=== PATIENT | male | born 1940 | race Caucasian/White ===

== ENCOUNTER → 2017-10-26 09:28 | Outpatient (CLI) | payer MEDICARE, SELFPAY ==
[2016-01-28 10:00] VITALS: BMI 30.7
[2017-08-12 13:58] VITALS: BP 159/78; BMI 31.9
[2017-10-26 10:00] VITALS: PULSE 70; PULSE 88; PULSE 94; PULSE 95; PULSE 96; O2SAT 93; O2SAT 94; O2SAT 95; O2SAT 98
--- NOTE | 2017-10-26 15:05 | WT_ITS ---
PSN 6 Minute Walk Test - 6 Minute Walk Test 6 Minute Walk Test: 6 Minute Walk Test PSN:6-Minute Walk Test Start: 10/26/17 10: 27 Freq: Status: Active Protocol: RESP.6MINW Document 10/26/17 10:00 HG (Rec: 10/26/17 10:30 HG [id number]) 6 Minute Walk Test Date Performed 10/26/17 Time Performed 10:15 Height 5 ft 6 in Weight: 87.09 kg Weight in Pounds 192.[address]: Davis Morfin Assistive device used: Cane Pre-test Oxygen Delivery Method Room Air Pulse Ox (%) 95 Pulse Rate (60-100 beats/min) 70 Dyspnea Juan Scale (0-10) 2 Exertion Juan Scale (6-20) 8 1st minute Oxygen Delivery Method Room Air Pulse Ox (%) 98 Pulse Rate (60-100 beats/min) 96 2nd minute Oxygen Delivery Method Room Air Pulse Ox (%) 93 Pulse Rate (60-100 beats/min) 96 3rd minute Oxygen Delivery Method Room Air Pulse Ox (%) 94 Pulse Rate (60-100 beats/min) 94 4th minute Oxygen Delivery Method Room Air Pulse Ox (%) 93 Pulse Rate (60-100 beats/min) 94 5th minute Oxygen Delivery Method Room Air Pulse Ox (%) 95 Pulse Rate (60-100 beats/min) 96 6th minute Oxygen Delivery Method Room Air Pulse Ox (%) 95 Pulse Rate (60-100 beats/min) 95 Post-test Oxygen Delivery Method Room Air Pulse Ox (%) 95 Pulse Rate (60-100 beats/min) 88 Dyspnea Juan Scale (0-10) 2 Exertion Juan Scale (6-20) 8 Full Laps Walked 11 Partial Lap, Number of Tiles Walked 0 Total Distance Walked (ft) 649 - Interpretation Interpretation: The patient was able to walk 649 feet over the course of 6 minutes on room air with the assistance of a cane. There was no significant tachycardia or desaturations noted during testing. These findings are consistent with a musculoskeletal limitation exercise tolerance. - Recommendations Recommendations: No supplemental oxygen is indicated at this time.
--- NOTE | 2017-10-26 15:08 | PFTCOMP ---
COMPLETE PULMONARY FUNCTION TEST INTERPRETATION Brief HPI: Patient is a 77 year old male, currently under the care of myself, who presents to [facility] for complete pulmonary function tests secondary to diagnosis of COPD. Respiratory therapist reports good effort and reproducible results. Interpretation: Forced expiration spirometry shows no large airways obstructive ventilatory defect with an FEV1 of 66% predicted. There is no significant bronchodilator response by ATS criteria. Spirograms are of good quality and plateau normally. The respiratory flow volume loop shows decreased expiratory flow rates at high lung volumes consistent with small airways obstruction. Lung volumes by body plethysmography show a decreased total lung capacity at 4.17 L, 77% predicted. All other lung volumes are reduced symmetrically. Diffusion capacity by carbon monoxide is decreased at 51 % predicted. The airway resistance is elevated. Compared to previous pulmonary function tests from 09/16/2015, there has been no significant change. Impression: Mild restrictive ventilatory defect with a symmetric reduction diffusing capacity consistent with interstitial lung disease. There is been no significant change compared to previous testing
== END ==
PROVIDERS: Family Provider Student in an Organized Health Care Education/Training Program; PCP Student in an Organized Health Care Education/Training Program; Visit Provider Internal Medicine Critical Care Medicine
DX: J96.11 Chronic respiratory failure with hypoxia (principal); J44.9 Chronic obstructive pulmonary disease, unspecified
CPT/HCPCS: 94060; 94618; 94726; 94729

== ENCOUNTER 2017-11-10 21:14 | Emergency (ER) | payer MEDICARE, SELFPAY ==
[2016-01-28 10:00] VITALS: BMI 30.7
[2017-11-10 21:15] VITALS: BP 86/44; PULSE 68; RESP 19; TEMP 37.2; O2SAT 93; BMI 30.9
--- NOTE | 2017-11-10 21:26 | EKG12_ITS ---
Test Reason : HYPOTENSION Blood Pressure : / mmHG Vent. Rate : 068 BPM Atrial Rate : 068 BPM P-R Int : 202 ms QRS Dur : 166 ms QT Int : 454 ms P-R-T Axes : 023 -42 016 degrees QTc Int : 482 ms Normal sinus rhythm Left axis deviation Right bundle branch block Abnormal ECG Confirmed by CHELA CHOU, MURIEL ([id number]), book or script editor TWAN JERONIMO ([id number]) on 11/12/2017 3:40:42 PM Referred By: SUSAN Confirmed By:MURIEL YORK MD
[2017-11-10 21:45] LABS: Absolute Lymphocyte Count 0.94 X10^3/ul (0.83-4.51); Absolute Neutrophil Count 11.6 X10^3/uL (2.0-7.7); Basophil# 0.01 X10^3/uL; Basophil% 0.1 % (0-1); Hematocrit 32.7 % (40-54); Hemoglobin 10.8 g/dl (13.0-16.5); Lymphocyte # 0.94 X10^3/ul (4.0); Lymphocyte % 6.9 % (19-41); Mean Corpuscular Hgb 31.4 pg (27.0-32.0); Mean Corpuscular Volume 95.1 fL (80-94); Mean Platelet Vol. 10.4 fl (6.2-12.0); Monocyte# 0.98 X10^3/uL; Monocyte% 7.2 % (0-10); Neutrophil % 85.7 % (47-70); POSITIVE COUNT NO; POSITIVE DIFFERENTIAL NO; Platelet Count 212 K/mm3 (150-450); RBC Distribution Width CV 14.3 % (11.6-14.6); RBC Distribution Width SD 49.1 fl (35.1-43.9); Red Blood Count 3.44 M/mm3 (4.6-6.2); White Blood Count 13.6 K/mm3 (4.4-11.0)
[2017-11-10 21:46] LABS: POSITIVE MORPHOLOGY NO
--- NOTE | 2017-11-10 21:50 | RAD_ITS ---
STUDY: X-RAY CHEST REASON FOR EXAM: Male, 77 years old. Lethargy. Hypotension TECHNIQUE: Single AP portable view of the chest. COMPARISON: March 14, 2017 FINDINGS: Pacemaker device on the left. There is elevation the right hemidiaphragm. There is lower lung scarring or atelectasis. There is pleural fibrotic scarring of the right costophrenic angle. Sternal cerclage wires are present from a prior sternotomy. There is cardiac enlargement. Normal mediastinum and sadiq. Normal visualized pulmonary arteries. There is atherosclerotic calcification of the aortic arch with tortuosity. There is demineralization of the osseous structures. Postoperative changes of the right shoulder. There is no demonstrated abnormality of the visualized soft tissue structures of the upper abdomen. RAD/Chest 1 View (Portable) IMPRESSION: Cardiac enlargement. No focal infiltrate. Electronically Signed: Srinivas Colmenares MD at 23:07 EDT , Service support ,
[2017-11-10 22:02] LABS: ALB/GLOB Ratio 0.8 RATIO (0.9-2.4); AST(SGOT) 537 U/L (15-37); Alanine Aminotransfer ALT/SGPT 486 U/L (16-61); Alkaline Phosphatase 222 U/L (45-117); Anion Gap 6 (5-15); BUN 38 mg/dL (7-18); BUN/Creat Ratio 15.2 RATIO (10-20); Calcium,Total 8.5 mg/dL (8.5-10.1); Chloride 105 mmol/L (98-107); EST Glomerular Filtration Rate 27 mL/min (>60); Est Glom Filt Rate - Afr Amer 32 mL/min (>60); Estimated Creatinine Clearance 21.98 ml/min; Globulin 3.7 g/dL (2.2-4.2); Glucose 252 mg/dL (74-106); Potassium 4.5 mmol/L (3.5-5.1); Protein, Total 6.7 g/dL (6.4-8.2); Sodium Level 138 mmol/L (136-145)
--- NOTE | 2017-11-10 22:08 | CT_ITS ---
STUDY: CT ABDOMEN AND PELVIS WITHOUT CONTRAST REASON FOR EXAM: Male, 77 years old. Hypotension. Lethargy RADIATION DOSAGE (If Supplied By Facility): CTDIvol = ( 12.78 ) mGy, DLP = ( 721.52 ) mGycm TECHNIQUE: Transaxial images were obtained from the dome of the diaphragm to the symphysis pubis without oral contrast, and without intravenous contrast. Sagittal and coronal images were reconstructed. Individualized dose optimization techniques were used for this CT. COMPARISON: None. FINDINGS: There is lower lung atelectasis. There is sternotomy wires. There are pacemaker wires in the heart. Mild central biliary dilatation or liver. The common duct measures 1.5 cm. There are multiple gallstones. There are multiple stones in the distal common bile duct, series 2 images 78/207 through 86/207. There are multiple benign calcified granulomata of the liver and spleen. Normal pancreas. Normal bilateral adrenal glands. Normal right kidney. Normal left kidney. No stones or hydronephrosis. Normal visualized stomach. Normal small intestine. Normal colon. There is non-visualization of the appendix. There is diffuse atherosclerotic calcification of the abdominal aorta, without a demonstrated aneurysm. Normal inferior vena cava. Normal retroperitoneum. There is wall thickening of the urinary bladder. There is no free fluid in the abdomen or pelvis. Normal abdominal wall. There are diffuse degenerative changes of the visualized lumbar spine. CT/Abdomen/Pelvis without Cont IMPRESSION: Cholelithiasis with choledocholithiasis. N.B. : The above information has been verbally conveyed by Srinivas Colmenares MD to Dr Emerson Cano , [facility] Physician, on 11/10/2017 23:05:58 (ET). Electronically Signed: Srinivas Colmenares MD at 23:04 EDT , Service support , N.B. : The above information has been verbally conveyed by Srinivas Colmenares MD to Dr Emerson Cano , Covering Physician, on 11/10/2017 23:05:58 (ET).
[2017-11-10 22:12] LABS: Lactic Acid 2.4 mmol/L (0.4-2.0)
--- NOTE | 2017-11-10 22:13 | ED.RN ---
AWARE OF LACTIC ACID OF 2.4.
[2017-11-10 22:14] VITALS: BP 111/52; PULSE 63; RESP 16; O2SAT 95
--- NOTE | 2017-11-10 23:25 | ED.VISSUMM ---
- ER Visit Summary Date of Service: 11/10/17 Chief Complaint: Low blood pressure History of Present Illness: The patient is a 77 M who had low blood pressure at home. states she took and it was 82/37 and 84/48. Patient has been feeling dizzy. He has a decreased p.o. intake. He states he has felt fatigued. He denies any pain anywhere. He does have a little bit of diarrhea. Physical Examination: Vital signs reviewed, significant for a blood pressure of 86/44. HEENT exam unremarkable. Heart is regular rate and rhythm without murmurs. Lungs have diffuse rhonchorous breath sounds which are diminished. Abdomen is soft and nontender. Extremities reveal no edema. Skin exam normal. Neurologic exam normal. Test Results: EKG is normal sinus rhythm with right bundle branch block. Nonspecific ST and T-wave changes noted. Chest x-ray reveals cardiomegaly. White blood cell count 13.6, hemoglobin 10.8. Creatinine 2.5 with a BUN of 38. Total bilirubin is 2.7, ALT 486, AST 537. Lactate 2.4 Emergency Department Course and Treatment: Patient was given IV fluids. He does appear to be dehydrated. With the elevation of his liver enzymes I did obtain a CT scan which shows choledocholithiasis with common bile duct of 1.5 cm[address] I spoke with Dr. Reinoso, who recommended ERCP. We do not have the capabilities here. Patient requested [facility]. I will speak with the physicians there for transfer. He is dehydrated with an elevated lactate. I do not feel that this is infectious. I do not feel that this is severe sepsis. He will not be restarted on any antibiotics Treatment Plan: [] Disposition: Discharge Impression: Choledocholithiasis, acute kidney injury, dehydration This note was generated with [employer] dictation software. It may contain incorrect words, spelling, and punctuation that were not noted in review of the chart prior to signing ED Disposition - Plan for ED Patient: Chief Complaint: Hypotension Referrals: Noah Jean DO [Primary Care Provider] -
[2017-11-10] MEDS: 0.9% Normal Saline 1,000 ML 150 ML IV (23:29)
[2017-11-11 01:17] VITALS: BP 125/56; PULSE 60; RESP 10; RESP 12; O2SAT 91
[2017-11-11 01:38] LABS: Reflex Lactate? Y
== END 2017-11-11 01:35 | disposition short-term general hospital (02) ==
PROVIDERS: Emergency Provider Emergency Medicine; Family Provider Student in an Organized Health Care Education/Training Program; PCP Student in an Organized Health Care Education/Training Program
DX: K80.50 Calculus of bile duct without cholangitis or cholecystitis without obstruction (principal); N17.9 Acute kidney failure, unspecified; E86.0 Dehydration; I25.10 Atherosclerotic heart disease of native coronary artery without angina pectoris; I25.2 Old myocardial infarction; J44.9 Chronic obstructive pulmonary disease, unspecified; E11.9 Type 2 diabetes mellitus without complications; Z95.1 Presence of aortocoronary bypass graft; Z95.0 Presence of cardiac pacemaker; Z79.4 Long term (current) use of insulin; Z79.84 Long term (current) use of oral hypoglycemic drugs; Z79.01 Long term (current) use of anticoagulants; Z79.899 Other long term (current) drug therapy; Z86.73 Personal history of transient ischemic attack (TIA), and cerebral infarction without residual deficits
CPT/HCPCS: 71045; 74176; 80053; 83605; 84484; 85025; 93005; 96360; 96361; 99283; J7030; J7040; A4216

== ENCOUNTER 2018-01-08 16:53 | Emergency (ER) | payer MEDICARE, SELFPAY ==
[2016-01-28 10:00] VITALS: BMI 30.7
[2018-01-08 16:54] VITALS: BP 115/60; PULSE 76; RESP 24; TEMP 37.2; O2SAT 92; BMI 30.9
--- NOTE | 2018-01-08 17:24 | EKG12_ITS ---
Test Reason : HYPOTENSION Blood Pressure : / mmHG Vent. Rate : 068 BPM Atrial Rate : 068 BPM P-R Int : 200 ms QRS Dur : 168 ms QT Int : 454 ms P-R-T Axes : 019 -49 -14 degrees QTc Int : 482 ms Normal sinus rhythm Left axis deviation Right bundle branch block Abnormal ECG Confirmed by CHELA CHOU, MURIEL ([id number]), publication editor TWAN JERONIMO ([id number]) on 01/13/2018 3:45:58 PM Referred By: ROSA Confirmed By:MURIEL YORK MD
--- NOTE | 2018-01-08 17:25 | CT_ITS ---
STUDY: CT ABDOMEN AND PELVIS WITHOUT CONTRAST REASON FOR EXAM: Male, 77 years old. Abdominal pain, recent cholecystectomy RADIATION DOSAGE (If Supplied By Facility): CTDIvol = ( 18.9 ) mGy, DLP = ( 1086.05 ) mGycm TECHNIQUE: Transaxial images were obtained from the lower chest to the upper thighs without oral contrast, and without intravenous contrast. Sagittal and coronal images were reconstructed. Individualized dose optimization techniques were used for this CT. COMPARISON: November 10, 2017 FINDINGS: There are dense opacities in both lower lobes, right more than left. There are small calcified granulomas scattered in both lower lobes. There is fluid in the right pleural margin. There is mild enlargement of the heart. There are coronary artery calcifications. Pacing wires are present. There are calcified lymph nodes in the right hilum. There are calcified lymph nodes in the visualized mediastinum. There is air in the intrahepatic biliary ducts. There are surgical clips in the gallbladder fossa consistent with a prior cholecystectomy. There is a collection in the gallbladder fossa measuring about 5 x 4.5 cm. There is a stent in the common bile duct which terminates in the second portion of the duodenum. There are multiple benign calcified granulomas in the spleen. The pancreas is unremarkable. The adrenal glands are unremarkable. The right kidney is unremarkable. There is no dilatation of the collecting system in the right kidney. The left kidney is unremarkable. There is no dilatation of the collecting system in the left kidney. The stomach is unremarkable. The small bowel is unremarkable. The colon is unremarkable. The appendix is visualized and appears normal. There are moderate scattered vascular calcifications. The IVC is unremarkable. The retroperitoneum is unremarkable. There is minimal fluid in the upper right abdomen and right paracolic gutter. Stranding is present in the right upper quadrant. The urinary bladder is unremarkable. The prostate is normal in size with coarse calcifications. There are small phleboliths scattered in the lower pelvis. There is a small umbilical hernia containing fat. There are moderate degenerative changes in the visualized spine. Sternotomy wires are present. CT/Abdomen/Pelvis without Cont IMPRESSION: The patient has had recent cholecystectomy. There is a fluid collection with air in the gallbladder fossa measuring up to 5 cm in size. This can be seen with a residual infected seroma or an abscess. There is a stent in the common bile duct terminating in the second portion of the duodenum. Air is present in the common bile duct and intrahepatic biliary ducts. There is trace ascites. There is residual inflammation in the right upper quadrant. There is no free air. There are no acute bowel abnormalities. There is a small to moderate right pleural effusion. There is marked bibasilar atelectasis, right greater than left. Electronically Signed: Bailey Michelle MD at 19:16 EDT Tel Direct: [phone], Service support ,
--- NOTE | 2018-01-08 17:40 | RAD_ITS ---
STUDY: X-RAY CHEST REASON FOR EXAM: Male, 77 years old. Hypotension after recent cholecystectomy. TECHNIQUE: Single AP portable view of the chest. COMPARISON: November 10, 2017. FINDINGS: Cardiac monitoring leads are present. Patient has left-sided intracardiac pacemaker. There is moderate elevation of the right hemidiaphragm. The left lung is expanded. There are prominent bronchovascular markings in both lungs. There is right basilar subsegmental atelectasis. There is no demonstrated pleural abnormality. There is mild cardiac enlargement. Normal mediastinum and sadiq. Normal visualized pulmonary arteries. There is atherosclerotic calcification of the aortic arch with tortuosity. There is demineralization of the osseous structures. There are degenerative changes of both shoulders. There is no demonstrated abnormality of the visualized soft tissue structures of the upper abdomen. RAD/Chest 1 View (Portable) IMPRESSION: Right basilar subsegmental atelectasis. Electronically Signed: Tequila Farah MD at 18:55 EDT , Service support ,
[2018-01-08] MEDS: Ipratropium/Albuterol Sulfate 3 ML AMPUL.NEB INHALATION (17:47)
[2018-01-08 17:48] VITALS: PULSE 71; RESP 16
[2018-01-08 17:48] LABS: Absolute Lymphocyte Count 1.03 X10^3/ul (0.83-4.51); Absolute Neutrophil Count 8.6 X10^3/uL (2.0-7.7); Basophil# 0.03 X10^3/uL; Basophil% 0.3 % (0-1); Eosinophil# 0.05 X10^3/uL; Eosinophils% 0.5 % (0-5); Hematocrit 26.7 % (40-54); Hemoglobin 8.6 g/dl (13.0-16.5); Lymphocyte # 1.03 X10^3/ul (4.0); Lymphocyte % 9.3 % (19-41); Mean Corp Hgb Conc 32.2 g/gl (32-36); Mean Corpuscular Hgb 31.4 pg (27.0-32.0); Mean Corpuscular Volume 97.4 fL (80-94); Mean Platelet Vol. 10.1 fl (6.2-12.0); Monocyte# 1.32 X10^3/uL; Monocyte% 11.9 % (0-10); Neutrophil % 77.6 % (47-70); POSITIVE COUNT NO; POSITIVE DIFFERENTIAL NO; POSITIVE MORPHOLOGY NO; Platelet Count 292 K/mm3 (150-450); RBC Distribution Width CV 14.2 % (11.6-14.6); RBC Distribution Width SD 50.4 fl (35.1-43.9); Red Blood Count 2.74 M/mm3 (4.6-6.2); White Blood Count 11.1 K/mm3 (4.4-11.0)
[2018-01-08 18:11] LABS: ALB/GLOB Ratio 0.4 RATIO (0.9-2.4); AST(SGOT) 46 U/L (15-37); Alanine Aminotransfer ALT/SGPT 44 U/L (16-61); Alkaline Phosphatase 106 U/L (45-117); Anion Gap 8 (5-15); BUN 50 mg/dL (7-18); BUN/Creat Ratio 23.8 RATIO (10-20); Calcium,Total 8.2 mg/dL (8.5-10.1); Chloride 107 mmol/L (98-107); EST Glomerular Filtration Rate 33 mL/min (>60); Est Glom Filt Rate - Afr Amer 40 mL/min (>60); Estimated Creatinine Clearance 26.16 ml/min; Globulin 4.6 g/dL (2.2-4.2); Glucose 199 mg/dL (74-106); Lactic Acid 0.7 mmol/L (0.4-2.0); Lipase 556 U/L (73-393); Potassium 4.3 mmol/L (3.5-5.1); Protein, Total 6.6 g/dL (6.4-8.2); Sodium Level 141 mmol/L (136-145)
[2018-01-08] MEDS: 0.9% Normal Saline 1,000 ML 150 ML IV (18:22)
[2018-01-08 19:00] LABS: Bacteria 0 SEEN /hpf (None Seen); Mucous, Urine 0 SEEN /hpf (<or=2+); Red Blood Cells-Urine 0 SEEN /hpf (0-5)
[2018-01-08 19:02] LABS: Color, Urine Yellow (Yellow); Glucose, Dipstick Normal (Normal); Ketone-Dipstick Negative (Negative); Leukocyte Esterase-Dipstick 100 /ul (Negative); Nitrite-Dipstick Negative (Negative); Occult Blood-Urine Negative /ul (Negative); Protein-Dipstick 30 mg/dl (Negative); Specific Gravity, Urine 1.015 (1.002-1.030); Urine Bilirubin Dipstick Negative (Negative); Urine Clarity Cloudy (Clear); Urine Urobilinogen Normal (Normal)
[2018-01-08 19:09] VITALS: BP 95/44; PULSE 68; RESP 21; O2SAT 88
[2018-01-08 19:16] LABS: Fine Granular Cast- Urine 0-5 SEEN /lpf (0-5); Squamous Epithelial Cells - UA 0-5 SEEN /hpf (0-5)
[2018-01-08 19:18] LABS: White Blood Cells 0-5 SEEN /hpf (0-5)
[2018-01-08 19:22] LABS: Hyaline Cast 5-10 SEEN /lpf (0-5)
[2018-01-08 19:25] LABS: Transitional Epithelial - Ur 0 SEEN /hpf (0-5)
--- NOTE | 2018-01-08 21:18 | ED.VISSUMM ---
- ER Visit Summary Date of Service: 01/08/18 Chief Complaint: [Low blood pressure] History of Present Illness: The patient is a 77 M [presents the emergency department with complaint of low blood pressure that his noticed today. Patient apparently had his gallbladder removed 9 days ago at [facility]. Patient has been home about a week. Patient has fallen 3 times in the week and 2 days ago was seen at [facility] after a fall. Patient denies feeling lightheaded or dizzy currently but does describe generalized weakness. Per patient also 2 days ago had fever up to 101?. Patient has a history of COPD and normally wears oxygen and states that he does not feel any more short of breath than usual. Patient denies any chest pain. Patient tells me that he has a stent in his liver that needs to be removed on January 14. Family is requesting to go back to [facility] because the squad they called would not take him there initially.] Physical Examination: [HEENT-PERRLA, EOMI. Cranial nerves II through XII grossly intact. TMs clear. Mucous membranes slightly dry.. No adenopathy. Cardiovascular-regular rate and rhythm without murmur or ectopy Lungs-diminished bilaterally. Some faint expiratory wheezes noted bilaterally. Mild tachypnea. No accessory muscle use or retractions. Abdomen-normoactive bowel sounds, soft. Patient has some tenderness palpation over the right upper quadrant and epigastric region. With some guarding. There is no rebound, rigidity, or peritoneal signs. Extremities-intact ?4, normal range of motion, normal pulses, atraumatic] Test Results: [EKG obtained on arrival showed a sinus rhythm with a ventricular rate of 68 bpm with a right bundle branch block CBC with differential showed a white count 11.1, hemoglobin 8.6, hematocrit 26.7, platelets 292. Chemistries unremarkable. BUN was 15 creatinine was 2.10. LFTs were unremarkable. Lipase was elevated at 556. Troponin was 0.047. Lactate was 0.7. Chest x-ray showed a right subsegmental atelectasis. CT scan of the abdomen and pelvis showed a 5 cm fluid collection in the gallbladder fossa that could be an infected hematoma or abscess.] Emergency Department Course and Treatment: [Patient was started on Zosyn empirically 4.5 g IV. Patient was given a liter normal same fluid bolus.] Treatment Plan: [Patient case was discussed with [facility] transfer line and was accepted by Dr. Gianluca Starr for transfer to their facility.] Disposition: [Transfer] Impression: [Hypotension Dehydration Postop infection status post cholecystectomy Anemia Elevated troponin ] This note was generated with [email or web address] dictation software. It may contain incorrect words, spelling, and punctuation that were not noted in review of the chart prior to signing ED Disposition - Plan for ED Patient: Chief Complaint: Hypotension Referrals: Noah Jean DO [Primary Care Provider] -
--- NOTE | 2018-01-08 21:23 | ED.DCSUM_ITS ---
- ER Visit Summary Date of Service: 01/08/18 Chief Complaint: [Low blood pressure] History of Present Illness: The patient is a 77 M [presents the emergency department with complaint of low blood pressure that his noticed today. Patient apparently had his gallbladder removed 9 days ago at [facility]. Patient has been home about a week. Patient has fallen 3 times in the week and 2 days ago was seen at [facility] after a fall. Patient denies feeling lightheaded or dizzy currently but does describe generalized weakness. Per patient also 2 days ago had fever up to 101?. Patient has a history of COPD and normally wears oxygen and states that he does not feel any more short of breath than usual. Patient denies any chest pain. Patient tells me that he has a stent in his liver that needs to be removed on January 14. Family is requesting to go back to [facility] because the squad they called would not take him there initially.] Physical Examination: [HEENT-PERRLA, EOMI. Cranial nerves II through XII grossly intact. TMs clear. Mucous membranes slightly dry.. No adenopathy. Cardiovascular-regular rate and rhythm without murmur or ectopy Lungs-diminished bilaterally. Some faint expiratory wheezes noted bilaterally. Mild tachypnea. No accessory muscle use or retractions. Abdomen-normoactive bowel sounds, soft. Patient has some tenderness palpation over the right upper quadrant and epigastric region. With some guarding. There is no rebound, rigidity, or peritoneal signs. Extremities-intact ?4, normal range of motion, normal pulses, atraumatic] Test Results: [EKG obtained on arrival showed a sinus rhythm with a ventricular rate of 68 bpm with a right bundle branch block CBC with differential showed a white count 11.1, hemoglobin 8.6, hematocrit 26.7, platelets 292. Chemistries unremarkable. BUN was 15 creatinine was 2.10. LFTs were unremarkable. Lipase was elevated at 556. Troponin was 0.047. Lactate was 0.7. Chest x-ray showed a right subsegmental atelectasis. CT scan of the abdomen and pelvis showed a 5 cm fluid collection in the gallbladder fossa that could be an infected hematoma or abscess.] Emergency Department Course and Treatment: [Patient was started on Zosyn empirically 4.5 g IV. Patient was given a liter normal same fluid bolus.] Treatment Plan: [Patient case was discussed with [facility] transfer line and was accepted by Dr. Gianluca Starr for transfer to their facility.] Disposition: [Transfer] Impression: [Hypotension Dehydration Postop infection status post cholecystectomy Anemia Elevated troponin ] This note was generated with [employer] dictation software. It may contain incorrect words, spelling, and punctuation that were not noted in review of the chart prior to signing ED Disposition - Plan for ED Patient: Chief Complaint: Hypotension Referrals: Noah Jean DO [Primary Care Provider] -
[2018-01-08 21:56] VITALS: BP 127/42; PULSE 64; RESP 18
== END 2018-01-08 22:16 | disposition short-term general hospital (02) ==
LOC: ED 18:51
PROVIDERS: Emergency Provider Emergency Medicine; Family Provider Student in an Organized Health Care Education/Training Program; PCP Student in an Organized Health Care Education/Training Program
DX: I95.9 Hypotension, unspecified (principal); E86.0 Dehydration; T81.4XXA Infection following a procedure, initial encounter; D64.9 Anemia, unspecified; R79.89 Other specified abnormal findings of blood chemistry; J44.9 Chronic obstructive pulmonary disease, unspecified; Z99.81 Dependence on supplemental oxygen; I25.10 Atherosclerotic heart disease of native coronary artery without angina pectoris; I25.2 Old myocardial infarction; I10 Essential (primary) hypertension; E78.00 Pure hypercholesterolemia, unspecified; E11.9 Type 2 diabetes mellitus without complications; Z86.73 Personal history of transient ischemic attack (TIA), and cerebral infarction without residual deficits; Z95.1 Presence of aortocoronary bypass graft; Z79.4 Long term (current) use of insulin; Z79.84 Long term (current) use of oral hypoglycemic drugs; Z79.01 Long term (current) use of anticoagulants; Z79.899 Other long term (current) drug therapy
CPT/HCPCS: 71045; 74176; 80053; 81001; 83605; 83690; 84484; 85025; 93005; 94640; 96374; 99285; J7030; A4216

== ENCOUNTER → 2018-02-23 10:36 | Outpatient (CLI) | payer MEDICARE, SELFPAY ==
[2016-01-28 10:00] VITALS: BMI 30.7
== END ==
PROVIDERS: Family Provider Student in an Organized Health Care Education/Training Program; PCP Student in an Organized Health Care Education/Training Program; Visit Provider Nurse Practitioner Acute Care
DX: R06.02 Shortness of breath (principal)
CPT/HCPCS: 71046

== ENCOUNTER 2018-03-03 12:03 | Emergency (ER) | payer MEDICARE, SELFPAY ==
[2016-01-28 10:00] VITALS: BMI 30.7
[2018-03-03 12:03] VITALS: BP 124/59; PULSE 66; RESP 22; TEMP 36.7; O2SAT 95; BMI 31.4
[2018-03-03 12:16] VITALS: BP 135/62; PULSE 74; RESP 26; O2SAT 94
[2018-03-03 12:19] VITALS: PULSE 69; RESP 23; TEMP 37.1; O2SAT 96
--- NOTE | 2018-03-03 13:08 | ED.VISSUMM ---
- ER Visit Summary Date of Service: 03/03/18 Chief Complaint: Sent to ER stat for abnormal tests History of Present Illness: The patient is a 77 M who has multiple medical problems. He is presently asymptomatic. His Lasix dose was recently increased because of exacerbation of CHF. states he is scheduled for a colonoscopy by Dr. Reinoso March 10. I spoke with Dr. Reinoso and I was informed that he is scheduled for an office visit and had a colonoscopy. His creatinine has increased to 1.59-2.52. He has seen nephrology in the past. He has not been seen by bulb weeder 1-2 years. Potassium is not elevated. Patient has no new symptoms from baseline. He does have multiple medical problems. He states his stool is green black. It is not black sticky or have an odor to it. He is on Plavix. Is on no anticoagulant presently. He denies any chest pain, increased orthopnea and denies PND. He denies any increased dyspnea. Physical Examination: Vital signs are noted and remarkable for a slight elevation blood pressure 135/62. HEENT is unremarkable with the exception of pale conjunctival. Heart is regular. Lungs are clear auscultation. Abdomen soft nontender. He has mild edema the lower extremity, 1+ pitting. His skin appears pale. There is erythema in the crease of pulses. Neuro exam is nonfocal. Test Results: Blood work that was obtained on the indicates a drop in his hemoglobin from 8.9-8.2. Stool for occult blood was positive. His creatinine has increased from 1.59-2.52. Emergency Department Course and Treatment: Dr. Del Rio was contacted. He has an appointment to see Dr. Del Rio tomorrow March 04 at 1:10 PM. Spoke with bulb weeder he is requesting patient to call office today to be seen in 1-2 weeks and recommended decreasing his Lasix dose. Time spent to make arrangements for outpatient follow-up with surgeon and nephrology 25 minutes. Treatment Plan: As described in emergency department course Disposition: Discharged to home with outpatient follow-up with Dr. Del Rio for anemia with heme occult positive stool and nephrology for worsening renal failure. Impression: 1. Anemia asymptomatic 2. Hemoccult-positive stool 3. Acute on chronic renal failure This note was generated with [employer] software. It may contain incorrect words, spelling, and punctuation that were not noted in review of the chart prior to signing ED Disposition - Plan for ED Patient: Disposition: Home or Assisted Living Chief Complaint: Abn Labs Instructions: ED Bleed UGI Stable, ED Insufficiency Renal Referrals: Rony Huffman MD [STAFF PHYSICIAN] - Mateus Reinoso MD [STAFF PHYSICIAN] - 03/04/18 1:10 pm Noah Jean DO [Primary Care Provider] - 1-2 Weeks
== END 2018-03-03 13:39 | disposition home or self-care (01) ==
LOC: ED 13:27
PROVIDERS: Emergency Provider Emergency Medicine; Family Provider Student in an Organized Health Care Education/Training Program; PCP Student in an Organized Health Care Education/Training Program
DX: D64.9 Anemia, unspecified (principal); R19.5 Other fecal abnormalities; N17.9 Acute kidney failure, unspecified; N18.6 End stage renal disease; I50.9 Heart failure, unspecified; Z79.01 Long term (current) use of anticoagulants; Z79.4 Long term (current) use of insulin; Z79.899 Other long term (current) drug therapy
CPT/HCPCS: 99282

== ENCOUNTER 2018-03-10 14:46 | Outpatient (RCR) | payer MEDICARE, SELFPAY ==
[2016-01-28 10:00] VITALS: BMI 30.7
[2018-03-10 15:10] VITALS: BP 145/74; PULSE 83; RESP 24; TEMP 37; BMI 30.4
--- NOTE | 2018-03-10 16:50 | PCM.WC.HP ---
(1) Pressure injury of deep tissue of left heel Status: Acute Current Visit: Yes Code(s): L89.629 - Pressure ulcer of left heel, unspecified stage (2) Pressure injury of right buttock, stage 2 Status: Acute Current Visit: Yes Code(s): L89.312 - Pressure ulcer of right buttock, stage 2 (3) Benign essential hypertension Status: Chronic Current Visit: No Code(s): I10 - Essential (primary) hypertension (4) Chronic renal failure, stage 3 (moderate) Status: Chronic Current Visit: No Code(s): N18.3 - Chronic kidney disease, stage 3 (moderate) (5) Hyperlipidemia Status: Chronic Current Visit: No Code(s): E78.5 - Hyperlipidemia, unspecified (6) Obesity (BMI 30-39.9) Status: Chronic Current Visit: No Code(s): E66.9 - Obesity, unspecified (7) Sleep apnea Status: Chronic Current Visit: No Qualifiers: Code(s): G47.30 - Sleep apnea, unspecified Comment: BiPAP 25/19 cm of water with a 2 L/min oxygen bleed (8) Stage 2 moderate COPD by GOLD classification Status: Chronic Current Visit: No Code(s): J44.9 - Chronic obstructive pulmonary disease, unspecified (9) Type 2 diabetes mellitus Status: Chronic Current Visit: No Code(s): E11.9 - Type 2 diabetes mellitus without complications History of Present Illness Date of Service: 03/10/18 Chief Complaint: Nonhealing ulcer right buttock and sore on left heel History of Wound: 77 year old male presented to the wound center due to nonhealing ulcer to right buttock and sore in left heel. Past medical history as documented above. Patient's stated that patient developed an open area to the right buttock after his choleycystectomy surgery in December of 2017. stated after his rectal tube was removed she noticed the right buttock ulcer. Patient's also noted a couple weeks ago that he had a sore to the left heel that was purple and not opened. His stated she was applying barrier cream and cornstarch to bilateral buttocks and triple antibiotic ointment to the left heel. also stated that patient is incontinent of stool and urine. His stated that he does have chronic bilateral lower extremity edema which he does follow up with cardiology and nephrology. He does not wear compression stockings has not seen a lens grinder for couple of years. He was provided prescription for diabetic shoes which he has not obtained at this time. Patient spends the majority of his time at home in his recliner chair and has limited mobility d/t his chronic comorbidities. The patient otherwise denies any fever, chills, nausea, vomiting, shortness of breath, chest pain or pressure, palpitations, orthopnea, syncope or presyncopal episodes. Past Medical History Past Medical History: Chronic Problems (Last Reviewed 03/09/18 @ 10:38 by Deepti Sharma NP-C) Chronic respiratory failure with hypoxia (Chronic) Stage 2 moderate COPD by GOLD classification (Chronic) Benign essential hypertension (Chronic) Hyperlipidemia (Chronic) Type 2 diabetes mellitus (Chronic) CAD (coronary artery disease) (Chronic) CABG X 4 vessels in 1998 History of coronary artery bypass graft (Chronic) Pacemaker (Chronic) Anemia in chronic kidney disease (Chronic) Chronic renal failure, stage 3 (moderate) (Chronic) Obesity (BMI 30-39.9) (Chronic) Diabetes (Chronic) elevated right hemidiaphragm (Chronic) Carotid stenosis (Chronic) Pulmonary HTN (Chronic) RVSP 63 mmHg Sleep apnea (Chronic) BiPAP 25/19 cm of water with a 2 L/min oxygen bleed Surgical History: cataract - bilateral, coronary bypass surgery - 199 X 4 vessels, pacemaker implantation Allergies/Adverse Reactions: Allergies adhesive Allergy (Verified 03/10/18 15:51) Rash Beef Containing Products Allergy (Verified 03/10/18 15:51) Other cortisone Allergy (Verified 03/10/18 15:51) Other NOVACAINE Allergy (Uncoded 03/09/18 10:04) Other Home Medications: Ambulatory Orders Medication Instructions Recorded Carvedilol [Coreg (Beta Sarwat)] 25 mg PO BID 07/13/14 Cholecalciferol (VIT D3) [Vitamin 1,000 unit PO DAILY 07/13/14 D3] Nitroglycerin [Nitrostat] 0.4 mg SUBLINGUAL Q5M PRN 07/13/14 [place]-3 Fatty Acids/Fish Oil 1 ea PO DAILY 07/13/14 [[place]ford 3 1,000 mg Softgel] Atorvastatin Calcium [Lipitor] 40 mg PO QHS tab 06/04/15 Gabapentin [Neurontin] 300 mg PO TIDCM cap 06/04/15 Clopidogrel Bisulfate [Plavix] 75 mg PO DAILY #30 tab 06/14/15 Famotidine [Pepcid] 20 mg PO BID #60 tab 06/14/15 B12/Levomefolate Calcium/B-6 1 ea PO DAILY 03/14/17 [Folbic Rf Tablet] B6/FA/B12/Co Q10/Herb No.225 1 ea PO DAILY 03/14/17 [Healthy Heart Complex Tablet] Insulin NPH Human Isophane 12 unit SQ DAILY 03/14/17 [Novolin N] Multivitamin [Daily Multiple 1 ea PO DAILY 03/14/17 Vitamin] glipiZIDE XL [Glucotrol Xl] 10 mg PO BID 03/14/17 ferrous sulfate 325 mg (65 mg 325 mg PO QDAY tab 02/23/18 iron) tablet furosemide 20 mg tablet 20 mg PO QDAY 02/23/18 Insulin NPH Human [Humulin N (Bkc)] 6 units SC QHS 03/10/18 - Family History Maternal Family History: Family History (Last Reviewed 03/09/18 @ 10:38 by ASHLEY Reese) Father Heart disease Mother Lung cancer Cancer - breast Paternal Family History: Family History (Last Reviewed 03/09/18 @ 10:38 by ASHLEY Reese) Father Heart disease Mother Lung cancer Diabetes, Heart Disease, Hypertension Smoking Status: Never smoker Review of Systems Constitutional: Denies: Chills, Fever, Weight Change Eyes: Denies: Pain, Vision Change HEENT: Denies: Difficulty Hearing, Difficulty Swallowing, Sinus Congestion Cardiovascular: Denies: Chest Pain, Palpitations Respiratory: Denies: Cough, Shortness of Breath Gastrointestinal: Reports: Diarrhea - stated he has been having diarrhea for months. Denies: Nausea, Vomiting Genitourinary: Reports: Incontinence. Denies: Dysuria, Hematuria Skin: Reports: Wounds - right buttock open area left heel nonopen purple area Neurological: Denies: Balance problems Endocrine: Denies: Heat/ Cold Intolerance, Polydipsia, Polyuria Hematologic/ Lymphatic: Denies: Easy Bruising, Easy Bleeding - Physical Exam Vital Signs Temp Pulse Resp BP 98.6 F 83 24 H 145/74 H 03/10/18 15:10 03/10/18 15:10 03/10/18 15:10 03/10/18 15:10 General: Alert, Oriented x3 HEENT: Atraumatic, PERRLA, EOMI Neck: Supple, No JVD, Negative Carotid Bruits Lungs: Clear to auscultation, Diminished - bases wears n.c. oxygen Cardiovascular: Regular rate, Regular Rhythm, Normal S1, Normal S2 Abdomen: Bowel Sounds Present, Soft, Non Tender Extremities: No edema, Capillary Refill Less than 3 Seconds, Diminished Peripheral Pulses - DP bilaterally, Edema - 3+ ble Skin: Ulcer/ Wound - right buttock stage 2 non healing ulcer with adherant slough, no signs of acute infection at this time, - - deep tissue injury to left heel, heel is soft with surounding purple discoloration, no open area at this time Wound Measurements and Assessment WC - Nurse 1 - General Ulcer Measurement Start: 03/10/18 15:08 Freq: Status: Active Protocol: Activity Type Activity Date Activity User E-Sign Co-Sign Detail Recorded Client Recorded Date Recorded By Document 03/10/18 15:10 DL [id number] 03/10/18 15:45 DL 03/10/18 15:10 Wound Center Nurse 1 [Ulcer Assessment] #2 R Buttocks -Current Size (cm) - Length 1.1 -Current Size (cm) - Width 0.7 -Current Size (cm) - Depth 0.2 -Total Square Cm 0.77 -Photo Taken Yes -Classification - Thickness Full Thickness without Exposed Support Structure -Exudate Amt Small (1-33%) -Exudate Type Serosanguineous -Wound Margin Distinct, Outline Attached -Granulation Amt Large (67-100%) -Granulation Quality [place] -Necrosis Amt Small (1-33%) -Necrotic Tissue Type Adherent Slough -Structure Exposed N/A -Texture (Terri-wound Skin Appearance) Scarring -Moisture (Terri-wound Skin Appearance No Abnormality ) -Color (Terri-wound Skin Appearance) No Abnormality Rubor -Temperature (Terri-wound Skin No Abnormality Appearance) (Pt Warm) -Tenderness on Palpation (Terri-wound Yes Skin Appearance) -Ulcer Cleansing Wound Cleanser -Foul Odor after Cleansing No #1 L Heel -Current Size (cm) - Length 0.1 -Current Size (cm) - Width 0.1 -Current Size (cm) - Depth 0.1 -Total Square Cm 0.01 -Photo Taken Yes -Classification - Pressure Ulcer Suspected Deep Tissue Injury -Exudate Amt None Present (0 %) -Wound Margin Flat & Intact -Granulation Amt None Present (0 %) -Slough/Fibrin No -Structure Exposed N/A -Texture (Terri-wound Skin Appearance) Localized Edema -Moisture (Terri-wound Skin Appearance No Abnormality ) -Color (Terri-wound Skin Appearance) Ecchymosis -Tenderness on Palpation (Terri-wound Yes Skin Appearance) -Ulcer Cleansing Rinsed/ Irrigated with Saline -Foul Odor after Cleansing No [Edema Assessment] -Right Calf (cm) 39.4 -Right Ankle (cm) 27.5 -Left Calf (cm) 39.8 -Left Ankle (cm) 26.5 WC - Nurse 2 - General Ulcer CM Notes Start: 03/10/18 15:08 Freq: Status: Active Protocol: Activity Type Activity Date Activity User E-Sign Co-Sign Detail Recorded Client Recorded Date Recorded By Document 03/10/18 16:14 [id number] 03/10/18 16:25 03/10/18 16:14 Wound Center Nurse 2 [Procedure/Treatment] #2 R Buttocks -Time 16:17 -Correct Patient Yes -Correct Side, Site, Position Yes -Correct Procedure Yes -Procedure Performed Yes -Type of Procedure Debridement -Clinical Debridement Subcutaneous -Post Debridement Size (cm) - Length 2.9 -Post Debridement Size (cm) - Width 1.8 -Post Debridement Size (cm) - Depth 0.1 -Total Square Cm 5.22 -Wound/Ulcer Outcome Not Healed -Ulcer Cleansing Not Cleansed -Foul Odor after Cleansing No -Bioengineered Tissue No -Bleeding Controlled with NA -Treatment Response Procedure Tolerated Well #1 L Heel -Time 16:20 -Correct Patient No -Correct Side, Site, Position No -Correct Procedure No -Procedure Performed No -Post Debridement Size (cm) - Length 0.1 -Post Debridement Size (cm) - Width 0.1 -Post Debridement Size (cm) - Depth 0.1 -Total Square Cm 0.01 -Wound/Ulcer Outcome Not Healed [See Physician Procedure note for Specifics] Pain Scale: 0-10 Numeric [Pain] -Is Patient Pain Free? Yes Musculoskeletal: No Tenderness to Palpation of Joints or Extremities Lymphatic: No Cervical, Supraclavicular, or Inguinal Adenopathy Neurological: Neuro grossly intact Psych/Mental Status: Normal Affect, Alert and oriented to time, place, person, mood and affect Debridement Note Post-Debridement Measurements/Treatment WC - Nurse 2 - General Ulcer CM Notes Start: 03/10/18 15:08 Freq: Status: Active Protocol: Activity Type Activity Date Activity User E-Sign Co-Sign Detail Recorded Client Recorded Date Recorded By Document 03/10/18 16:14 [id number] 03/10/18 16:25 CS 03/10/18 16:14 Wound Center Nurse 2 #2 R Buttocks -Time 16:17 -Correct Patient Yes -Correct Side, Site, Position Yes -Correct Procedure Yes -Procedure Performed Yes -Type of Procedure Debridement -Clinical Debridement Subcutaneous -Post Debridement Size (cm) - Length 2.9 -Post Debridement Size (cm) - Width 1.8 -Post Debridement Size (cm) - Depth 0.1 -Total Square Cm 5.22 -Wound/Ulcer Outcome Not Healed -Ulcer Cleansing Not Cleansed -Foul Odor after Cleansing No -Bioengineered Tissue No -Bleeding Controlled with NA -Treatment Response Procedure Tolerated Well #1 L Heel -Time 16:20 -Correct Patient No -Correct Side, Site, Position No -Correct Procedure No -Procedure Performed No -Post Debridement Size (cm) - Length 0.1 -Post Debridement Size (cm) - Width 0.1 -Post Debridement Size (cm) - Depth 0.1 -Total Square Cm 0.01 -Wound/Ulcer Outcome Not Healed Pain Scale: 0-10 Numeric Is Patient Pain Free? Yes Wound debrided: buttock stage 2 pressure ulcer Laterality: Right Type of Debridement: Excisional debridement Depth: Down to and including healthy tissue, in the subcutaneous layer Percentage of wound debrided: 100 Instrument Used: 5mm curette Tissue Removed: Slough and devitalized tissue Severity: Fat Layer Exposed Amount of bleeding with debridement: Mild Bleeding Controlled with: Pressure, Compression and gauze Patient tolerated procedure well Assessment/Plan Active Problems (Last Reviewed 03/09/18 @ 10:38 by ASHLEY Reese) Pressure injury of deep tissue of left heel (Acute) Pressure injury of right buttock, stage 2 (Acute) Assessment: see above diagnoses Plan: The patient was seen and examined at the wound center today and was updated on the plan of care. A subcutaneous debridement was performed today. The patient tolerated the procedure well. The patients wound care will consist of aquacel and optifoam daily to right buttock ulcer. Suspected deep tissue injury of left heel and cover with gauze for cushion. Discussed importance of off loading mechanisms and interventions. Discussed importance of picking up diabetic shoes and scheduling appointment with lens grinder. Pre-albumin and ESR ordered and reviewed baseline labs that was done at hospital recently. Vascular studies ordered. Patient educated on the importance of diet on wound healing and instructed to increase protein and vitamin C intake. Patient verbalized understanding. Patient will follow up at wound healing center in one week or sooner if needed. This note was generated with [employer] dictation software. It may contain incorrect words, spelling, and punctuation that were not noted in checking the note before signing. Code Visit Office Visits / Consults: [id number] OV L4 Est 111xxx-113xx: [id number] Raysa subq tissue 20 sq cm/<
[2018-03-10 18:04] LABS: Erythrocyte Sedimentation Rate 54 mm/hr (0-20)
[2018-03-10 18:30] LABS: Prealbumin 14.3 mg/dL (20.0-40.0)
== END 2018-03-11 23:59 ==
LOC: WC 14:46
PROVIDERS: Family Provider Student in an Organized Health Care Education/Training Program; PCP Student in an Organized Health Care Education/Training Program; Visit Provider Nurse Practitioner Family
DX: E11.622 Type 2 diabetes mellitus with other skin ulcer (principal); E11.22 Type 2 diabetes mellitus with diabetic chronic kidney disease; I12.9 Hypertensive chronic kidney disease with stage 1 through stage 4 chronic kidney disease, or unspecified chronic kidney disease; N18.3 Chronic kidney disease, stage 3 (moderate); G47.30 Sleep apnea, unspecified; E78.5 Hyperlipidemia, unspecified; E66.9 Obesity, unspecified; Z68.30 Body mass index [BMI] 30.0-30.9, adult; Z71.3 Dietary counseling and surveillance; J44.9 Chronic obstructive pulmonary disease, unspecified; J96.11 Chronic respiratory failure with hypoxia; I25.10 Atherosclerotic heart disease of native coronary artery without angina pectoris; Z95.1 Presence of aortocoronary bypass graft; L89.312 Pressure ulcer of right buttock, stage 2
CPT/HCPCS: 11042; 84134; 85652; 99204; G0463

== ENCOUNTER 2018-03-21 10:15 | Day surgery (SDC) | payer MEDICARE, SELFPAY ==
[2016-01-28 10:00] VITALS: BMI 30.7
--- NOTE | 2018-03-21 | IMM_PTH ---
PATIENT: LUIS VIDAL LOC: EN U#:[id number] AGE/SX: 77/M ROOM: RE03/21/[address]: Dr. Mateus Reinoso MD : 1940 BED: DIS: 03/21/2018 SPEC #: [id number] RECD: 03/22/18 14:28 STATUS: ANGIE REStefania #: [id number] KARRI: 03/21/18 00:[address]: Mateus Reinoso DEPT: IMMUNOHISTOCHEMISTRY RECD BY: Dasha Majano ENTERED: 03/22/18 14:29 SP TYPE: IMMUNO OTHR DR: Dr. Noah Jean DO Tissues: Stomach, NOS Procedures: H Pylori (initial) PHYSICIAN & INSTITUTION [place] [id number] SPECIMEN INFORMATION: Tissue Source: Antral biopsy Clinical Info: Anemia, change in bowel habits, rectal bleeding, reflux Specimen Number: [id number] CPT code: 14017 METHODOLOGY: Deparaffinized sections of prefer/formalin-fixed tissue or PAP/DQ stained slides are incubated with monoclonal/polyclonal antibodies/oligonucleotide probes. Localization is made via biotin free immunoperoxidase method. Appropriate controls are performed and reacted as expected. Results on target cell population are indicated in the following table: RESULTS: ANTIBODY / CLONE RESULT H Pylori (polyclonal) negative These tests were developed and their performance characteristics determined by [facility]. They may not have been cleared or approved by the U.S. Food and Drug Administration. The FDA has determined that such clearance or approval is not necessary. INTERPRETATION: Antral biopsy: Negative for Helicobacter pylori organisms. SJ:damian 03/23/18
[2018-03-21 10:51] VITALS: BP 167/87; PULSE 62; RESP 18; TEMP 36.6; O2SAT 100; BMI 29.2
[2018-03-21 11:20] LABS: Bedside Glucose 76 mg/dL (70-110)
--- NOTE | 2018-03-21 12:00 | EGD_PTH ---
PATIENT: LUIS VIDAL LOC: EN U#:[id number] AGE/SX: 77/M ROOM: RE03/21/[address]: Dr. Mateus Reinoso MD : 1940 BED: DIS: 03/21/2018 SPEC #: [id number] RECD: 03/21/18 14:34 STATUS: ANGIE AURE #: [id number] KARRI: 03/21/18 12:[address]: Mateus Reinoso DEPT: SURGICAL PATHOLOGY RECD BY: Mathieu Bose ENTERED: 03/21/18 14:50 SP TYPE: EGD BIOPSY OTHR DR: Dr. Noah Jean, Tissues: Gastric mucous membrane Procedures: Surgery Specimen Level IV HEADER OPERATION: [place] [place] DIAGNOSIS: Anemia, change in bowel habits, rectal bleeding, reflux TISSUE SUBMITTED: Antral biopsy for pathology MICROSCOPIC DIAGNOSIS Antral biopsy: Mild gastritis. See microscopic description and comment. SJ:damian 03/22/18 COMMENT The results of immunohistochemistry for Helicobacter pylori will be reported separately ([id number]). MICROSCOPIC DESCRIPTION Slides are reviewed. The specimen shows fragments of gastric mucosa with chronic inflammatory cell infiltrates in the lamina propria consisting of lymphocytes and plasma cells, consistent with mild chronic gastritis. GROSS DESCRIPTION Received in fixative is one container labeled with the patient's name and designated antral biopsy. The specimen consists of one irregular fragment of light richard soft tissue that measures 0.3 x 0.3 x 0.1 cm. The specimen is totally submitted in one cassette. / ALLISON:damian 03/21/18 TC:3 CPT: 04357
[2018-03-21 13:05] VITALS: BP 128/62; BP 167/87; PULSE 72; RESP 18; TEMP 36.7; O2SAT 94
[2018-03-21 13:10] VITALS: BP 115/65; BP 167/87; PULSE 74; RESP 18; O2SAT 64
[2018-03-21 13:15] VITALS: BP 157/85; BP 167/87; PULSE 74; RESP 18; O2SAT 95
[2018-03-21 13:20] VITALS: BP 157/85; BP 167/87; PULSE 74; RESP 18; TEMP 36.5; O2SAT 97
--- NOTE | 2018-03-21 13:22 | OP.PCM_ITS ---
Report of Operation Date of Procedure: 03/21/18 Pre-Operative Diagnosis: rectal bleeding, GERD, h/o bioliary stent placement at [facility] Post-Operative Diagnosis: rectal bleeding, GERD, h/o bioliary stent placement at [facility] - mild gastritis, mild distal esophagitis, biliary stent in place, lax rectal sphincter tone, normal colonoscopy Surgery/Procedure Performed:: egd with biopsy, colonoscopy team leader/research psychologist: None Type of Anesthesia:: MAC Anesthesiologist: Osman Pro - ASA3 Specimen's removed: gastric for H Pylori and path Description of Procedure: The patient was brought to the endoscopy suite. Sign in was performed verifying patient, site, planned procedure, critical nursing information, the patient was monitored with cardiac, pulse oximetric, and blood pressure monitoring devices. Monitored anesthetic care was provided for sedation. Following IV sedation and after the oropharynx was sprayed with Cetacaine spray , a video gastroscope was inserted in the oropharynx and advanced down the esophagus without difficulty. The scope was advanced through the stomach, through the pylorus through the duodenum to the proximal jejunum. The jejunum had a very small AVM with no signs of bleeding. Otherwise, the jejunum appeared unremarkable. As the scope was withdrawn. The duodenum appeared unremarkable. in the second portion of the duodenum, the stent from the biliary system was noted to be present at the ampulla. As the scope was withdrawn. The patient had mild gastritis. Biopsies were taken for H. pylori and pathology. As the scope was withdrawn. The GE junction appeared unremarkable. The distal esophagus demonstrated mild esophagitis. The remainder of esophagus was unremarkable. The patient was positioned for colonoscopy. A digital rectal exam was performed which revealed very lax rectal exam with a very weak sphincter The video colonoscope was inserted and advanced to the cecum as verified by the ileocecal valve, cecal base anatomic features and palpation. the cecum, ascending colon, hepatic flexure, transverse colon, splenic flexure, descending colon and rectosigmoid were unremarkable. The scope was retroflexed. The patient had internal hemorrhoids. The patient tolerated the procedure well and was brought to recovery in stable condition
[2018-03-21 13:50] VITALS: BP 167/87
== END 2018-03-21 14:00 | disposition home or self-care (01) ==
LOC: EN 10:17 → AC 10:35
PROVIDERS: Family Provider Student in an Organized Health Care Education/Training Program; PCP Student in an Organized Health Care Education/Training Program; Visit Provider Surgery
PROC: 0DJD8ZZ Inspection of Lower Intestinal Tract, Via Natural or Artificial Opening Endoscopic (ICD-10-PCS; CPT 45378; principal; 2018-03-21 11:55)
DX: K29.70 Gastritis, unspecified, without bleeding (principal); K21.0 Gastro-esophageal reflux disease with esophagitis; K62.89 Other specified diseases of anus and rectum; K64.8 Other hemorrhoids; K62.5 Hemorrhage of anus and rectum; D50.9 Iron deficiency anemia, unspecified; R19.4 Change in bowel habit; Z96.89 Presence of other specified functional implants; I12.9 Hypertensive chronic kidney disease with stage 1 through stage 4 chronic kidney disease, or unspecified chronic kidney disease; N18.3 Chronic kidney disease, stage 3 (moderate); E11.22 Type 2 diabetes mellitus with diabetic chronic kidney disease; I34.0 Nonrheumatic mitral (valve) insufficiency; I65.23 Occlusion and stenosis of bilateral carotid arteries; I25.10 Atherosclerotic heart disease of native coronary artery without angina pectoris; I69.354 Hemiplegia and hemiparesis following cerebral infarction affecting left non-dominant side; I69.398 Other sequelae of cerebral infarction; J44.9 Chronic obstructive pulmonary disease, unspecified; E78.5 Hyperlipidemia, unspecified; M79.7 Fibromyalgia; E66.9 Obesity, unspecified; Z68.29 Body mass index [BMI] 29.0-29.9, adult; G47.33 Obstructive sleep apnea (adult) (pediatric); M06.9 Rheumatoid arthritis, unspecified; Z86.718 Personal history of other venous thrombosis and embolism; Z95.1 Presence of aortocoronary bypass graft; Z95.0 Presence of cardiac pacemaker; Z79.4 Long term (current) use of insulin; Z79.01 Long term (current) use of anticoagulants; Z99.81 Dependence on supplemental oxygen; Z79.899 Other long term (current) drug therapy
CPT/HCPCS: 43239; 45378; 82962; 88305; 88342; J7120

== ENCOUNTER 2018-03-31 13:30 | Outpatient (RCR) | payer MEDICARE, SELFPAY ==
[2016-01-28 10:00] VITALS: BMI 30.7
[2018-03-12 01:56] VITALS: BP 145/74; PULSE 83; RESP 24; TEMP 37
[2018-03-17 14:49] VITALS: BP 127/59; PULSE 84; RESP 20; TEMP 37.3
--- NOTE | 2018-03-17 19:20 | PCM.WC.PN ---
(1) Pressure injury of right buttock, stage 2 Status: Acute Code(s): L89.312 - Pressure ulcer of right buttock, stage 2 (2) Pressure injury of deep tissue of left heel Status: Acute Code(s): L89.629 - Pressure ulcer of left heel, unspecified stage (3) CVA (cerebral vascular accident) Status: Acute Code(s): I63.9 - Cerebral infarction, unspecified Comment: ischemic, Right cerebellum and suspected brainstem Type of Wound Date of Service: 03/17/18 Chief Complaint: Nonhealing ulcer right buttock and sore on left heel History of Wound: 77 year old male presented to the wound center due to nonhealing ulcer to right buttock and sore in left heel. Past medical history as documented above. Patient's stated that patient developed an open area to the right buttock after his choleycystectomy surgery in December of 2017. stated after his rectal tube was removed she noticed the right buttock ulcer. Patient's also noted a couple weeks ago that he had a sore to the left heel that was purple and not opened. His stated she was applying barrier cream and cornstarch to bilateral buttocks and triple antibiotic ointment to the left heel. also stated that patient is incontinent of stool and urine. His stated that he does have chronic bilateral lower extremity edema which he does follow up with cardiology and nephrology. He does not wear compression stockings has not seen a fish peddler for couple of years. He was provided prescription for diabetic shoes which he has not obtained at this time. Patient spends the majority of his time at home in his recliner chair and has limited mobility d/t his chronic comorbidities. The patient otherwise denies any fever, chills, nausea, vomiting, shortness of breath, chest pain or pressure, palpitations, orthopnea, syncope or presyncopal episodes. Progress of Wound: Stage 2 pressure injury to buttock has healed, pt notes compliance with offloading to B/L heels but does note that his left heel is still purple. Denies any increase in pain or opening of the skin. Denies any fever, chills, increase in SOB, cp, syncope, or presyncopal episodes. - Physical Exam Vital Signs Temp Pulse Resp BP 99.1 F 84 20 H 127/59 H 03/17/18 14:49 03/17/18 14:49 03/17/18 14:49 03/17/18 14:49 General: Alert, Oriented x3, Cooperative, No apparent distress HEENT: Atraumatic Lungs: Clear to auscultation, Diminished Cardiovascular: Regular rate Abdomen: Bowel Sounds Present Extremities: No clubbing, No cyanosis, No edema Skin: Ulcer/ Wound - suspect deep tissue injury left heel, no erythema or signs of infection Neurological: Neuro grossly intact Psych/Mental Status: Normal Affect, Appropriate, Alert and oriented to time, place, person, mood and affect Debridement Note Post-Debridement Measurements/Treatment WC - Nurse 2 - General Ulcer CM Notes Start: 03/17/18 14:49 Freq: Status: Active Protocol: Activity Type Activity Date Activity User E-Sign Co-Sign Detail Recorded Client Recorded Date Recorded By Document 03/17/18 16:11 [id number] 03/17/18 16:33 03/17/18 16:11 Wound Center Nurse 2 #2 R Buttocks -Time 16:32 -Correct Patient Yes -Correct Side, Site, Position Yes -Correct Procedure Yes -Procedure Performed Yes -Post Debridement Size (cm) - Length 0 -Post Debridement Size (cm) - Width 0 -Post Debridement Size (cm) - Depth 0 -Total Square Cm 0 -Wound/Ulcer Outcome Healed- Epithelialized -Ulcer Cleansing Rinsed/ Irrigated with Saline -Foul Odor after Cleansing No -Bioengineered Tissue No -Bleeding Controlled with NA -Treatment Response Procedure Tolerated Well #1 L Heel -Time 16:33 -Correct Patient Yes -Correct Side, Site, Position Yes -Correct Procedure Yes -Procedure Performed Yes -Post Debridement Size (cm) - Length 0 -Post Debridement Size (cm) - Width 0 -Post Debridement Size (cm) - Depth 0 -Total Square Cm 0 -Wound/Ulcer Outcome Healed- Epithelialized -Ulcer Cleansing Rinsed/ Irrigated with Saline -Foul Odor after Cleansing No -Bioengineered Tissue No -Topical Lidocaine (%) 4 -Bleeding Controlled with Pressure -Treatment Response Procedure Tolerated Well Pain Scale: 0-10 Numeric Is Patient Pain Free? Yes No debridement was completed today Assessment/Plan Clinical Impression(s) from Imaging Studies Os Calcis X-ray 03/18/18 13:13 IMPRESSION: Vascular calcifications. No demonstrated definite destructive bony process. If osteomyelitis is suspected clinically, three-phase bone scan is recommended. Electronically Signed: Ramon Lopez MD at 14:17 EDT Tel , Service support , Foot X-Ray 03/18/18 13:45 IMPRESSION: Vascular calcifications. No demonstrated destructive bony process. If osteomyelitis is suspected clinically, three-phase bone scan is recommended. Electronically Signed: Ramon Lopez MD at 14:18 EDT Tel , Service support , Assessment: see above diagnoses Plan: The patient was seen and examined at the wound center today and was updated on the plan of care. The stage 2 pressure ulcer to right buttock is now healed, he continues with purplish discoloration to left heel. The patients wound care will consist of optifoam daily x 1 week to where right buttock ulcer was previously. Suspected deep tissue injury of left heel, will order donut cushion for better offloading and will obtain xray. Discussed importance of off loading mechanisms and interventions. Discussed importance of picking up diabetic shoes and scheduling appointment with fish peddler. Pre-albumin and ESR ordered previously and ESR elevated at 54 and prealbumin low at 14, discussed using 2-3 premier protein shakes per day. Vascular studies ordered and pending. Patient educated on the importance of diet on wound healing and instructed to increase protein and vitamin C intake. Patient verbalized understanding. Patient will follow up at wound healing center in one week or sooner if needed. This note was generated with [employer] software. It may contain incorrect words, spelling, and punctuation that were not noted in checking the note before signing. Code Visit Office Visits / Consults: [id number] OV L3 Est
--- NOTE | 2018-03-22 10:25 | PN.PCM_ITS ---
(1) Pressure injury of right buttock, stage 2 Status: Acute Code(s): L89.312 - Pressure ulcer of right buttock, stage 2 (2) Pressure injury of deep tissue of left heel Status: Acute Code(s): L89.629 - Pressure ulcer of left heel, unspecified stage (3) CVA (cerebral vascular accident) Status: Acute Code(s): I63.9 - Cerebral infarction, unspecified Comment: ischemic, Right cerebellum and suspected brainstem Type of Wound Date of Service: 03/17/18 Chief Complaint: Nonhealing ulcer right buttock and sore on left heel History of Wound: 77 year old male presented to the wound center due to nonhealing ulcer to right buttock and sore in left heel. Past medical history as documented above. Patient's stated that patient developed an open area to the right buttock after his choleycystectomy surgery in December of 2017. stated after his rectal tube was removed she noticed the right buttock ulcer. Patient's also noted a couple weeks ago that he had a sore to the left heel that was purple and not opened. His stated she was applying barrier cream and cornstarch to bilateral buttocks and triple antibiotic ointment to the left heel. also stated that patient is incontinent of stool and urine. His stated that he does have chronic bilateral lower extremity edema which he does follow up with cardiology and nephrology. He does not wear compression stockings has not seen a nanny/household manager for couple of years. He was provided prescription for diabetic shoes which he has not obtained at this time. Patient spends the majority of his time at home in his recliner chair and has limited mobility d/t his chronic comorbidities. The patient otherwise denies any fever, chills, nausea, vomiting, shortness of breath, chest pain or pressure, palpitations, orthopnea, syncope or presyncopal episodes. Progress of Wound: Stage 2 pressure injury to buttock has healed, pt notes compliance with offloading to B/L heels but does note that his left heel is still purple. Denies any increase in pain or opening of the skin. Denies any fever, chills, increase in SOB, cp, syncope, or presyncopal episodes. - Physical Exam Vital Signs Temp Pulse Resp BP 99.1 F 84 20 H 127/59 H 03/17/18 14:49 03/17/18 14:49 03/17/18 14:49 03/17/18 14:49 General: Alert, Oriented x3, Cooperative, No apparent distress HEENT: Atraumatic Lungs: Clear to auscultation, Diminished Cardiovascular: Regular rate Abdomen: Bowel Sounds Present Extremities: No clubbing, No cyanosis, No edema Skin: Ulcer/ Wound - suspect deep tissue injury left heel, no erythema or signs of infection Neurological: Neuro grossly intact Psych/Mental Status: Normal Affect, Appropriate, Alert and oriented to time, place, person, mood and affect Debridement Note Post-Debridement Measurements/Treatment WC - Nurse 2 - General Ulcer CM Notes Start: 03/17/18 14:49 Freq: Status: Active Protocol: Activity Type Activity Date Activity User E-Sign Co-Sign Detail Recorded Client Recorded Date Recorded By Document 03/17/18 16:11 [id number] 03/17/18 16:33 03/17/18 16:11 Wound Center Nurse 2 #2 R Buttocks -Time 16:32 -Correct Patient Yes -Correct Side, Site, Position Yes -Correct Procedure Yes -Procedure Performed Yes -Post Debridement Size (cm) - Length 0 -Post Debridement Size (cm) - Width 0 -Post Debridement Size (cm) - Depth 0 -Total Square Cm 0 -Wound/Ulcer Outcome Healed- Epithelialized -Ulcer Cleansing Rinsed/ Irrigated with Saline -Foul Odor after Cleansing No -Bioengineered Tissue No -Bleeding Controlled with NA -Treatment Response Procedure Tolerated Well #1 L Heel -Time 16:33 -Correct Patient Yes -Correct Side, Site, Position Yes -Correct Procedure Yes -Procedure Performed Yes -Post Debridement Size (cm) - Length 0 -Post Debridement Size (cm) - Width 0 -Post Debridement Size (cm) - Depth 0 -Total Square Cm 0 -Wound/Ulcer Outcome Healed- Epithelialized -Ulcer Cleansing Rinsed/ Irrigated with Saline -Foul Odor after Cleansing No -Bioengineered Tissue No -Topical Lidocaine (%) 4 -Bleeding Controlled with Pressure -Treatment Response Procedure Tolerated Well Pain Scale: 0-10 Numeric Is Patient Pain Free? Yes No debridement was completed today Assessment/Plan Clinical Impression(s) from Imaging Studies Os Calcis X-ray 03/18/18 13:13 IMPRESSION: Vascular calcifications. No demonstrated definite destructive bony process. If osteomyelitis is suspected clinically, three-phase bone scan is recommended. Electronically Signed: Ramon Lopez MD at 14:17 EDT Tel , Service support , Foot X-Ray 03/18/18 13:45 IMPRESSION: Vascular calcifications. No demonstrated destructive bony process. If osteomyelitis is suspected clinically, three-phase bone scan is recommended. Electronically Signed: Ramon Lopez MD at 14:18 EDT Tel , Service support , Assessment: see above diagnoses Plan: The patient was seen and examined at the wound center today and was updated on the plan of care. The stage 2 pressure ulcer to right buttock is now healed, he continues with purplish discoloration to left heel. The patients wound care will consist of optifoam daily x 1 week to where right buttock ulcer was previously. Suspected deep tissue injury of left heel, will order donut cushion for better offloading and will obtain xray. Discussed importance of off loading mechanisms and interventions. Discussed importance of picking up diabetic shoes and scheduling appointment with nanny/household manager. Pre-albumin and ESR ordered previously and ESR elevated at 54 and prealbumin low at 14, discussed using 2-3 premier protein shakes per day. Vascular studies ordered and pending. Patient educated on the importance of diet on wound healing and instructed to increase protein and vitamin C intake. Patient verbalized understanding. Patient will follow up at wound healing center in one week or sooner if needed. This note was generated with [employer] software. It may contain incorrect words, spelling, and punctuation that were not noted in checking the note before signing. Code Visit Office Visits / Consults: [id number] OV L3 Est
[2018-03-31 13:32] VITALS: BP 108/53; PULSE 71; RESP 18; TEMP 36.9
--- NOTE | 2018-03-31 19:54 | PCM.WC.PN ---
(1) Pressure injury of deep tissue of left heel Status: Acute Current Visit: Yes Code(s): L89.629 - Pressure ulcer of left heel, unspecified stage (2) Pressure injury of right buttock, stage 2 Status: Resolved Current Visit: No Code(s): L89.312 - Pressure ulcer of right buttock, stage 2 (3) CVA (cerebral vascular accident) Status: Acute Current Visit: No Code(s): I63.9 - Cerebral infarction, unspecified Comment: ischemic, Right cerebellum and suspected brainstem Type of Wound Date of Service: 03/31/18 Chief Complaint: Nonhealing ulcer right buttock and sore on left heel History of Wound: 77 year old male presented to the wound center due to nonhealing ulcer to right buttock and sore in left heel. Past medical history as documented above. Patient's stated that patient developed an open area to the right buttock after his choleycystectomy surgery in December of 2017. stated after his rectal tube was removed she noticed the right buttock ulcer. Patient's also noted a couple weeks ago that he had a sore to the left heel that was purple and not opened. His stated she was applying barrier cream and cornstarch to bilateral buttocks and triple antibiotic ointment to the left heel. also stated that patient is incontinent of stool and urine. His stated that he does have chronic bilateral lower extremity edema which he does follow up with cardiology and nephrology. He does not wear compression stockings has not seen a hardening machine operator for couple of years. He was provided prescription for diabetic shoes which he has not obtained at this time. Patient spends the majority of his time at home in his recliner chair and has limited mobility d/t his chronic comorbidities. The patient otherwise denies any fever, chills, nausea, vomiting, shortness of breath, chest pain or pressure, palpitations, orthopnea, syncope or presyncopal episodes. Progress of Wound: Stage 2 pressure injury to buttock has healed, pt notes compliance with offloading to B/L heels but does note that his left heel is still bownish discolored. States that he could not afford the heel donut, but has been floating his heels at night. Still has not made an appt with podiatry as instructed to multiple times prior. Denies any increase in pain or opening of the skin. Denies any fever, chills, increase in SOB, cp, syncope, or presyncopal episodes. Xray was reviewed prior and showed calcaneal spur. - Physical Exam Vital Signs Temp Pulse Resp BP 98.4 F 71 18 108/53 L 03/31/18 13:32 03/31/18 13:32 03/31/18 13:32 03/31/18 13:32 General: Alert, Oriented x3, Cooperative, No apparent distress HEENT: PERRLA, EOMI Lungs: Clear to auscultation, Normal air movement Cardiovascular: Regular rate, Regular Rhythm, Normal S1, Normal S2 Extremities: Diminished Peripheral Pulses, Edema - generalized BLLE edema Skin: Ulcer/ Wound - suspect deep tissue injury left heel, brownish/purplish discoloration. No drainage Wound Measurements and Assessment WC - Nurse 1 - General Ulcer Measurement Start: 03/17/18 14:49 Freq: Status: Active Protocol: Activity Type Activity Date Activity User E-Sign Co-Sign Detail Recorded Client Recorded Date Recorded By Document 03/31/18 13:32 RB [id number] 03/31/18 13:44 RB 03/31/18 13:32 Wound Center Nurse 1 [Ulcer Assessment] #1 L Heel -Combined with other wound No -Current Size (cm) - Length 1.8 -Current Size (cm) - Width 2.1 -Current Size (cm) - Depth 0.1 -Total Square Cm 3.78 -Photo Taken No -Tunneling No -Undermining/Tunneling No -Circular Undermining No -Exudate Amt Small (1-33%) -Exudate Type Serosanguineous -Wound Margin Distinct, Outline Attached -Granulation Amt Small (1-33%) -Granulation Quality [place] -Necrosis Amt Large (67-100%) -Necrotic Tissue Type Adherent Slough -Structure Exposed N/A -Texture (Terri-wound Skin Appearance) Assessed -Moisture (Terri-wound Skin Appearance Assessed ) -Color (Terri-wound Skin Appearance) Assessed -Temperature (Terri-wound Skin No Abnormality Appearance) (Pt Warm) -Tenderness on Palpation (Terri-wound No Skin Appearance) -Ulcer Cleansing Rinsed/ Irrigated with Saline -Foul Odor after Cleansing No -Anesthetic Used 4% Lidocaine Solution WC - Nurse 2 - General Ulcer CM Notes Start: 03/17/18 14:49 Freq: Status: Active Protocol: Activity Type Activity Date Activity User E-Sign Co-Sign Detail Recorded Client Recorded Date Recorded By Document 03/31/18 14:24 [id number] 03/31/18 14:27 03/31/18 14:24 Wound Center Nurse 2 [Procedure/Treatment] -Time 14:24 -Correct Patient No -Correct Side, Site, Position No -Correct Procedure No -Procedure Performed No [See Physician Procedure note for Specifics] Pain Scale: 0-10 Numeric [Pain] -Is Patient Pain Free? Yes Neurological: Neuro grossly intact Psych/Mental Status: Normal Affect, Appropriate, Alert and oriented to time, place, person, mood and affect Debridement Note Post-Debridement Measurements/Treatment WC - Nurse 2 - General Ulcer CM Notes Start: 03/17/18 14:49 Freq: Status: Active Protocol: Activity Type Activity Date Activity User E-Sign Co-Sign Detail Recorded Client Recorded Date Recorded By Document 03/17/18 16:11 [id number] 03/17/18 16:33 Document 03/31/18 14:24 [id number] 03/31/18 14:27 03/17/18 03/31/18 16:11 14:24 Wound Center Nurse 2 #2 R Buttocks -Time 16:32 -Correct Patient Yes -Correct Side, Site, Position Yes -Correct Procedure Yes -Procedure Performed Yes -Post Debridement Size (cm) - Length 0 -Post Debridement Size (cm) - Width 0 -Post Debridement Size (cm) - Depth 0 -Total Square Cm 0 -Wound/Ulcer Outcome Healed- Epithelialized -Ulcer Cleansing Rinsed/ Irrigated with Saline -Foul Odor after Cleansing No -Bioengineered Tissue No -Bleeding Controlled with NA -Treatment Response Procedure Tolerated Well #1 L Heel -Time 16:33 14:24 -Correct Patient Yes No -Correct Side, Site, Position Yes No -Correct Procedure Yes No -Procedure Performed Yes No -Post Debridement Size (cm) - Length 0 -Post Debridement Size (cm) - Width 0 -Post Debridement Size (cm) - Depth 0 -Total Square Cm 0 -Wound/Ulcer Outcome Healed- Epithelialized -Ulcer Cleansing Rinsed/ Irrigated with Saline -Foul Odor after Cleansing No -Bioengineered Tissue No -Topical Lidocaine (%) 4 -Bleeding Controlled with Pressure -Treatment Response Procedure Tolerated Well Pain Scale: 0-10 Numeric Is Patient Pain Free? Yes Yes No debridement was completed today Assessment/Plan Clinical Impression(s) from Imaging Studies Os Calcis X-ray 03/18/18 13:13 IMPRESSION: Vascular calcifications. No demonstrated definite destructive bony process. If osteomyelitis is suspected clinically, three-phase bone scan is recommended. Electronically Signed: Ramon Lopez MD at 14:17 EDT Tel , Service support , Foot X-Ray 03/18/18 13:45 IMPRESSION: Vascular calcifications. No demonstrated destructive bony process. If osteomyelitis is suspected clinically, three-phase bone scan is recommended. Electronically Signed: Ramon Lopez MD at 14:18 EDT Tel , Service support , Active Problems (Last Reviewed 03/09/18 @ 10:38 by Deepti Sharma NP-[place]) Pressure injury of deep tissue of left heel (Acute) Assessment: see above diagnoses Plan: The patient was seen and examined at the wound center today and was updated on the plan of care. The stage 2 pressure ulcer to right buttock is now healed, he continues with purplish/brown discoloration to left heel. The patients wound care will consist Suspected deep tissue injury of left heel, encouraged to picker machine operator donut cushion for better offloading and xray reviewed which showed calcaneal spur. Discussed importance of off loading mechanisms and interventions and risks. May use betadine daily to site to keep dry. Discussed importance of picking up diabetic shoes and scheduling appointment with hardening machine operator. Pre-albumin and ESR ordered previously and ESR elevated at 54 and prealbumin low at 14, discussed using 2-3 premier protein shakes per day. Vascular studies ordered and pending. Patient educated on the importance of diet on wound healing and instructed to increase protein and vitamin C intake. Patient verbalized understanding. Patient will follow up at wound healing center in one week or sooner if needed. Pt wishes to see hardening machine operator at wound center rather than seeing in office. This note was generated with [employer] software. It may contain incorrect words, spelling, and punctuation that were not noted in checking the note before signing. Code Visit Office Visits / Consults: [id number] OV L2 Est
--- NOTE | 2018-04-01 10:00 | PN.PCM_ITS ---
(1) Pressure injury of deep tissue of left heel Status: Acute Current Visit: Yes Code(s): L89.629 - Pressure ulcer of left heel, unspecified stage (2) Pressure injury of right buttock, stage 2 Status: Resolved Current Visit: No Code(s): L89.312 - Pressure ulcer of right buttock, stage 2 (3) CVA (cerebral vascular accident) Status: Acute Current Visit: No Code(s): I63.9 - Cerebral infarction, unspecified Comment: ischemic, Right cerebellum and suspected brainstem Type of Wound Date of Service: 03/31/18 Chief Complaint: Nonhealing ulcer right buttock and sore on left heel History of Wound: 77 year old male presented to the wound center due to nonhealing ulcer to right buttock and sore in left heel. Past medical history as documented above. Patient's stated that patient developed an open area to the right buttock after his choleycystectomy surgery in December of 2017. stated after his rectal tube was removed she noticed the right buttock ulcer. Patient's also noted a couple weeks ago that he had a sore to the left heel that was purple and not opened. His stated she was applying barrier cream and cornstarch to bilateral buttocks and triple antibiotic ointment to the left heel. also stated that patient is incontinent of stool and urine. His stated that he does have chronic bilateral lower extremity edema which he does follow up with cardiology and nephrology. He does not wear compression stockings has not seen a wireless team member for couple of years. He was provided prescription for diabetic shoes which he has not obtained at this time. Patient spends the majority of his time at home in his recliner chair and has limited mobility d/t his chronic comorbidities. The patient otherwise denies any fever, chills, nausea, vomiting, shortness of breath, chest pain or pressure, palpitations, orthopnea, syncope or presyncopal episodes. Progress of Wound: Stage 2 pressure injury to buttock has healed, pt notes compliance with offloading to B/L heels but does note that his left heel is still bownish discolored. States that he could not afford the heel donut, but has been floating his heels at night. Still has not made an appt with podiatry as instructed to multiple times prior. Denies any increase in pain or opening of the skin. Denies any fever, chills, increase in SOB, cp, syncope, or presyncopal episodes. Xray was reviewed prior and showed calcaneal spur. - Physical Exam Vital Signs Temp Pulse Resp BP 98.4 F 71 18 108/53 L 03/31/18 13:32 03/31/18 13:32 03/31/18 13:32 03/31/18 13:32 General: Alert, Oriented x3, Cooperative, No apparent distress HEENT: PERRLA, EOMI Lungs: Clear to auscultation, Normal air movement Cardiovascular: Regular rate, Regular Rhythm, Normal S1, Normal S2 Extremities: Diminished Peripheral Pulses, Edema - generalized BLLE edema Skin: Ulcer/ Wound - suspect deep tissue injury left heel, brownish/purplish discoloration. No drainage Wound Measurements and Assessment WC - Nurse 1 - General Ulcer Measurement Start: 03/17/18 14:49 Freq: Status: Active Protocol: Activity Type Activity Date Activity User E-Sign Co-Sign Detail Recorded Client Recorded Date Recorded By Document 03/31/18 13:32 RB [id number] 03/31/18 13:44 RB 03/31/18 13:32 Wound Center Nurse 1 [Ulcer Assessment] #1 L Heel -Combined with other wound No -Current Size (cm) - Length 1.8 -Current Size (cm) - Width 2.1 -Current Size (cm) - Depth 0.1 -Total Square Cm 3.78 -Photo Taken No -Tunneling No -Undermining/Tunneling No -Circular Undermining No -Exudate Amt Small (1-33%) -Exudate Type Serosanguineous -Wound Margin Distinct, Outline Attached -Granulation Amt Small (1-33%) -Granulation Quality [place] -Necrosis Amt Large (67-100%) -Necrotic Tissue Type Adherent Slough -Structure Exposed N/A -Texture (Terri-wound Skin Appearance) Assessed -Moisture (Terri-wound Skin Appearance Assessed ) -Color (Terri-wound Skin Appearance) Assessed -Temperature (Terri-wound Skin No Abnormality Appearance) (Pt Warm) -Tenderness on Palpation (Terri-wound No Skin Appearance) -Ulcer Cleansing Rinsed/ Irrigated with Saline -Foul Odor after Cleansing No -Anesthetic Used 4% Lidocaine Solution WC - Nurse 2 - General Ulcer CM Notes Start: 03/17/18 14:49 Freq: Status: Active Protocol: Activity Type Activity Date Activity User E-Sign Co-Sign Detail Recorded Client Recorded Date Recorded By Document 03/31/18 14:24 [id number] 03/31/18 14:27 03/31/18 14:24 Wound Center Nurse 2 [Procedure/Treatment] -Time 14:24 -Correct Patient No -Correct Side, Site, Position No -Correct Procedure No -Procedure Performed No [See Physician Procedure note for Specifics] Pain Scale: 0-10 Numeric [Pain] -Is Patient Pain Free? Yes Neurological: Neuro grossly intact Psych/Mental Status: Normal Affect, Appropriate, Alert and oriented to time, place, person, mood and affect Debridement Note Post-Debridement Measurements/Treatment WC - Nurse 2 - General Ulcer CM Notes Start: 03/17/18 14:49 Freq: Status: Active Protocol: Activity Type Activity Date Activity User E-Sign Co-Sign Detail Recorded Client Recorded Date Recorded By Document 03/17/18 16:11 [id number] 03/17/18 16:33 Document 03/31/18 14:24 [id number] 03/31/18 14:27 03/17/18 03/31/18 16:11 14:24 Wound Center Nurse 2 #2 R Buttocks -Time 16:32 -Correct Patient Yes -Correct Side, Site, Position Yes -Correct Procedure Yes -Procedure Performed Yes -Post Debridement Size (cm) - Length 0 -Post Debridement Size (cm) - Width 0 -Post Debridement Size (cm) - Depth 0 -Total Square Cm 0 -Wound/Ulcer Outcome Healed- Epithelialized -Ulcer Cleansing Rinsed/ Irrigated with Saline -Foul Odor after Cleansing No -Bioengineered Tissue No -Bleeding Controlled with NA -Treatment Response Procedure Tolerated Well #1 L Heel -Time 16:33 14:24 -Correct Patient Yes No -Correct Side, Site, Position Yes No -Correct Procedure Yes No -Procedure Performed Yes No -Post Debridement Size (cm) - Length 0 -Post Debridement Size (cm) - Width 0 -Post Debridement Size (cm) - Depth 0 -Total Square Cm 0 -Wound/Ulcer Outcome Healed- Epithelialized -Ulcer Cleansing Rinsed/ Irrigated with Saline -Foul Odor after Cleansing No -Bioengineered Tissue No -Topical Lidocaine (%) 4 -Bleeding Controlled with Pressure -Treatment Response Procedure Tolerated Well Pain Scale: 0-10 Numeric Is Patient Pain Free? Yes Yes No debridement was completed today Assessment/Plan Clinical Impression(s) from Imaging Studies Os Calcis X-ray 03/18/18 13:13 IMPRESSION: Vascular calcifications. No demonstrated definite destructive bony process. If osteomyelitis is suspected clinically, three-phase bone scan is recommended. Electronically Signed: Ramon Lopez MD at 14:17 EDT Tel , Service support , Foot X-Ray 03/18/18 13:45 IMPRESSION: Vascular calcifications. No demonstrated destructive bony process. If osteomyelitis is suspected clinically, three-phase bone scan is recommended. Electronically Signed: Ramon Lopez MD at 14:18 EDT Tel , Service support , Active Problems (Last Reviewed 03/09/18 @ 10:38 by Deepti Sharma NP-[place]) Pressure injury of deep tissue of left heel (Acute) Assessment: see above diagnoses Plan: The patient was seen and examined at the wound center today and was updated on the plan of care. The stage 2 pressure ulcer to right buttock is now healed, he continues with purplish/brown discoloration to left heel. The patients wound care will consist Suspected deep tissue injury of left heel, encouraged to picker and sorter load and unload donut cushion for better offloading and xray reviewed which showed calcaneal spur. Discussed importance of off loading mechanisms and interventions and risks. May use betadine daily to site to keep dry. Discussed importance of picking up diabetic shoes and scheduling appointment with wireless team member. Pre-albumin and ESR ordered previously and ESR elevated at 54 and prealbumin low at 14, discussed using 2-3 premier protein shakes per day. Vascular studies ordered and pending. Patient educated on the importance of diet on wound healing and instructed to increase protein and vitamin C intake. Patient verbalized understanding. Patient will follow up at wound healing center in one week or sooner if needed. Pt wishes to see wireless team member at wound center rather than seeing in office. This note was generated with [employer] software. It may contain incorrect words, spelling, and punctuation that were not noted in checking the note before signing. Code Visit Office Visits / Consults: [id number] OV L2 Est
== END 2018-04-10 23:59 ==
LOC: WC 13:30
PROVIDERS: Family Provider Student in an Organized Health Care Education/Training Program; PCP Student in an Organized Health Care Education/Training Program; Visit Provider Nurse Practitioner Family
DX: L89.620 Pressure ulcer of left heel, unstageable (principal); Z86.73 Personal history of transient ischemic attack (TIA), and cerebral infarction without residual deficits; R15.9 Full incontinence of feces; R60.0 Localized edema; M77.30 Calcaneal spur, unspecified foot
CPT/HCPCS: 73630; 73650; 99212; 99213; G0463

== ENCOUNTER 2018-04-26 09:43 | Day surgery (SDC) | payer MEDICARE, SELFPAY ==
[2016-01-28 10:00] VITALS: BMI 30.7
[2018-04-26] VITALS (7 sets, daily range): BP systolic 113–153; BP diastolic 60–80; PULSE 60–68; RESP 16–18; TEMP 36.2–36.6; O2SAT 95–100; BMI 30.6
--- NOTE | 2018-04-26 10:03 | EKG12_ITS ---
Test Reason : PREOP Blood Pressure : / mmHG Vent. Rate : 068 BPM Atrial Rate : 068 BPM P-R Int : 248 ms QRS Dur : 156 ms QT Int : 454 ms P-R-T Axes : -27 -38 047 degrees QTc Int : 482 ms Atrial-paced rhythm with prolonged AV conduction Left axis deviation Right bundle branch block Abnormal ECG Confirmed by CHELA CHOU, MURIEL ([id number]), editor producer JACKIE ARMSTRONG ([id number]) on 05/02/2018 11:11:51 AM Referred By: Brandan Monreal Confirmed By:MURIEL YORK MD
[2018-04-26 10:31] LABS: Bedside Glucose 116 mg/dL (70-110)
--- NOTE | 2018-04-26 10:50 | RAD_ITS ---
STUDY: ERCP. REASON FOR EXAM: Male, 77 years old. Stent removal. FLUOROSCOPY TIME (if supplied): (6:45) minutes/seconds TECHNIQUE: Intraoperative imaging provided for stent removal. COMPARISON: None. FINDINGS: A guidewire is seen within the common bile duct. RAD/ERCP Biliary/Pancreas IMPRESSION: Imaging provided for stent removal. Electronically Signed: Apolinar Bush MD at 15:45 EDT Tel [phone], Service support ,
--- NOTE | 2018-04-26 12:05 | OP.ENDO_ITS ---
Patient Name: Reynold Biswas Procedure Date: 04/26/2018 10:51 AM Date of : 1940 Age: 77 Procedure: ERCP Indications: Common bile duct stone(s), Biliary stent removal Providers: Brandan Monreal MD Referring MD: Mateus Renioso MD Medicines: General Anesthesia Patient Profile: This is a 77 year old male. He had ERCP with stent placement for retained stones and presents for stent and stone removal. Complications: No immediate complications. Estimated blood loss: Minimal. Procedure: Pre-Anesthesia Assessment: - Prior to the procedure, a History and Physical was performed, and patient medications and allergies were reviewed. The patient's tolerance of previous anesthesia was also reviewed. The risks and benefits of the procedure and the sedation options and risks were discussed with the patient. All questions were answered, and informed consent was obtained. Prior Anticoagulants: The patient has taken Plavix (clopidogrel), last dose was 5 days prior to procedure. After reviewing the risks and benefits, the patient was deemed in satisfactory condition to undergo the procedure. After obtaining informed consent, the scope was passed under direct vision. Throughout the procedure, the patient's blood pressure, pulse, and oxygen saturations were monitored continuously. The duodenoscope was introduced through the mouth, and advanced to the duodenum and used to inject contrast into the bile duct. The ERCP was accomplished without difficulty. The patient tolerated the procedure well. Scope In: 11:17:05 AM Scope Out: 11:40:03 AM Total Procedure Duration Time 0 hours 22 minutes 58 seconds Findings: One stent was removed from the biliary tree using a snare. A 0.035 inch x 260 cm straight Dreamwire was passed into the biliary tree. The sphincterotome was passed over the guidewire and the bile duct was then deeply cannulated. Contrast was injected. I personally interpreted the bile duct images. Ductal flow of contrast was adequate. Contrast extended to the hepatic ducts. The common bile duct contained two stones mm. The common bile duct was diffusely dilated. The biliary tree was swept with a basket starting at the bifurcation. Two stones were removed. No stones remained. The biliary tree was swept with a 12 mm balloon starting at the bifurcation. Sludge was swept from the duct. Debris was swept from the duct. The endoscope was withdrawn from the patient. Impression: - The common bile duct was dilated. - Choledocholithiasis was found. Complete removal was accomplished by sweeping. - One stent was removed from the biliary tree. - The biliary tree was swept. - The biliary tree was swept and sludge and debris were found. Recommendation: - Discharge patient to home. - Continue present medications. - Resume Plavix (clopidogrel) at prior dose tomorrow. - Return to my office in 2-3 weeks, call for appt. [phone]. Procedure Code(s): --- Professional --- 39914, Endoscopic retrograde cholangiopancreatography (ERCP); with removal of foreign body(s) or stent(s) from biliary/pancreatic duct(s) 91202, Endoscopic retrograde cholangiopancreatography (ERCP); with removal of calculi/debris from biliary/pancreatic duct(s) Diagnosis Code(s): --- Professional --- K80.50, Calculus of bile duct without cholangitis or cholecystitis without obstruction Z46.59, Encounter for fitting and adjustment of other gastrointestinal appliance and device K83.8, Other specified diseases of biliary tract CPT copyright 2017 [employer]. All rights reserved. The codes documented in this report are preliminary and upon transitions manager rn review may be revised to meet current compliance requirements. Brandan Monreal MD 04/26/2018 12:04:57 PM This report has been signed electronically. Number of Addenda: 0 Note Initiated On: 04/26/2018 10:51 AM
[2018-04-26 12:35] LABS: Bedside Glucose 108 mg/dL (70-110)
== END 2018-04-26 13:41 | disposition home or self-care (01) ==
LOC: EN 09:44 → AC 10:07
PROVIDERS: Family Provider Student in an Organized Health Care Education/Training Program; PCP Student in an Organized Health Care Education/Training Program; Referring Provider Surgery; Visit Provider Surgery
PROC: (CPT 43260; principal; 2018-04-26 10:30)
DX: K80.50 Calculus of bile duct without cholangitis or cholecystitis without obstruction (principal); K83.8 Other specified diseases of biliary tract; I12.9 Hypertensive chronic kidney disease with stage 1 through stage 4 chronic kidney disease, or unspecified chronic kidney disease; E11.22 Type 2 diabetes mellitus with diabetic chronic kidney disease; N18.3 Chronic kidney disease, stage 3 (moderate); N17.9 Acute kidney failure, unspecified; D63.1 Anemia in chronic kidney disease; I25.10 Atherosclerotic heart disease of native coronary artery without angina pectoris; I69.322 Dysarthria following cerebral infarction; I65.29 Occlusion and stenosis of unspecified carotid artery; I27.20 Pulmonary hypertension, unspecified; I25.2 Old myocardial infarction; J44.9 Chronic obstructive pulmonary disease, unspecified; E78.5 Hyperlipidemia, unspecified; G47.33 Obstructive sleep apnea (adult) (pediatric); E66.9 Obesity, unspecified; Z68.30 Body mass index [BMI] 30.0-30.9, adult; Z95.0 Presence of cardiac pacemaker; Z95.1 Presence of aortocoronary bypass graft; Z79.01 Long term (current) use of anticoagulants; Z79.4 Long term (current) use of insulin; Z99.81 Dependence on supplemental oxygen; Z79.899 Other long term (current) drug therapy
CPT/HCPCS: 00732; 43264; 43275; 74330; 76000; 82962; 93005; J7120

== ENCOUNTER 2018-05-11 14:30 | Outpatient (RCR) | payer MEDICARE, SELFPAY ==
[2016-01-28 10:00] VITALS: BMI 30.7
[2018-04-11 01:28] VITALS: BP 108/53; PULSE 71; RESP 18; TEMP 36.9
[2018-04-13 13:57] VITALS: BP 125/64; PULSE 70; RESP 16; TEMP 37.3
--- NOTE | 2018-04-13 17:04 | PCM.WC.PN ---
(1) Chronic ulcer of left foot with fat layer exposed Status: Chronic Code(s): L97.522 - Non-pressure chronic ulcer of other part of left foot with fat layer exposed (2) Peripheral vascular disease Status: Chronic Code(s): I73.9 - Peripheral vascular disease, unspecified (3) Malnutrition Status: Chronic Code(s): E46 - Unspecified protein-calorie malnutrition (4) Delayed wound healing Status: Chronic Code(s): T14.8XXD - Other injury of unspecified body region, subsequent encounter Type of Wound Date of Service: 04/13/18 Chief Complaint: left heel ulcer History of Wound: 77 year old male presented to the wound center due to nonhealing ulcer to left heel. He reports his other ulcer has resolved. He denies fever, chills, nausea, vomiting. He offloads by hanging his foot over a pillow which does not work most nights due to movement. He wears a closed shoe at this time as well. Progress of Wound: stable - Physical Exam Vital Signs Temp Pulse Resp BP 99.1 F 70 16 125/64 H 04/13/18 13:57 04/13/18 13:57 04/13/18 13:57 04/13/18 13:57 General: Alert, Oriented x3, Cooperative HEENT: Atraumatic Extremities: No cyanosis, Capillary Refill Less than 3 Seconds, No Calf Tenderness - negative sampson and chauhan signs bilateral, Diminished Peripheral Pulses, Edema - mild bilateral lower extremity Skin: Ulcer/ Wound - no purulence, no erythema, no odor, no infection. no exposed bone. mild eschar noted in wound bed with granulation and fibrous tissue, - - peripheral skin is hairless and atrophic Wound Measurements and Assessment WC - Nurse 1 - General Ulcer Measurement Start: 04/13/18 13:57 Freq: Status: Active Protocol: Activity Type Activity Date Activity User E-Sign Co-Sign Detail Recorded Client Recorded Date Recorded By Document 04/13/18 13:57 CA [id number] 04/13/18 14:09 CA 04/13/18 13:57 Wound Center Nurse 1 [Ulcer Assessment] #1 L Heel -Combined with other wound No -Current Size (cm) - Length 1 -Current Size (cm) - Width 1.5 -Current Size (cm) - Depth 0.1 -Total Square Cm 1.5 -Date of Last Picture (Recall this 04/13/18 field) -Photo Taken Yes -Epithelialization None Present -Tunneling No -Undermining/Tunneling No -Circular Undermining No -Exudate Amt Medium (34-66%) -Exudate Type Serosanguineous -Wound Margin Distinct, Outline Attached -Granulation Amt None Present (0 %) -Slough/Fibrin Yes -Necrosis Amt Large (67-100%) -Necrotic Tissue Type Eschar -Texture (Terri-wound Skin Appearance) Callus Scarring -Moisture (Terri-wound Skin Appearance Dry/Scaly ) -Color (Terri-wound Skin Appearance) Assessed -Temperature (Terri-wound Skin No Abnormality Appearance) (Pt Warm) -Tenderness on Palpation (Terri-wound Yes Skin Appearance) -Ulcer Cleansing Rinsed/ Irrigated with Saline -Foul Odor after Cleansing No -Anesthetic Used 5% Lidocaine Gel [Edema Assessment] -Lower Limb Edema Present Yes -Left Calf (cm) 36.5 -Left Ankle (cm) 25 WC - Nurse 2 - General Ulcer CM Notes Start: 04/13/18 13:57 Freq: Status: Active Protocol: Activity Type Activity Date Activity User E-Sign Co-Sign Detail Recorded Client Recorded Date Recorded By Document 04/13/18 14:58 [id number] 04/13/18 14:59 04/13/18 14:58 Wound Center Nurse 2 [Procedure/Treatment] #1 L Heel -Time 14:58 -Correct Patient Yes -Correct Side, Site, Position Yes -Correct Procedure Yes -Procedure Performed Yes -Type of Procedure Debridement -Clinical Debridement Subcutaneous -Post Debridement Size (cm) - Length 0.9 -Post Debridement Size (cm) - Width 1 -Post Debridement Size (cm) - Depth 0.2 -Total Square Cm 0.9 -Wound/Ulcer Outcome Not Healed -Ulcer Cleansing Rinsed/ Irrigated with Saline -Foul Odor after Cleansing No -Bioengineered Tissue No -Bleeding Controlled with Pressure -Treatment Response Procedure Tolerated Well [See Physician Procedure note for Specifics] Pain Scale: 0-10 Numeric [Pain] -Is Patient Pain Free? Yes Musculoskeletal: No Tenderness to Palpation of Joints or Extremities, Muscle Wasting, - - compartments of lower extremity are soft Neurological: Sensory exam intact to light touch and pain Psych/Mental Status: Normal Affect, Appropriate Debridement Note Post-Debridement Measurements/Treatment WC - Nurse 2 - General Ulcer CM Notes Start: 04/13/18 13:57 Freq: Status: Active Protocol: Activity Type Activity Date Activity User E-Sign Co-Sign Detail Recorded Client Recorded Date Recorded By Document 04/13/18 14:58 [id number] 04/13/18 14:59 MILENA 04/13/18 14:58 Wound Center Nurse 2 #1 L Heel -Time 14:58 -Correct Patient Yes -Correct Side, Site, Position Yes -Correct Procedure Yes -Procedure Performed Yes -Type of Procedure Debridement -Clinical Debridement Subcutaneous -Post Debridement Size (cm) - Length 0.9 -Post Debridement Size (cm) - Width 1 -Post Debridement Size (cm) - Depth 0.2 -Total Square Cm 0.9 -Wound/Ulcer Outcome Not Healed -Ulcer Cleansing Rinsed/ Irrigated with Saline -Foul Odor after Cleansing No -Bioengineered Tissue No -Bleeding Controlled with Pressure -Treatment Response Procedure Tolerated Well Pain Scale: 0-10 Numeric Is Patient Pain Free? Yes Wound debrided: posterior heel Laterality: Left Type of Debridement: Excisional debridement Anesthesia Used: 4% Lidocaine Solution Depth: in the subcutaneous layer Percentage of wound debrided: 100 Instrument Used: #15 blade Tissue Removed: fibrous, devitalized subcutaneous, biofilm, slough, eschar Severity: Fat Layer Exposed Amount of bleeding with debridement: Mild Bleeding Controlled with: Pressure Patient tolerated procedure well Assessment/Plan Assessment: ulcer heel with fat layer exposed. peripheral vascular disease. delayed healing. malnutrition. other comorbidities Plan: The patient was seen and examined at the wound center today and was updated on the plan of care. Debridement was performed as noted in the clinical panel. To obtain donut offloading pillow; a new prescription was provided todya. The xray of the heel/foot was reviewed which showed calcaneal spur, no gas, no osseous destruction or acute fractures/discloations. Discussed importance of off loading mechanisms and interventions and risks. to change dressing with hydrogel with collagen. Planned debridements at follow up are scheduled and advanced product application will also be considered once the eschar is better resolved. Pre-albumin and ESR ordered previously and ESR elevated at 54 and prealbumin low at 14, discussed using 2-3 premier protein shakes per day. additional baseline labs were ordered; cbc, cmp. Vascular studies ordered and pending. Surgical shoe was fitted and dispensed and offloading pads were applied to eliminate pressure to the posterior heel ulcer; to avoid wearing closed shoes that press on this site. He is not amendable to cut the back of the shoe off. Patient educated on the importance of diet on wound healing and instructed to increase protein and vitamin C intake. Patient verbalized understanding. Patient will follow up at wound healing center in one week or sooner if needed. I answered his questions today.
[2018-04-20 14:55] VITALS: BP 126/58; PULSE 85; RESP 16; TEMP 37.4
--- NOTE | 2018-04-20 15:15 | PCM.WC.PN ---
(1) Chronic ulcer of left foot with fat layer exposed Status: Chronic Current Visit: Yes Code(s): L97.522 - Non-pressure chronic ulcer of other part of left foot with fat layer exposed (2) Peripheral vascular disease Status: Suspected Current Visit: Yes Code(s): I73.9 - Peripheral vascular disease, unspecified (3) Malnutrition Status: Chronic Current Visit: Yes Code(s): E46 - Unspecified protein-calorie malnutrition (4) Delayed wound healing Status: Chronic Current Visit: Yes Code(s): T14.8XXD - Other injury of unspecified body region, subsequent encounter Type of Wound Date of Service: 04/20/18 Chief Complaint: left heel ulcer History of Wound: 77 year old male presented to the wound center due to nonhealing ulcer to left heel. He reports his other ulcer has resolved. He denies fever, chills, nausea, vomiting. He offloads by hanging his foot over a pillow which does not work most nights due to movement. He wears a closed shoe at this time as well. He is scheduled to have his noninvasive vascular studies performed next Wednesday. It is also noted he has a same day surgery procedure to evaluate stent placement on Wednesday the day prior. He has been offloading with the recommended surgical shoe and pillow while lying in bed. Progress of Wound: stable - Physical Exam Vital Signs Temp Pulse Resp BP 99.3 F H 85 16 126/58 H 04/20/18 14:55 04/20/18 14:55 04/20/18 14:55 04/20/18 14:55 General: Alert, Oriented x3, Cooperative Extremities: No cyanosis, Capillary Refill Less than 3 Seconds, No Calf Tenderness - Negative Herm[place] and [place] sign left, Diminished Peripheral Pulses, Edema - Mild left lower extremity, Tenderness - Tenderness with manipulation. Skin: Ulcer/ Wound - No purulence, no erythema, streaking, no odor, no infection. The wound bed is mainly fibrous with minimal increase in granulation tissue. There is no eschar or deep necrosis or probing noted. The peripheral skin is hairless and atrophic. Wound Measurements and Assessment WC - Nurse 1 - General Ulcer Measurement Start: 04/13/18 13:57 Freq: Status: Active Protocol: Activity Type Activity Date Activity User E-Sign Co-Sign Detail Recorded Client Recorded Date Recorded By Document 04/20/18 14:55 [id number] 04/20/18 14:57 04/20/18 14:55 Wound Center Nurse 1 [Ulcer Assessment] #1 L Heel -Combined with other wound No -Current Size (cm) - Length 1.0 -Current Size (cm) - Width 1.5 -Current Size (cm) - Depth 0.2 -Total Square Cm 1.50 -Photo Taken No -Epithelialization None Present -Tunneling No -Undermining/Tunneling No -Circular Undermining No -Exudate Amt Medium (34-66%) -Exudate Type Serosanguineous -Wound Margin Distinct, Outline Attached -Granulation Amt Medium (34-66%) -Granulation Quality Pale [place] -Slough/Fibrin Yes -Necrosis Amt None Present (0 %) -Necrotic Tissue Type Adherent Slough -Structure Exposed None/Limited to Skin Breakdown -Texture (Terri-wound Skin Appearance) No Abnormality Assessed -Moisture (Terri-wound Skin Appearance No Abnormality ) Assessed -Color (Terri-wound Skin Appearance) Assessed Erythema -Temperature (Terri-wound Skin No Abnormality Appearance) (Pt Warm) -Tenderness on Palpation (Terri-wound Yes Skin Appearance) -Ulcer Cleansing Rinsed/ Irrigated with Saline -Foul Odor after Cleansing No -Anesthetic Used 4% Lidocaine Solution [Edema Assessment] -Lower Limb Edema Present NA - Nurse 2 - General Ulcer CM Notes Start: 04/13/18 13:57 Freq: Status: Active Protocol: Activity Type Activity Date Activity User E-Sign Co-Sign Detail Recorded Client Recorded Date Recorded By Document 04/20/18 15:11 [id number] 04/20/18 15:12 04/20/18 15:11 Wound Center Nurse 2 [Procedure/Treatment] #1 L Heel -Time 15:11 -Correct Patient Yes -Correct Side, Site, Position Yes -Correct Procedure Yes -Procedure Performed Yes -Type of Procedure Debridement -Clinical Debridement Subcutaneous -Post Debridement Size (cm) - Length 1.2 -Post Debridement Size (cm) - Width 1.5 -Post Debridement Size (cm) - Depth 0.2 -Total Square Cm 1.80 -Wound/Ulcer Outcome Not Healed -Ulcer Cleansing Rinsed/ Irrigated with Saline -Foul Odor after Cleansing No -Bioengineered Tissue No -Bleeding Controlled with Pressure -Treatment Response Procedure Tolerated Well [See Physician Procedure note for Specifics] Pain Scale: 0-10 Numeric [Pain] -Is Patient Pain Free? Yes Musculoskeletal: No Tenderness to Palpation of Joints or Extremities, Muscle Wasting Neurological: Sensory exam intact to light touch and pain Psych/Mental Status: Normal Affect, Appropriate Debridement Note Post-Debridement Measurements/Treatment WC - Nurse 2 - General Ulcer CM Notes Start: 04/13/18 13:57 Freq: Status: Active Protocol: Activity Type Activity Date Activity User E-Sign Co-Sign Detail Recorded Client Recorded Date Recorded By Document 04/13/18 14:58 [id number] 04/13/18 14:59 Document 04/20/18 15:11 [id number] 04/20/18 15:12 04/13/18 04/20/18 14:58 15:11 Wound Center Nurse 2 #1 L Heel -Time 14:58 15:11 -Correct Patient Yes Yes -Correct Side, Site, Position Yes Yes -Correct Procedure Yes Yes -Procedure Performed Yes Yes -Type of Procedure Debridement Debridement -Clinical Debridement Subcutaneous Subcutaneous -Post Debridement Size (cm) - Length 0.9 1.2 -Post Debridement Size (cm) - Width 1 1.5 -Post Debridement Size (cm) - Depth 0.2 0.2 -Total Square Cm 0.9 1.80 -Wound/Ulcer Outcome Not Healed Not Healed -Ulcer Cleansing Rinsed/ Rinsed/ Irrigated with Irrigated with Saline Saline -Foul Odor after Cleansing No No -Bioengineered Tissue No No -Bleeding Controlled with Pressure Pressure -Treatment Response Procedure Procedure Tolerated Well Tolerated Well Pain Scale: 0-10 Numeric Is Patient Pain Free? Yes Yes Wound debrided: posterior heel Laterality: Left Type of Debridement: Excisional debridement Anesthesia Used: 4% Lidocaine Solution Depth: in the subcutaneous layer Percentage of wound debrided: 100 Instrument Used: #15 blade Tissue Removed: fibrous, devitalized subcutaneous, biofilm, slough Severity: Fat Layer Exposed Amount of bleeding with debridement: Mild Bleeding Controlled with: Pressure Patient tolerated procedure well Assessment/Plan Active Problems (Last Reviewed 04/05/18 @ 13:05 by Kat Garcia) Chronic ulcer of left foot with fat layer exposed (Chronic) Malnutrition (Chronic) Delayed wound healing (Chronic) Assessment: ulcer heel with fat layer exposed. peripheral vascular disease. delayed healing. malnutrition. other comorbidities Plan: The patient was seen and examined at the wound center today and was updated on the plan of care. Debridement was performed as noted in the clinical panel. To obtain donut offloading pillow; a new prescription was provided previously. The xray of the heel/foot was reviewed which showed calcaneal spur, no gas, no osseous destruction or acute fractures/discloations. Discussed importance of off loading mechanisms and interventions and risks. to change dressing with hydrogel with collagen. Planned debridements at follow up are scheduled and advanced product application will also be considered once the fibrous tissue is better resolved. Pre-albumin and ESR ordered previously and ESR elevated at 54 and prealbumin low at 14, discussed using 2-3 premier protein shakes per day. additional baseline labs were ordered; cbc, cmp. Vascular studies ordered and pending. Surgical shoe was fitted and dispensed and offloading pads were applied to eliminate pressure to the posterior heel ulcer; to avoid wearing closed shoes that press on this site. He is not amendable to cut the back of the shoe off. Patient educated on the importance of diet on wound healing and instructed to increase protein and vitamin C intake. Patient verbalized understanding. His noninvasive vascular studies are scheduled for next Wednesday and I will follow-up with him on the results at that time after the test is completed. Patient will follow up at wound healing center in one week or sooner if needed. I answered his questions today.
--- NOTE | 2018-04-27 12:40 | VDLE_ITS ---
Reason For Study: Non-healing wound RIGHT LEFT CFV is compressible, spontaneous, phasic, CFV is compressible, spontaneous, phasic, competent and demonstrates normal competent, and demonstrates normal augmentation. augmentation. FV is compressible, spontaneous, phasic, FV is compressible, spontaneous, phasic, competent and demonstrates normal competent and demonstrates normal augmentation. augmentation. POP V is compressible, spontaneous, phasic, POP V is compressible, spontaneous, phasic, competent and demonstrates normal competent and demonstrates normal augmentation. augmentation. T/P Trunk is compressible. T/P Trunk is compressible. PTV is compressible. PTV is compressible. RT PerV is compressible. LT PerV is compressible. SFJ competent GSV harvested in thigh GSV competent GSV competent below knee GSV too small in caliber mid thigh to assess SSV competent. SSV is competent. Procedure Exam performed in department. A preliminary report was called and/or faxed to [facility]. Interpretation Summary Deep veins of the lower extremities are bilaterally patent and compressible segmentally. There is no evidence of deep vein thrombosis on either side. Valvular competence appears intact within the proximal deep venous systems bilaterally. The right sapheno-femoral junction is competent . The right greater saphenous vein appears competent, but is too small to assess in the right mid-thigh. The left greater saphenous vein has been harvested in the left thigh, but appears competent below the knee. Small saphenous veins are patent and competent bilaterally. Ordering Physician: Joselin Dumas Referring Physician: Av Echevarria Performed By: Maria Elena Parker RVT and Student
[2018-04-27 14:50] VITALS: BP 96/50; PULSE 65; RESP 16; TEMP 36.4
--- NOTE | 2018-04-27 16:36 | PCM.WC.PN ---
(1) Chronic ulcer of left foot with fat layer exposed Status: Chronic Current Visit: Yes Code(s): L97.522 - Non-pressure chronic ulcer of other part of left foot with fat layer exposed (2) Peripheral vascular disease Status: Chronic Current Visit: Yes Code(s): I73.9 - Peripheral vascular disease, unspecified (3) Malnutrition Status: Chronic Current Visit: Yes Code(s): E46 - Unspecified protein-calorie malnutrition (4) Delayed wound healing Status: Chronic Current Visit: Yes Code(s): T14.8XXD - Other injury of unspecified body region, subsequent encounter Type of Wound Date of Service: 04/27/18 Chief Complaint: left heel ulcer History of Wound: 77 year old male presented to the wound center due to nonhealing ulcer to left heel. He reports his other ulcer has resolved. He denies fever, chills, nausea, vomiting. He offloads by hanging his foot over a pillow which does not work most nights due to movement. He wears a closed shoe at this time as well. He had a venous Doppler with reflux as well as a noninvasive arterial vascular study completed earlier today and the final results are pending. He has been offloading with the recommended surgical shoe and pillow while lying in bed. Progress of Wound: Improvement noted - Physical Exam Vital Signs Temp Pulse Resp BP 97.6 F L 65 16 96/50 L 04/27/18 14:50 04/27/18 14:50 04/27/18 14:50 04/27/18 14:50 General: Alert, Oriented x3, Cooperative HEENT: Atraumatic Extremities: No cyanosis, Capillary Refill Less than 3 Seconds, No Calf Tenderness - Negative Herminia and Mills sign bilateral, Diminished Peripheral Pulses, Edema - Mild bilateral lower extremities, Tenderness - Minimal pain with wound debridement and manipulation left heel Skin: Ulcer/ Wound - No purulence, erythema, streaking, odor, or infection. Wound bed has increased granulation tissue and there still some fibrous tissue noted. There is no exposed tendon or bone. The peripheral skin is hairless and atrophic. There is no eschar or fibrin necrotic plug Wound Measurements and Assessment WC - Nurse 1 - General Ulcer Measurement Start: 04/13/18 13:57 Freq: Status: Active Protocol: Activity Type Activity Date Activity User E-Sign Co-Sign Detail Recorded Client Recorded Date Recorded By Document 10/17/18 14:50 DL [id number] 04/27/18 14:58 DL 04/27/18 14:50 Wound Center Nurse 1 [Ulcer Assessment] #1 L Heel -Current Size (cm) - Length 0.8 -Current Size (cm) - Width 1.1 -Current Size (cm) - Depth 0.2 -Total Square Cm 0.88 -Photo Taken No -Exudate Amt None Present (0 %) -Exudate Type Serosanguineous -Wound Margin Distinct, Outline Attached -Granulation Amt None Present (0 %) -Necrosis Amt Large (67-100%) -Necrotic Tissue Type Adherent Slough -Structure Exposed N/A -Texture (Terri-wound Skin Appearance) No Abnormality -Moisture (Terri-wound Skin Appearance No Abnormality ) -Color (Terri-wound Skin Appearance) No Abnormality -Temperature (Terri-wound Skin No Abnormality Appearance) (Pt Warm) -Tenderness on Palpation (Terri-wound Yes Skin Appearance) -Ulcer Cleansing Rinsed/ Irrigated with Saline -Foul Odor after Cleansing No -Anesthetic Used 4% Lidocaine Solution WC - Nurse 2 - General Ulcer CM Notes Start: 04/13/18 13:57 Freq: Status: Active Protocol: Activity Type Activity Date Activity User E-Sign Co-Sign Detail Recorded Client Recorded Date Recorded By Document 04/27/18 15:26 [id number] 04/27/18 15:26 04/27/18 15:26 Wound Center Nurse 2 [Procedure/Treatment] -Time 15:26 -Correct Patient Yes -Correct Side, Site, Position Yes -Correct Procedure Yes -Procedure Performed Yes -Type of Procedure Debridement -Clinical Debridement Subcutaneous -Post Debridement Size (cm) - Length 0.8 -Post Debridement Size (cm) - Width 1.7 -Post Debridement Size (cm) - Depth 0.2 -Total Square Cm 1.36 -Wound/Ulcer Outcome Not Healed -Ulcer Cleansing Rinsed/ Irrigated with Saline -Foul Odor after Cleansing No -Bioengineered Tissue No -Bleeding Controlled with Pressure -Treatment Response Procedure Tolerated Well [See Physician Procedure note for Specifics] Pain Scale: 0-10 Numeric [Pain] -Is Patient Pain Free? Yes Musculoskeletal: No Tenderness to Palpation of Joints or Extremities, Muscle Wasting Neurological: Sensory exam intact to light touch and pain Psych/Mental Status: Normal Affect, Appropriate Debridement Note Post-Debridement Measurements/Treatment WC - Nurse 2 - General Ulcer CM Notes Start: 04/13/18 13:57 Freq: Status: Active Protocol: Activity Type Activity Date Activity User E-Sign Co-Sign Detail Recorded Client Recorded Date Recorded By Document 04/13/18 14:58 [id number] 04/13/18 14:59 Document 04/20/18 15:11 [id number] 04/20/18 15:12 Document 04/27/18 15:26 [id number] 04/27/18 15:26 04/13/18 04/20/18 04/27/18 14:58 15:11 15:26 Wound Center Nurse 2 #1 L Heel -Time 14:58 15:11 15:26 -Correct Patient Yes Yes Yes -Correct Side, Site, Position Yes Yes Yes -Correct Procedure Yes Yes Yes -Procedure Performed Yes Yes Yes -Type of Procedure Debridement Debridement Debridement -Clinical Debridement Subcutaneous Subcutaneous Subcutaneous -Post Debridement Size (cm) - Length 0.9 1.2 0.8 -Post Debridement Size (cm) - Width 1 1.5 1.7 -Post Debridement Size (cm) - Depth 0.2 0.2 0.2 -Total Square Cm 0.9 1.80 1.36 -Wound/Ulcer Outcome Not Healed Not Healed Not Healed -Ulcer Cleansing Rinsed/ Rinsed/ Rinsed/ Irrigated with Irrigated with Irrigated with Saline Saline Saline -Foul Odor after Cleansing No No No -Bioengineered Tissue No No No -Bleeding Controlled with Pressure Pressure Pressure -Treatment Response Procedure Procedure Procedure Tolerated Well Tolerated Well Tolerated Well Pain Scale: 0-10 Numeric Is Patient Pain Free? Yes Yes Yes Wound debrided: posterior heel Laterality: Left Type of Debridement: Excisional debridement Anesthesia Used: 4% Lidocaine Solution Depth: in the subcutaneous layer Percentage of wound debrided: 100 Instrument Used: #15 blade Tissue Removed: fibrous, devitalized subcutaneous, biofilm, slough Severity: Fat Layer Exposed Amount of bleeding with debridement: Mild Bleeding Controlled with: Pressure Patient tolerated procedure well Assessment/Plan Active Problems (Last Reviewed 04/05/18 @ 13:05 by Kat Garcia) Chronic ulcer of left foot with fat layer exposed (Chronic) Peripheral vascular disease (Chronic) Malnutrition (Chronic) Delayed wound healing (Chronic) Assessment: ulcer heel with fat layer exposed. 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 delayed healing. malnutrition. other comorbidities Plan: The patient was seen and examined at the wound center today and was updated on the plan of care. Debridement was performed as noted in the clinical panel. To continue donut offloading pillow.. The xray of the heel/foot was reviewed which showed calcaneal spur, no gas, no osseous destruction or acute fractures/discloations. Discussed importance of off loading mechanisms and interventions and risks. to change dressing with hydrogel with collagen. Planned debridements at follow up are scheduled and advanced product application will also be considered once the fibrous tissue is better resolved. Pre-albumin and ESR ordered previously and ESR elevated at 54 and prealbumin low at 14, discussed using 2-3 premier protein shakes per day. additional baseline labs were ordered; cbc, cmp. Vascular studies including noninvasive arterial were reviewed. The ankle-brachial index on the left lower externally is normal. This is elevated on the right lower extremity suggesting calcification of the arteries. There are biphasic and triphasic waveforms to bilateral lower extremities. The venous Doppler with reflux evaluation was also reviewed with competent veins noted and it is also noted on the left lower extremity that the great saphenous vein has been harvested. The final reports for both of the studies are pending. Surgical shoe was fitted and dispensed and offloading pads were applied to eliminate pressure to the posterior heel ulcer; to avoid wearing closed shoes that press on this site. He is not amendable to cut the back of the shoe off. Patient educated on the importance of diet on wound healing and instructed to increase protein and vitamin C intake. Patient verbalized understanding. Patient will follow up at wound healing center in one week or sooner if needed. I recommend advanced wound care product to optimize timely healing. Prior authorization will be initiated for epi fix. The indication, planned procedure, possible benefits, risks, complications, and anticipated healing time and management were discussed in detail with the patient today. No guarantees were made and he is amenable to proceed forward with this advanced product. He understands serial debridement and applications are necessary. This is medically necessary. I answered his questions today.
--- NOTE | 2018-04-27 16:41 | PN.PCM_ITS ---
(1) Chronic ulcer of left foot with fat layer exposed Status: Chronic Current Visit: Yes Code(s): L97.522 - Non-pressure chronic ulcer of other part of left foot with fat layer exposed (2) Peripheral vascular disease Status: Chronic Current Visit: Yes Code(s): I73.9 - Peripheral vascular disease, unspecified (3) Malnutrition Status: Chronic Current Visit: Yes Code(s): E46 - Unspecified protein- calorie malnutrition (4) Delayed wound healing Status: Chronic Current Visit: Yes Code(s): T14.8XXD - Other injury of unspecified body region, subsequent encounter Type of Wound Date of Service: 04/27/18 Chief Complaint: left heel ulcer History of Wound: 77 year old male presented to the wound center due to nonheali ng ulcer to left heel. He reports his other ulcer has resolved. He denies fever, chills, nausea, vomiting. He offloads by hanging his foot over a pillow which does not work most nights due to movement. He wears a closed shoe at this time as well. He had a venous Doppler with reflux as well as a noninvasive arterial vascular study completed earlier today and the final results are pending. He has been offloading with the recommended surgical shoe and pillow while lying in bed. Progress of Wound: Improvement noted - Physical Exam Vital Signs Temp Pulse Resp BP 97.6 F L 65 16 96/50 L 04/27/18 14:50 04/27/18 14:50 04/27/18 14:50 04/27/18 14:50 General: Alert, Oriented x3, Cooperative HEENT: Atraumatic Extremities: No cyanosis, Capillary Refill Less than 3 Seconds, No Calf Tenderness - Negative Herminia and Mills sign bilateral, Diminished Peripheral Pulses, Edema - Mild bilateral lower extremities, Tenderness - Minimal pain with wound debridement and manipulation left heel Skin: Ulcer/ Wound - No purulence, erythema, streaking, odor, or infection. Wound bed has increased granulation tissue and there still some fibrous tissue noted. There is no exposed tendon or bone. The peripheral skin is hairless and atrophic. There is no eschar or fibrin necrotic plug Wound Measurements and Assessment WC - Nurse 1 - General Ulcer Measurement Start: 04/13/18 13:57 Freq: Status: Active Protocol: Activity Type Activity Date Activity User E-Sign Co-Sign Detail Recorded Client Recorded Date Recorded By Document 04/27/18 14:50 DL [id number] 04/27/18 14:58 DL 04/27/18 14:50 Wound Center Nurse 1 [Ulcer Assessment] #1 L Heel -Current Size (cm) - Length 0.8 -Current Size (cm) - Width 1.1 -Current Size (cm) - Depth 0.2 -Total Square Cm 0.88 -Photo Taken No -Exudate Amt None Present (0 %) -Exudate Type Serosanguineous -Wound Margin Distinct, Outline Attached -Granulation Amt None Present (0 %) -Necrosis Amt Large (67-100%) -Necrotic Tissue Type Adherent Slough -Structure Exposed N/A -Texture (Terri-wound Skin Appearance) No Abnormality -Moisture (Terri-wound Skin Appearance No Abnormality ) -Color (Terri-wound Skin Appearance) No Abnormality -Temperature (Terri-wound Skin No Abnormality Appearance) (Pt Warm) -Tenderness on Palpation (Terri-wound Yes Skin Appearance) -Ulcer Cleansing Rinsed/ Irrigated with Saline -Foul Odor after Cleansing No -Anesthetic Used 4% Lidocaine Solution WC - Nurse 2 - General Ulcer CM Notes Start: 04/13/18 13:57 Freq: Status: Active Protocol: Activity Type Activity Date Activity User E-Sign Co-Sign Detail Recorded Client Recorded Date Recorded By Document 04/27/18 15:26 [id number] 04/27/18 15:26 04/27/18 15:26 Wound Center Nurse 2 [Procedure/Treatment] -Time 15:26 -Correct Patient Yes -Correct Side, Site, Position Yes -Correct Procedure Yes -Procedure Performed Yes -Type of Procedure Debridement -Clinical Debridement Subcutaneous -Post Debridement Size (cm) - Length 0.8 -Post Debridement Size (cm) - Width 1.7 -Post Debridement Size (cm) - Depth 0.2 -Total Square Cm 1.36 -Wound/Ulcer Outcome Not Healed -Ulcer Cleansing Rinsed/ Irrigated with Saline -Foul Odor after Cleansing No -Bioengineered Tissue No -Bleeding Controlled with Pressure -Treatment Response Procedure Tolerated Well [See Physician Procedure note for Specifics] Pain Scale: 0-10 Numeric [Pain] -Is Patient Pain Free? Yes Musculoskeletal: No Tenderness to Palpation of Joints or Extremities, Muscle Wasting Neurological: Sensory exam intact to light touch and pain Psych/Mental Status: Normal Affect, Appropriate Debridement Note Post-Debridement Measurements/Treatment WC - Nurse 2 - General Ulcer CM Notes Start: 04/13/18 13:57 Freq: Status: Active Protocol: Activity Type Activity Date Activity User E-Sign Co-Sign Detail Recorded Client Recorded Date Recorded By Document 04/13/18 14:58 [id number] 04/13/18 14:59 Document 04/20/18 15:11 [id number] 04/20/18 15:12 Document 04/27/18 15:26 [id number] 04/27/18 15:26 04/13/18 04/20/18 04/27/18 14:58 15:11 15:26 Wound Center Nurse 2 #1 L Heel -Time 14:58 15:11 15:26 -Correct Patient Yes Yes Yes -Correct Side, Site, Position Yes Yes Yes -Correct Procedure Yes Yes Yes -Procedure Performed Yes Yes Yes -Type of Procedure Debridement Debridement Debridement -Clinical Debridement Subcutaneous Subcutaneous Subcutaneous -Post Debridement Size (cm) - Length 0.9 1.2 0.8 -Post Debridement Size (cm) - Width 1 1.5 1.7 -Post Debridement Size (cm) - Depth 0.2 0.2 0.2 -Total Square Cm 0.9 1.80 1.36 -Wound/Ulcer Outcome Not Healed Not Healed Not Healed -Ulcer Cleansing Rinsed/ Rinsed/ Rinsed/ Irrigated with Irrigated with Irrigated with Saline Saline Saline -Foul Odor after Cleansing No No No -Bioengineered Tissue No No No -Bleeding Controlled with Pressure Pressure Pressure -Treatment Response Procedure Procedure Procedure Tolerated Well Tolerated Well Tolerated Well Pain Scale: 0-10 Numeric Is Patient Pain Free? Yes Yes Yes Wound debrided: posterior heel Laterality: Left Type of Debridement: Excisional debridement Anesthesia Used: 4% Lidocaine Solution Depth: in the subcutaneous layer Percentage of wound debrided: 100 Instrument Used: #15 blade Tissue Removed: fibrous, devitalized subcutaneous, biofilm, slough Severity: Fat Layer Exposed Amount of bleeding with debridement: Mild Bleeding Controlled with: Pressure Patient tolerated procedure well Assessment/Plan Active Problems (Last Reviewed 04/05/18 @ 13:05 by Kat Garcia) Chronic ulcer of left foot with fat layer exposed (Chronic) Peripheral vascular disease (Chronic) Malnutrition (Chronic) Delayed wound healing (Chronic) Assessment: ulcer heel with fat layer exposed. 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 delayed healing. malnutrition. other comorbidities Plan: The patient was seen and examined at the wound center today and was updated on the plan of care. Debridement was performed as noted in the clinical panel. To continue donut offloading pillow.. The xray of the heel/foot was reviewed which showed calcaneal spur, no gas, no osseous destruction or acute fractures/discloations. Discussed importance of off loading mechanisms and interventions and risks. to change dressing with hydrogel with collagen. Planned debridements at follow up are scheduled and advanced product application will also be considered once the fibrous tissue is better resolved. Pre-albumin and ESR ordered previously and ESR elevated at 54 and prealbumin low at 14, discussed using 2-3 premier protein shakes per day. additional baseline labs were ordered; cbc, cmp. Vascular studies including noninvasive arterial were reviewed. The ankle-brachial index on the left lower externally is normal. This is elevated on the right lower extremity suggesting calcification of the arteries. There are biphasic and triphasic waveforms to bilateral lower extremities. The venous Doppler with reflux evaluation was also reviewed with competent veins noted and it is also noted on the left lower extremity that the great saphenous vein has been harvested. The final reports for both of the studies are pending. Surgical shoe was fitted and dispensed and offloading pads were applied to eliminate pressure to the posterior heel ulcer; to avoid wearing closed shoes that press on this site. He is not amendable to cut the back of the shoe off. Patient educated on the importance of diet on wound healing and instructed to increase protein and vitamin C intake. Patient verbalized understanding. Patient will follow up at wound healing center in one week or sooner if needed. I recommend advanced wound care product to optimize timely healing. Prior authorization will be initiated for epi fix. The indication, planned procedure, possible benefits, risks, complications, and anticipated healing time and management were discussed in detail with the patient today. No guarantees were made and he is amenable to proceed forward with this advanced product. He understands serial debridement and applications are necessary. This is medically necessary. I answered his questions today.
--- NOTE | 2018-05-01 12:02 | LEAS ---
Arterial Study - Arterial Study Arterial Study: This is a 77-year-old male with a history of carotid artery stenosis, chronic kidney disease, cerebrovascular accident, coronary artery disease, hyperlipidemia, obstructive sleep apnea, and pacemaker insertion. The patient presents with a chronic nonhealing wound to the left lower extremity. Suspecting the presence of atherosclerotic peripheral arterial occlusive disease, the patient was brought to the noninvasive vascular laboratory at this time for the purpose of bilateral noninvasive lower extremity arterial assessment. Doppler signal assessment was used to evaluate the pulses at ankle level bilaterally. Posterior tibial pulses were triphasic bilaterally. Dorsalis pedis pulses were biphasic bilaterally. Segmental limb pressures were obtained bilaterally. The right ankle pressure, as determined by posterior tibial pulse, was measured at 207 mmHg. The right ankle pressure, as determined by dorsalis pedis pulse, was measured at 195 mmHg. The right digital pressure was measured at 80 mmHg. The left ankle pressure, as determined by posterior tibial pulse, was measured at 140 mmHg. The left ankle pressure, as determined by dorsalis pedis pulse, was measured at 130 mmHg. The left digital pressure was measured at 44 mmHg. Pulse?volume recordings were obtained bilaterally and segmentally. Waveform amplitudes appeared to be satisfactory at low thigh, calf, and ankle levels bilaterally. Waveform amplitudes at the right digital level appeared satisfactory. Left digital waveforms were diminished. Resting ankle?brachial indices were calculated bilaterally. The resting right ankle?brachial index was calculated to be 1.74. The resting left ankle?brachial index was calculated to be 1.18. Digital?brachial indices were calculated bilaterally. The right digital-brachial index was calculated to be 0.67. The left digital-brachial index was calculated to be 0.37. Impression: Based upon the findings of this resting noninvasive lower extremity arterial study, arterial perfusion to ankle level appears to be relatively normal bilaterally. Triphasic and biphasic waveforms were noted at ankle level bilaterally. The resting right ankle?brachial index is supra-normal, suggesting the presence of arterial calcification. The resting left ankle?brachial index is normal, suggesting relatively normal arterial perfusion at left ankle level. The right digital-brachial index is mildly diminished, suggesting the presence of mild, distal, small?vessel arterial occlusive disease in the right lower extremity. The left digital-brachial index is moderately to severely diminished, suggesting the presence of [id number] distal, small?vessel arterial occlusive disease in the left lower extremity. Clinical correlation is advised.
--- NOTE | 2018-05-01 12:10 | LEAS_ITS ---
Arterial Study - Arterial Study Arterial Study: This is a 77-year-old male with a history of carotid artery stenosis, chronic kidney disease, cerebrovascular accident, coronary artery disease, hyperlipidemia, obstructive sleep apnea, and pacemaker insertion. The patient presents with a chronic nonhealing wound to the left lower extremity. Suspecting the presence of atherosclerotic peripheral arterial occlusive disease, the patient was brought to the noninvasive vascular laboratory at this time for the purpose of bilateral noninvasive lower extremity arterial assessment. Doppler signal assessment was used to evaluate the pulses at ankle level bilaterally. Posterior tibial pulses were triphasic bilaterally. Dorsalis pedis pulses were biphasic bilaterally. Segmental limb pressures were obtained bilaterally. The right ankle pressure, as determined by posterior tibial pulse, was measured at 207 mmHg. The right ankle pressure, as determined by dorsalis pedis pulse, was measured at 195 mmHg. The right digital pressure was measured at 80 mmHg. The left ankle pressure, as determined by posterior tibial pulse, was measured at 140 mmHg. The left ankle pressure, as determined by dorsalis pedis pulse, was measured at 130 mmHg. The left digital pressure was measured at 44 mmHg. Pulse?volume recordings were obtained bilaterally and segmentally. Waveform amplitudes appeared to be satisfactory at low thigh, calf, and ankle levels bilaterally. Waveform amplitudes at the right digital level appeared satisfactory. Left digital waveforms were diminished. Resting ankle?brachial indices were calculated bilaterally. The resting right ankle?brachial index was calculated to be 1.74. The resting left ankle?brachial index was calculated to be 1.18. Digital?brachial indices were calculated bilaterally. The right digital- brachial index was calculated to be 0.67. The left digital-brachial index was calculated to be 0.37. Impression: Based upon the findings of this resting noninvasive lower extremity arterial study, arterial perfusion to ankle level appears to be relatively normal bilaterally. Triphasic and biphasic waveforms were noted at ankle level bilaterally. The resting right ankle?brachial index is supra-normal, suggesting the presence of arterial calcification. The resting left ankle?brachial index is normal, suggesting relatively normal arterial perfusion at left ankle level. The right digital-brachial index is mildly diminished, suggesting the presence of mild, distal, small?vessel arterial occlusive disease in the right lower extremity. The left digital-brachial index is moderately to severely diminished, suggesting the presence of [id number] distal, small?vessel arterial occlusive disease in the left lower extremity. Clinical correlation is advised.
[2018-05-11 14:28] VITALS: BP 149/78; PULSE 79; RESP 16; TEMP 37.7
--- NOTE | 2018-05-11 15:27 | PN.PCM_ITS ---
(1) Chronic ulcer of left foot with fat layer exposed Status: Chronic Code(s): L97.522 - Non-pressure chronic ulcer of other part of left foot with fat layer exposed (2) Peripheral vascular disease Status: Chronic Code(s): I73.9 - Peripheral vascular disease, unspecified (3) Malnutrition Status: Chronic Code(s): E46 - Unspecified protein-calorie malnutrition (4) Delayed wound healing Status: Chronic Code(s): T14.8XXD - Other injury of unspecified body region, subsequent encounter Type of Wound Date of Service: 05/11/18 Chief Complaint: left heel ulcer History of Wound: 77 year old male presented to the wound center due to nonhealing ulcer to left heel. He reports his other ulcer has resolved. He denies fever, chills, nausea, vomiting. He offloads by hanging his foot over a pillow which does not work most nights due to movement. He wears a closed shoe at this time as well. He had a venous Doppler with reflux as well as a noninvasive arterial vascular study completed and would like to review the results today. He has been offloading with the recommended surgical shoe and pillow while lying in bed. Progress of Wound: Improving - Physical Exam Vital Signs Temp Pulse Resp BP 100 F H 79 16 149/78 H 05/11/18 14:28 05/11/18 14:28 05/11/18 14:28 05/11/18 14:28 General: Alert, Oriented x3, Cooperative Extremities: No cyanosis, Capillary Refill Less than 3 Seconds, No Calf Tenderness - Negative Herminia and Mills sign bilateral, Diminished Peripheral Pulses, Edema - Mild bilateral lower extremities Skin: Ulcer/ Wound - No purulence, no erythema, streaking, no odor, no acute signs of infection. The peripheral skin is hairless and atrophic. The ulcer site is fibrosing granulation tissue noted. Wound Measurements and Assessment WC - Nurse 1 - General Ulcer Measurement Start: 04/13/18 13:57 Freq: Status: Active Protocol: Activity Type Activity Date Activity User E-Sign Co-Sign Detail Recorded Client Recorded Date Recorded By Document 05/11/18 14:28 [facility] [id number] 05/11/18 14:34 [facility] 05/11/18 14:28 Wound Center Nurse 1 [Ulcer Assessment] #1 L Heel -Combined with other wound No -Current Size (cm) - Length 0.7 -Current Size (cm) - Width 1.2 -Current Size (cm) - Depth 0.3 -Total Square Cm 0.84 -Photo Taken No -Epithelialization None Present -Tunneling No -Undermining/Tunneling No -Circular Undermining No -Exudate Amt Small (1-33%) -Exudate Type Serous -Wound Margin Distinct, Outline Attached -Granulation Amt None Present (0 %) -Slough/Fibrin Yes -Necrosis Amt Large (67-100%) -Necrotic Tissue Type Adherent Slough -Structure Exposed N/A -Texture (Terri-wound Skin Appearance) Scarring -Moisture (Terri-wound Skin Appearance Dry/Scaly ) -Color (Terri-wound Skin Appearance) Erythema -Temperature (Terri-wound Skin No Abnormality Appearance) (Pt Warm) -Tenderness on Palpation (Terri-wound Yes Skin Appearance) -Ulcer Cleansing Rinsed/ Irrigated with Saline -Foul Odor after Cleansing No -Anesthetic Used 4% Lidocaine Solution WC - Nurse 2 - General Ulcer CM Notes Start: 04/13/18 13:57 Freq: Status: Active Protocol: Activity Type Activity Date Activity User E-Sign Co-Sign Detail Recorded Client Recorded Date Recorded By Document 05/11/18 14:47 [id number] 05/11/18 14:48 05/11/18 14:47 Wound Center Nurse 2 [Procedure/Treatment] -Time 14:48 -Correct Patient Yes -Correct Side, Site, Position Yes -Correct Procedure Yes -Procedure Performed Yes -Type of Procedure Debridement -Clinical Debridement Subcutaneous -Post Debridement Size (cm) - Length 0.8 -Post Debridement Size (cm) - Width 1.2 -Post Debridement Size (cm) - Depth 0.3 -Total Square Cm 0.96 -Wound/Ulcer Outcome Not Healed -Ulcer Cleansing Rinsed/ Irrigated with Saline -Foul Odor after Cleansing No -Bioengineered Tissue No -Bleeding Controlled with Pressure -Treatment Response Procedure Tolerated Well [See Physician Procedure note for Specifics] Pain Scale: 0-10 Numeric [Pain] -Is Patient Pain Free? Yes Musculoskeletal: No Tenderness to Palpation of Joints or Extremities, Muscle Wasting, - - Compartments soft left lower extremity Neurological: Sensory exam intact to light touch and pain Psych/Mental Status: Normal Affect, Appropriate Debridement Note Post-Debridement Measurements/Treatment WC - Nurse 2 - General Ulcer CM Notes Start: 04/13/18 13:57 Freq: Status: Active Protocol: Activity Type Activity Date Activity User E-Sign Co-Sign Detail Recorded Client Recorded Date Recorded By Document 04/13/18 14:58 [id number] 04/13/18 14:59 Document 04/20/18 15:11 [id number] 04/20/18 15:12 Document 04/27/18 15:26 [id number] 04/27/18 15:26 Document 05/11/18 14:47 [id number] 05/11/18 14:48 04/13/18 04/20/18 04/27/18 14:58 15:11 15:26 Wound Center Nurse 2 #1 L Heel -Time 14:58 15:11 15:26 -Correct Patient Yes Yes Yes -Correct Side, Site, Position Yes Yes Yes -Correct Procedure Yes Yes Yes -Procedure Performed Yes Yes Yes -Type of Procedure Debridement Debridement Debridement -Clinical Debridement Subcutaneous Subcutaneous Subcutaneous -Post Debridement Size (cm) - Length 0.9 1.2 0.8 -Post Debridement Size (cm) - Width 1 1.5 1.7 -Post Debridement Size (cm) - Depth 0.2 0.2 0.2 -Total Square Cm 0.9 1.80 1.36 -Wound/Ulcer Outcome Not Healed Not Healed Not Healed -Ulcer Cleansing Rinsed/ Rinsed/ Rinsed/ Irrigated with Irrigated with Irrigated with Saline Saline Saline -Foul Odor after Cleansing No No No -Bioengineered Tissue No No No -Bleeding Controlled with Pressure Pressure Pressure -Treatment Response Procedure Procedure Procedure Tolerated Well Tolerated Well Tolerated Well Pain Scale: 0-10 Numeric Is Patient Pain Free? Yes Yes Yes 05/11/18 14:47 Wound Center Nurse 2 #1 L Heel -Time 14:48 -Correct Patient Yes -Correct Side, Site, Position Yes -Correct Procedure Yes -Procedure Performed Yes -Type of Procedure Debridement -Clinical Debridement Subcutaneous -Post Debridement Size (cm) - Length 0.8 -Post Debridement Size (cm) - Width 1.2 -Post Debridement Size (cm) - Depth 0.3 -Total Square Cm 0.96 -Wound/Ulcer Outcome Not Healed -Ulcer Cleansing Rinsed/ Irrigated with Saline -Foul Odor after Cleansing No -Bioengineered Tissue No -Bleeding Controlled with Pressure -Treatment Response Procedure Tolerated Well Pain Scale: 0-10 Numeric Is Patient Pain Free? Yes Wound debrided: posterior heel Laterality: Left Type of Debridement: Excisional debridement Anesthesia Used: 4% Lidocaine Solution Depth: in the subcutaneous layer Percentage of wound debrided: 100 Instrument Used: #15 blade Tissue Removed: fibrous, devitalized subcutaneous, biofilm, slough Severity: Fat Layer Exposed Amount of bleeding with debridement: Mild Bleeding Controlled with: Pressure Patient tolerated procedure well Assessment/Plan Assessment: ulcer heel with fat layer exposed. Possible small vessel disease. delayed healing. malnutrition. other comorbidities Plan: The patient was seen and examined at the wound center today and was updated on the plan of care. Debridement was performed as noted in the clinical panel. To continue donut offloading pillow. The xray of the heel/foot was reviewed which showed calcaneal spur, no gas, no osseous destruction or acute fr actures/discloations. Discussed importance of off loading mechanisms and interventions and risks. to change dressing with hydrogel with collagen. Debridement was performed as noted in the clinical panel. Pre-albumin and ESR ordered previously and ESR elevated at 54 and prealbumin low at 14, discussed using 2-3 premier protein shakes per day. additional baseline labs were ordered; cbc, cmp. Vascular studies including noninvasive arterial were reviewed. The ankle-brachial index on the left lower externally is normal. This is elevated on the right lower extremity suggesting calcification of the arteries. There are biphasic and triphasic waveforms to bilateral lower extremities. The toe brachial index on the left lower extremity was 0.36. The venous Doppler with reflux evaluation was also reviewed with competent veins noted and it is also noted on the left lower extremity that the great saphenous vein has been harvested. Surgical shoe was fitted and dispensed and offloading pads were applied to eliminate pressure to the posterior heel ulcer; to avoid wearing closed shoes that press on this site. He is not amendable to cut the back of the shoe off. Patient educated on the importance of diet on wound healing and instructed to increase protein and vitamin C intake. Patient verbalized understanding. Patient will follow up at wound healing center in one week or sooner if needed. I recommend advanced wound care product to optimize timely healing. Prior authorization was completed and it is noted he has an [id number] expense. He would like to confirm where he is at prior to going forward with application. The indication, planned procedure, possible benefits, risks, complications, and anticipated healing time and management were discussed in detail with the patient today. No guarantees were made and he is amenable to proceed forward with this advanced product. He understands serial debridement and applications are necessary. This is medically necessary. I answered his questions today.
== END 2018-05-11 23:59 ==
LOC: WC 14:30
PROVIDERS: Family Provider Student in an Organized Health Care Education/Training Program; PCP Student in an Organized Health Care Education/Training Program; Referring Provider Nurse Practitioner Family; Visit Provider Podiatrist
DX: I73.9 Peripheral vascular disease, unspecified (principal); L97.422 Non-pressure chronic ulcer of left heel and midfoot with fat layer exposed; R60.0 Localized edema; R09.89 Other specified symptoms and signs involving the circulatory and respiratory systems
CPT/HCPCS: 11042; 93923; 93970

== ENCOUNTER 2018-06-08 14:45 | Outpatient (RCR) | payer SELFPAY ==
[2016-01-28 10:00] VITALS: BMI 30.7
[2018-05-12 01:24] VITALS: BP 149/78; PULSE 79; RESP 16; TEMP 37.7
[2018-05-18 14:45] VITALS: BP 140/78; PULSE 85; RESP 18; TEMP 36.8
--- NOTE | 2018-05-18 23:34 | PN.PCM_ITS ---
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 Status: Chronic Current Visit: Yes Qualifiers: Laterality: left Qualified Code(s): L97.422 - Non-pressure chronic ulcer of left heel and midfoot with fat layer exposed Code(s): L97.402 - Non-pressure chronic ulcer of unspecified heel and midfoot with fat layer exposed (2) Peripheral vascular disease Status: Chronic Current Visit: Yes Code(s): I73.9 - Peripheral vascular disease, unspecified (3) Malnutrition Status: Chronic Current Visit: Yes Code(s): E46 - Unspecified protein- calorie malnutrition (4) Delayed wound healing Status: Chronic Current Visit: Yes Code(s): T14.8XXD - Other injury of unspecified body region, subsequent encounter Type of Wound Date of Service: 05/18/18 Chief Complaint: left heel ulcer History of Wound: 77 year old male presented to the wound center due to nonhealing ulcer to left heel. He reports his other ulcer has resolved. He denies fever, chills, nausea, vomiting. He offloads by hanging his foot over a pillow which does not work most nights due to movement. He wears a closed shoe at this time as well. He had a venous Doppler with reflux as well as a noninvasive arterial vascular study completed and would like to discuss the results today. He has been offloading with the recommended surgical shoe and pillow while lying in bed. He obtain home pillow however is concerned that this is not what I had ordered and there is still significant pressure being applied to the ulcer site. Progress of Wound: Improving - Physical Exam Vital Signs Temp Pulse Resp BP 98.2 F 85 18 140/78 H 05/18/18 14:45 05/18/18 14:45 05/18/18 14:45 05/18/18 14:45 General: Alert, Oriented x3, Cooperative Extremities: No cyanosis, Capillary Refill Less than 3 Seconds, No Calf Tenderness - Negative Herminia and Mills sign bilateral, Diminished Peripheral Pulses, Edema - Mild bilateral lower extremities, Tenderness - Tenderness with ulcer manipulation Skin: Ulcer/ Wound - No purulence, erythema, streaking, odor, or acute signs of infection. The peripheral skin is hairless and atrophic. There is improved granulation tissue to approximately 50% of the ulcer site Wound Measurements and Assessment WC - Nurse 1 - General Ulcer Measurement Start: 05/18/18 14:45 Freq: Status: Active Protocol: Activity Type Activity Date Activity User E-Sign Co-Sign Detail Recorded Client Recorded Date Recorded By Document 05/18/18 14:45 DL [id number] 05/18/18 14:55 DL 05/18/18 14:45 Wound Center Nurse 1 [Ulcer Assessment] #1 L Heel -Current Size (cm) - Length 0.8 -Current Size (cm) - Width 1 -Current Size (cm) - Depth 0.2 -Total Square Cm 0.8 -Photo Taken No -Exudate Amt Small (1-33%) -Exudate Type Serosanguineous -Wound Margin Distinct, Outline Attached -Granulation Amt None Present (0 %) -Necrosis Amt Large (67-100%) -Necrotic Tissue Type Adherent Slough -Structure Exposed N/A -Texture (Terri-wound Skin Appearance) No Abnormality -Moisture (Terri-wound Skin Appearance Dry/Scaly ) -Color (Terri-wound Skin Appearance) No Abnormality -Temperature (Terri-wound Skin No Abnormality Appearance) (Pt Warm) -Tenderness on Palpation (Terri-wound No Skin Appearance) -Ulcer Cleansing Wound Cleanser -Foul Odor after Cleansing No -Anesthetic Used 4% Lidocaine Solution [Edema Assessment] -Left Calf (cm) 34.5 -Left Ankle (cm) 20.7 WC - Nurse 2 - General Ulcer CM Notes Start: 05/18/18 14:45 Freq: Status: Active Protocol: Activity Type Activity Date Activity User E-Sign Co-Sign Detail Recorded Client Recorded Date Recorded By Document 05/18/18 15:33 [id number] 05/18/18 15:37 05/18/18 15:33 Wound Center Nurse 2 [Procedure/Treatment] #1 L Heel -Time 15:33 -Correct Patient Yes -Correct Side, Site, Position Yes -Correct Procedure Yes -Procedure Performed Yes -Type of Procedure Debridement -Clinical Debridement Subcutaneous -Post Debridement Size (cm) - Length 0.9 -Post Debridement Size (cm) - Width 1.0 -Post Debridement Size (cm) - Depth 0.2 -Total Square Cm 0.90 -Wound/Ulcer Outcome Not Healed -Ulcer Cleansing Rinsed/ Irrigated with Saline -Foul Odor after Cleansing No -Bioengineered Tissue No -Bleeding Controlled with Pressure -Treatment Response Procedure Tolerated Well [See Physician Procedure note for Specifics] Pain Scale: 0-10 Numeric [Pain] -Is Patient Pain Free? Yes Musculoskeletal: No Tenderness to Palpation of Joints or Extremities, Muscle Wasting Neurological: Sensory exam intact to light touch and pain, - Psych/Mental Status: Normal Affect, Appropriate Debridement Note Post-Debridement Measurements/Treatment WC - Nurse 2 - General Ulcer CM Notes Start: 05/18/18 14:45 Freq: Status: Active Protocol: Activity Type Activity Date Activity User E-Sign Co-Sign Detail Recorded Client Recorded Date Recorded By Document 05/18/18 15:33 [id number] 05/18/18 15:37 05/18/18 15:33 Wound Center Nurse 2 #1 L Heel -Time 15:33 -Correct Patient Yes -Correct Side, Site, Position Yes -Correct Procedure Yes -Procedure Performed Yes -Type of Procedure Debridement -Clinical Debridement Subcutaneous -Post Debridement Size (cm) - Length 0.9 -Post Debridement Size (cm) - Width 1.0 -Post Debridement Size (cm) - Depth 0.2 -Total Square Cm 0.90 -Wound/Ulcer Outcome Not Healed -Ulcer Cleansing Rinsed/ Irrigated with Saline -Foul Odor after Cleansing No -Bioengineered Tissue No -Bleeding Controlled with Pressure -Treatment Response Procedure Tolerated Well Pain Scale: 0-10 Numeric Is Patient Pain Free? 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 delayed healing. malnutrition. other comorbidities Plan: The patient was seen and examined at the wound center today and was updated on the plan of care. Debridement was performed as noted in the clinical panel. To continue donut offloading pillow. He did obtain an offloading pillow however I do not recommend using this because there is still significant pressure applied to the ulcer site. It is noted in the meantime he has been hanging his heel over pillows to float the site in the air which is also appropriate. The xray of the heel/foot was reviewed which showed calcaneal spur, no gas, no osseous destruction or acute fractures/discloations. Discussed importance of off loading mechanisms and interventions and risks. to change dressing with hydrogel with collagen. Planned debridements at follow up are scheduled and advanced product application will also be considered once the fibrous tissue is better resolved. Progress has been noted. Pre-albumin and ESR ordered previously and ESR elevated at 54 and prealbumin low at 14, discussed using 2-3 premier protein shakes per day. additional baseline labs were ordered; cbc, cmp. Vascular studies including noninvasive arterial were reviewed. This is elevated on the right lower extremity suggesting calcification of the arteries. There are biphasic and triphasic waveforms to bilateral lower extremities. There is no evidence of critical limb ischemia however these results are elevated and referral will be considered if lack of healing is noted. The right ankle-brachial index is 1.74 and left is 1.18. The right digital brachial index is 0.67 and left is 0.37. The venous Doppler with reflux evaluation was also reviewed with competent veins noted and it is also noted on the left lower extremity that the great saphenous vein has been harvested. There was no evidence of deep venous thrombosis. Surgical shoe was fitted and dispensed and offloading pads were applied to eliminate pressure to the posterior heel ulcer; to avoid wearing closed shoes that press on this site. He is not amendable to cut the back of the shoe off. Patient educated on the importance of diet on wound healing and instructed to increase protein and vitamin C intake. Patient verbalized understanding. Patient will follow up at wound healing center in one week or sooner if needed. I recommend advanced wound care product to optimize timely healing. Prior authorization will be initiated for epi fix. The indication, planned procedure, possible benefits, risks, complications, and anticipated healing time and management were discussed in detail with the patient today. No guarantees were made and he is amenable to proceed forward with this advanced product. He understands serial debridement and applications are necessary. This is medically necessary. He relates he is not able to currently meet his [id number] expense and defers application today. I encouraged him to contact his insurance company to confirm his most up-to-date status. I answered his questions today.
[2018-05-25 14:31] VITALS: BP 147/77; PULSE 89; RESP 18; TEMP 36.3
--- NOTE | 2018-05-25 17:15 | PN.PCM_ITS ---
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 Status: Chronic Current Visit: Yes Qualifiers: Laterality: left Qualified Code(s): L97.422 - Non-pressure chronic ulcer of left heel and midfoot with fat layer exposed Code(s): L97.402 - Non-pressure chronic ulcer of unspecified heel and midfoot with fat layer exposed (2) Peripheral vascular disease Status: Chronic Current Visit: Yes Code(s): I73.9 - Peripheral vascular disease, unspecified (3) Malnutrition Status: Chronic Current Visit: Yes Code(s): E46 - Unspecified protein- calorie malnutrition (4) Delayed wound healing Status: Chronic Current Visit: Yes Code(s): T14.8XXD - Other injury of unspecified body region, subsequent encounter Type of Wound Date of Service: 05/25/18 Chief Complaint: left heel ulcer History of Wound: 77 year old male presented to the wound center due to nonhealing ulcer to left heel. He reports his other ulcer has resolved. He denies fever, chills, nausea, vomiting. He offloads by hanging his foot over a pillow. He wears a modified surgical shoe. He had a venous Doppler with reflux as well as a noninvasive arterial vascular study completed and would like to discuss the results today. He has been offloading with the recommended surgical shoe and pillow while lying in bed. He denies redness to the heel. He denies fever, chill, nausea, vomiting. Progress of Wound: Improving - Physical Exam Vital Signs Temp Pulse Resp BP 97.3 F L 89 18 147/77 H 05/25/18 14:31 05/25/18 14:31 05/25/18 14:31 05/25/18 14:31 General: Alert, Oriented x3, Cooperative Extremities: No cyanosis, Capillary Refill Less than 3 Seconds, No Calf Tenderness - Negative Herminia and Mills sign bilateral, Diminished Peripheral Pulses, Edema - Mild, Tenderness - Decreased pain with ulcer manipulation and debridement Skin: Ulcer/ Wound - No purulence, erythema, streaking, odor, or infection. He does have peripheral atrophic and hairless skin. There is increased granulation tissue in size reduction of the ulcer with peripheral epithelialization. There is no eschar or probing to deeper exposed tissue. Wound Measurements and Assessment WC - Nurse 1 - General Ulcer Measurement Start: 11/07/18 14:45 Freq: Status: Active Protocol: Activity Type Activity Date Activity User E-Sign Co-Sign Detail Recorded Client Recorded Date Recorded By Document 05/25/18 14:31 DL [id number] 05/25/18 14:38 DL 05/25/18 14:31 Wound Center Nurse 1 [Ulcer Assessment] #1 L Heel -Current Size (cm) - Length 0.8 -Current Size (cm) - Width 0.8 -Current Size (cm) - Depth 0.2 -Total Square Cm 0.64 -Photo Taken No -Exudate Amt Small (1-33%) -Exudate Type Serosanguineous -Wound Margin Distinct, Outline Attached -Granulation Amt Small (1-33%) -Granulation Quality [place] -Necrosis Amt Small (1-33%) -Necrotic Tissue Type Adherent Slough -Structure Exposed N/A -Texture (Terri-wound Skin Appearance) Scarring -Moisture (Terri-wound Skin Appearance No Abnormality ) -Color (Terri-wound Skin Appearance) No Abnormality -Temperature (Terri-wound Skin No Abnormality Appearance) (Pt Warm) -Ulcer Cleansing Rinsed/ Irrigated with Saline -Foul Odor after Cleansing No -Anesthetic Used 4% Lidocaine Solution [Edema Assessment] -Left Calf (cm) 34.4 -Left Ankle (cm) 21.4 WC - Nurse 2 - General Ulcer CM Notes Start: 05/18/18 14:45 Freq: Status: Active Protocol: Activity Type Activity Date Activity User E-Sign Co-Sign Detail Recorded Client Recorded Date Recorded By Document 05/25/18 15:08 [id number] 05/25/18 15:09 05/25/18 15:08 Wound Center Nurse 2 [Procedure/Treatment] #1 L Heel -Time 15:08 -Correct Patient Yes -Correct Side, Site, Position Yes -Correct Procedure Yes -Procedure Performed Yes -Type of Procedure Debridement -Clinical Debridement Subcutaneous -Post Debridement Size (cm) - Length 0.9 -Post Debridement Size (cm) - Width 0.5 -Post Debridement Size (cm) - Depth 0.2 -Total Square Cm 0.45 -Wound/Ulcer Outcome Not Healed -Ulcer Cleansing Rinsed/ Irrigated with Saline -Foul Odor after Cleansing No -Bioengineered Tissue No -Bleeding Controlled with Pressure -Treatment Response Procedure Tolerated Well [See Physician Procedure note for Specifics] Pain Scale: 0-10 Numeric [Pain] -Is Patient Pain Free? Yes Musculoskeletal: No Tenderness to Palpation of Joints or Extremities, Muscle Wasting Neurological: Sensory exam intact to light touch and pain, - Psych/Mental Status: Normal Affect, Appropriate Debridement Note Post-Debridement Measurements/Treatment - Nurse 2 - General Ulcer CM Notes Start: 05/18/18 14:45 Freq: Status: Active Protocol: Activity Type Activity Date Activity User E-Sign Co-Sign Detail Recorded Client Recorded Date Recorded By Document 05/18/18 15:33 [id number] 05/18/18 15:37 Document 05/25/18 15:08 [id number] 05/25/18 15:09 05/18/18 05/25/18 15:33 15:08 Wound Center Nurse 2 #1 L Heel -Time 15:33 15:08 -Correct Patient Yes Yes -Correct Side, Site, Position Yes Yes -Correct Procedure Yes Yes -Procedure Performed Yes Yes -Type of Procedure Debridement Debridement -Clinical Debridement Subcutaneous Subcutaneous -Post Debridement Size (cm) - Length 0.9 0.9 -Post Debridement Size (cm) - Width 1.0 0.5 -Post Debridement Size (cm) - Depth 0.2 0.2 -Total Square Cm 0.90 0.45 -Wound/Ulcer Outcome Not Healed Not Healed -Ulcer Cleansing Rinsed/ Rinsed/ Irrigated with Irrigated with Saline Saline -Foul Odor after Cleansing No No -Bioengineered Tissue No No -Bleeding Controlled with Pressure Pressure -Treatment Response Procedure Procedure Tolerated Well Tolerated Well Pain Scale: 0-10 Numeric Is Patient Pain Free? Yes Yes Wound debrided: posterior heel Laterality: Left Type of Debridement: Excisional debridement Anesthesia Used: 4% Lidocaine Solution Depth: in the subcutaneous layer Percentage of wound debrided: 100 Instrument Used: #15 blade Tissue Removed: fibrous, devitalized subcutaneous, biofilm, slough Severity: Fat Layer Exposed Amount of bleeding with debridement: Mild Bleeding Controlled with: Pressure Patient tolerated procedure well Assessment/Plan Active Problems (Last Reviewed 04/05/18 @ 13:05 by Kat Garcia) Peripheral vascular disease (Chronic) Malnutrition (Chronic) Delayed wound healing (Chronic) 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 delayed healing. malnutrition. other comorbidities Plan: The patient was seen and examined at the wound center today and was updated on the plan of care. Debridement was performed as noted in the clinical panel. To continue donut offloading pillow. He did obtain an offloading pillow however I do not recommend using this because there is still significant pressure applied to the ulcer site. It is noted in the meantime he has been hanging his heel over pillows to float the site in the air which is also appropriate. The xray of the heel/foot was reviewed which showed calcaneal spur, no gas, no osseous destruction or acute fractures/discloations. Discussed importance of off loading mechanisms and interventions and risks. to change dressing with hydrogel with collagen. Planned debridements at follow up are scheduled and advanced product application is encouraged. He was approved for application of advanced wound care product, epi fix, however he is suspecting that the [id number] cost is still too high and he refuses today. Clinical progress has been noted and is slow going. Pre-albumin and ESR ordered previously and ESR elevated at 54 and prealbumin low at 14, discussed using 2-3 premier protein shakes per day. additional baseline labs were ordered; cbc, cmp. Vascular studies including noninvasive arterial were reviewed. This is elevated on the right lower extremity suggesting calcification of the arteries. There are biphasic and triphasic waveforms to bilateral lower extremities. There is no evidence of critical limb ischemia however these results are elevated and referral will be considered if lack of healing is noted. The right ankle-brachial index is 1.74 and left is 1.18. The right digital brachial index is 0.67 and left is 0.37. The venous Doppler with reflux evaluation was also reviewed with competent veins noted and it is also noted on the left lower extremity that the great saphenous vein has been harvested. There was no evidence of deep venous thrombosis. Surgical shoe was fitted and dispensed and offloading pads were applied to eliminate pressure to the posterior heel ulcer; to avoid wearing closed shoes that press on this site. Patient educated on the importance of diet on wound healing and instructed to increase protein and vitamin C intake. Patient verbalized understanding. Patient will follow up at wound healing center in one week or sooner if needed. I answered all his questions.
[2018-06-08 15:08] VITALS: BP 121/58; PULSE 83; RESP 18; TEMP 37.3
--- NOTE | 2018-06-08 15:45 | PN.PCM_ITS ---
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 Status: Chronic Current Visit: Yes Qualifiers: Laterality: left Qualified Code(s): L97.422 - Non-pressure chronic ulcer of left heel and midfoot with fat layer exposed Code(s): L97.402 - Non-pressure chronic ulcer of unspecified heel and midfoot with fat layer exposed (2) Peripheral vascular disease Status: Chronic Current Visit: Yes Code(s): I73.9 - Peripheral vascular disease, unspecified (3) Malnutrition Status: Chronic Current Visit: Yes Code(s): E46 - Unspecified protein- calorie malnutrition (4) Delayed wound healing Status: Chronic Current Visit: Yes Code(s): T14.8XXD - Other injury of unspecified body region, subsequent encounter Type of Wound Date of Service: 06/08/18 Chief Complaint: left heel ulcer History of Wound: 77 year old male presented to the wound center due to nonhealing ulcer to left heel. He reports his other ulcer has resolved. He denies fever, chills, nausea, vomiting. He offloads by hanging his foot over a pillow. He wears a modified surgical shoe. He had a venous Doppler with reflux as well as a noninvasive arterial vascular study completed . He has been offloading with the recommended surgical shoe and pillow while lying in bed. He denies redness to the heel. He denies fever, chill, nausea, vomiting. Progress of Wound: Improving - Physical Exam Vital Signs Temp Pulse Resp BP 99.1 F 83 18 121/58 H 06/08/18 15:08 06/08/18 15:08 06/08/18 15:08 06/08/18 15:08 General: Alert, Oriented x3, Cooperative Extremities: No cyanosis, Capillary Refill Less than 3 Seconds, No Calf Tenderness - Negative Herminia and Mills sign bilateral, Diminished Peripheral Pulses, Edema - Mild, Tenderness - Decreased also manipulation palpation pain Skin: Ulcer/ Wound - No purulence, erythema streaking, odor, or infection or deep tissue exposure. Peripheral skin is hairless and atrophic Wound Measurements and Assessment WC - Nurse 1 - General Ulcer Measurement Start: 05/18/18 14:45 Freq: Status: Active Protocol: Activity Type Activity Date Activity User E-Sign Co-Sign Detail Recorded Client Recorded Date Recorded By Document 06/08/18 15:08 [facility] [id number] 06/08/18 15:10 [facility] 06/08/18 15:08 Wound Center Nurse 1 [Ulcer Assessment] #1 L Heel -Combined with other wound No -Current Size (cm) - Length 0.3 -Current Size (cm) - Width 0.6 -Current Size (cm) - Depth 0.1 -Total Square Cm 0.18 -Photo Taken No -Epithelialization Small 1-33% -Tunneling No -Undermining/Tunneling No -Circular Undermining No -Exudate Amt Small (1-33%) -Exudate Type Serosanguineous -Wound Margin Distinct, Outline Attached -Granulation Amt Medium (34-66%) -Granulation Quality Abernathy -Slough/Fibrin Yes -Necrosis Amt Medium (34-66%) -Necrotic Tissue Type Adherent Slough -Texture (Terri-wound Skin Appearance) Scarring -Moisture (Terri-wound Skin Appearance Dry/Scaly ) -Color (Terri-wound Skin Appearance) Assessed -Temperature (Terri-wound Skin No Abnormality Appearance) (Pt Warm) -Tenderness on Palpation (Terri-wound No Skin Appearance) -Ulcer Cleansing Rinsed/ Irrigated with Saline -Foul Odor after Cleansing No -Anesthetic Used 5% Lidocaine Gel [Edema Assessment] -Lower Limb Edema Present No -Left Calf (cm) 35.5 -Left Ankle (cm) 22.1 WC - Nurse 2 - General Ulcer CM Notes Start: 05/18/18 14:45 Freq: Status: Active Protocol: Activity Type Activity Date Activity User E-Sign Co-Sign Detail Recorded Client Recorded Date Recorded By Document 06/08/18 15:42 [id number] 06/08/18 15:44 06/08/18 15:42 Wound Center Nurse 2 [Procedure/Treatment] #1 L Heel -Time 15:43 -Correct Patient Yes -Correct Side, Site, Position Yes -Correct Procedure Yes -Procedure Performed Yes -Type of Procedure Debridement -Clinical Debridement Subcutaneous -Post Debridement Size (cm) - Length 0.3 -Post Debridement Size (cm) - Width 0.6 -Post Debridement Size (cm) - Depth 0.1 -Total Square Cm 0.18 -Wound/Ulcer Outcome Not Healed -Ulcer Cleansing Rinsed/ Irrigated with Saline -Foul Odor after Cleansing No -Bioengineered Tissue No -Bleeding Controlled with Pressure -Offloading Yes -Type of Offloading Surgical Shoe -Treatment Response Procedure Tolerated Well [See Physician Procedure note for Specifics] Pain Scale: 0-10 Numeric [Pain] -Is Patient Pain Free? Yes Musculoskeletal: No Tenderness to Palpation of Joints or Extremities, Muscle Wasting Neurological: Sensory exam intact to light touch and pain Psych/Mental Status: Normal Affect, Appropriate Debridement Note Post-Debridement Measurements/Treatment WC - Nurse 2 - General Ulcer CM Notes Start: 05/18/18 14:45 Freq: Status: Active Protocol: Activity Type Activity Date Activity User E-Sign Co-Sign Detail Recorded Client Recorded Date Recorded By Document 05/18/18 15:33 [id number] 05/18/18 15:37 Document 05/25/18 15:08 [email or web address] 05/25/18 15:09 Document 06/08/18 15:42 [id number] 06/08/18 15:44 05/18/18 05/25/18 06/08/18 15:33 15:08 15:42 Wound Center Nurse 2 #1 L Heel -Time 15:33 15:08 15:43 -Correct Patient Yes Yes Yes -Correct Side, Site, Position Yes Yes Yes -Correct Procedure Yes Yes Yes -Procedure Performed Yes Yes Yes -Type of Procedure Debridement Debridement Debridement -Clinical Debridement Subcutaneous Subcutaneous Subcutaneous -Post Debridement Size (cm) - Length 0.9 0.9 0.3 -Post Debridement Size (cm) - Width 1.0 0.5 0.6 -Post Debridement Size (cm) - Depth 0.2 0.2 0.1 -Total Square Cm 0.90 0.45 0.18 -Wound/Ulcer Outcome Not Healed Not Healed Not Healed -Ulcer Cleansing Rinsed/ Rinsed/ Rinsed/ Irrigated with Irrigated with Irrigated with Saline Saline Saline -Foul Odor after Cleansing No No No -Bioengineered Tissue No No No -Bleeding Controlled with Pressure Pressure Pressure -Offloading Yes -Type of Offloading Surgical Shoe -Treatment Response Procedure Procedure Procedure Tolerated Well Tolerated Well Tolerated Well Pain Scale: 0-10 Numeric Is Patient Pain Free? 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 delayed healing. malnutrition. other comorbidities Plan: The patient was seen and examined at the wound center today and was u pdated on the plan of care. Debridement was performed as noted in the clinical panel. To continue donut offloading pillow. To improve offloading as previously discussed. The xray of the heel/foot was reviewed which showed calcaneal spur, no gas, no osseous destruction or acute fractures/discloations. Discussed importance of off loading mechanisms and interventions and risks. to change dressing with hydrogel with collagen. Planned debridements at follow up are scheduled and advanced product application is encouraged. He was approved for application of advanced wound care product, epi fix, however he is suspecting that the [id number] cost is still too high and he refuses today. Clinical progress has been noted and is slow going. Pre-albumin and ESR ordered previously and ESR elevated at 54 and prealbumin low at 14, discussed using 2-3 premier protein shakes per day. additional baseline labs were ordered; cbc, cmp. Vascular studies including noninvasive arterial were reviewed. This is elevated on the right lower extremity suggesting calcification of the arteries. There are biphasic and triphasic waveforms to bilateral lower extremities. There is no evidence of critical limb ischemia however these results are elevated and referral will be considered if lack of healing is noted. The right ankle-brachial index is 1.74 and left is 1.18. The right digital brachial index is 0.67 and left is 0.37. The venous Doppler with reflux evaluation was also reviewed with competent veins noted and it is also noted on the left lower extremity that the great saphenous vein has been harvested. There was no evidence of deep venous thrombosis. Surgical shoe was fitted and dispensed and offloading pads were applied to eliminate pressure to the posterior heel ulcer; to avoid wearing closed shoes that press on this site. Patient educated on the importance of diet on wound healing and instructed to increase protein and vitamin C intake. Patient verbalized understanding. [employer] will follow up at wound healing center in one week or sooner if needed. I answered all his questions.
== END 2018-06-10 23:59 ==
LOC: WC 14:45
PROVIDERS: Family Provider Student in an Organized Health Care Education/Training Program; PCP Student in an Organized Health Care Education/Training Program; Referring Provider Nurse Practitioner Family; Visit Provider Podiatrist
DX: I73.9 Peripheral vascular disease, unspecified (principal); L97.422 Non-pressure chronic ulcer of left heel and midfoot with fat layer exposed; R60.0 Localized edema
CPT/HCPCS: 11042

== ENCOUNTER 2018-07-06 13:30 | Outpatient (RCR) | payer MEDICARE, SELFPAY ==
[2016-01-28 10:00] VITALS: BMI 30.7
[2018-06-11 01:11] VITALS: BP 121/58; PULSE 83; RESP 18; TEMP 37.3
[2018-06-14 11:33] VITALS: BMI 31.9
[2018-06-15 16:03] VITALS: BP 152/79; PULSE 87; RESP 18; TEMP 36.9; BMI 31.9
--- NOTE | 2018-06-15 16:53 | PN.PCM_ITS ---
(1) Chronic ulcer of left foot with fat layer exposed Status: Chronic Code(s): L97.522 - Non-pressure chronic ulcer of other part of left foot with fat layer exposed (2) Malnutrition Status: Chronic Code(s): E46 - Unspecified protein-calorie malnutrition (3) Delayed wound healing Status: Chronic Code(s): T14.8XXD - Other injury of unspecified body region, subsequent encounter Type of Wound Date of Service: 06/15/18 Chief Complaint: left heel ulcer History of Wound: 77 year old male presented to the wound center due to nonhealing ulcer to left heel. He reports his other ulcer has resolved. He denies fever, chills, nausea, vomiting. He offloads by hanging his foot over a pillow. He wears a modified surgical shoe. He had a venous Doppler with reflux as well as a noninvasive arterial vascular study completed . He has been offloading with the recommended surgical shoe and pillow while lying in bed. Progress of Wound: Improving - Physical Exam Vital Signs Temp Pulse Resp BP 98.4 F 87 18 152/79 H 06/15/18 16:03 06/15/18 16:03 06/15/18 16:03 06/15/18 16:03 General: Alert, Oriented x3, Cooperative Extremities: No cyanosis, Capillary Refill Less than 3 Seconds, No Calf Tenderness - Negative Herminia and Mills sign bilateral, Diminished Peripheral Pulses, Edema - Mild Skin: Ulcer/ Wound - No purulence, erythema, streaking, odor, or infection left lower extremity. The peripheral skin is hairless and atrophic. There is improved granulation tissue to the ulcer site the posterior heel Wound Measurements and Assessment WC - Nurse 1 - General Ulcer Measurement Start: 06/15/18 16:03 Freq: Status: Active Protocol: Activity Type Activity Date Activity User E-Sign Co-Sign Detail Recorded Client Recorded Date Recorded By Document 06/15/18 16:03 RB [id number] 06/15/18 16:06 RB 06/15/18 16:03 Wound Center Nurse 1 [Ulcer Assessment] #1 L Heel -Combined with other wound No -Current Size (cm) - Length 0.2 -Current Size (cm) - Width 0.3 -Current Size (cm) - Depth 0.2 -Total Square Cm 0.06 -Photo Taken No -Tunneling No -Undermining/Tunneling No -Circular Undermining No -Exudate Amt Small (1-33%) -Exudate Type Serosanguineous -Wound Margin Distinct, Outline Attached -Granulation Amt Medium (34-66%) -Granulation Quality Perkins -Slough/Fibrin Yes -Necrosis Amt Small (1-33%) -Necrotic Tissue Type Adherent Slough -Structure Exposed N/A -Texture (Terri-wound Skin Appearance) Assessed Callus -Moisture (Terri-wound Skin Appearance Assessed ) -Color (Terri-wound Skin Appearance) Assessed -Temperature (Terri-wound Skin No Abnormality Appearance) (Pt Warm) -Tenderness on Palpation (Terri-wound No Skin Appearance) -Ulcer Cleansing Rinsed/ Irrigated with Saline -Foul Odor after Cleansing No -Anesthetic Used 5% Lidocaine Gel [Edema Assessment] -Lower Limb Edema Present Yes WC - Nurse 2 - General Ulcer CM Notes Start: 06/15/18 16:03 Freq: Status: Active Protocol: Activity Type Activity Date Activity User E-Sign Co-Sign Detail Recorded Client Recorded Date Recorded By Document 06/15/18 16:31 [id number] 06/15/18 16:32 06/15/18 16:31 Wound Center Nurse 2 [Procedure/Treatment] #1 L Heel -Time 16:31 -Correct Patient Yes -Correct Side, Site, Position Yes -Correct Procedure Yes -Procedure Performed Yes -Type of Procedure Debridement -Clinical Debridement Subcutaneous -Post Debridement Size (cm) - Length 0.4 -Post Debridement Size (cm) - Width 0.5 -Post Debridement Size (cm) - Depth 0.1 -Total Square Cm 0.20 -Wound/Ulcer Outcome Not Healed -Ulcer Cleansing Rinsed/ Irrigated with Saline -Foul Odor after Cleansing No -Bioengineered Tissue No -Bleeding Controlled with Pressure -Offloading No -Treatment Response Procedure Tolerated Well [See Physician Procedure note for Specifics] Pain Scale: 0-10 Numeric [Pain] -Is Patient Pain Free? Yes Musculoskeletal: No Tenderness to Palpation of Joints or Extremities, Muscle Wasting Neurological: - - Lack of normal epicritic sensation light touch left lower extremity Psych/Mental Status: Normal Affect, Appropriate Debridement Note Post-Debridement Measurements/Treatment WC - Nurse 2 - General Ulcer CM Notes Start: 06/15/18 16:03 Freq: Status: Active Protocol: Activity Type Activity Date Activity User E-Sign Co-Sign Detail Recorded Client Recorded Date Recorded By Document 06/15/18 16:31 [id number] 06/15/18 16:32 [email or web address] 06/15/18 16:31 Wound Center Nurse 2 #1 L Heel -Time 16:31 -Correct Patient Yes -Correct Side, Site, Position Yes -Correct Procedure Yes -Procedure Performed Yes -Type of Procedure Debridement -Clinical Debridement Subcutaneous -Post Debridement Size (cm) - Length 0.4 -Post Debridement Size (cm) - Width 0.5 -Post Debridement Size (cm) - Depth 0.1 -Total Square Cm 0.20 -Wound/Ulcer Outcome Not Healed -Ulcer Cleansing Rinsed/ Irrigated with Saline -Foul Odor after Cleansing No -Bioengineered Tissue No -Bleeding Controlled with Pressure -Offloading No -Treatment Response Procedure Tolerated Well Pain Scale: 0-10 Numeric Is Patient Pain Free? Yes Wound debrided: posterior heel Laterality: Left Type of Debridement: Excisional debridement Anesthesia Used: 5% Lidocaine Gel Depth: in the subcutaneous layer Percentage of wound debrided: 100 Instrument Used: #15 blade Tissue Removed: devitalized subcutaneous, biofilm, slough, fibrous Severity: Fat Layer Exposed Amount of bleeding with debridement: Mild Bleeding Controlled with: Pressure Patient tolerated procedure well Assessment/Plan Assessment: ulcer heel with fat layer exposed. 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 delayed healing. malnutrition. other comorbidities Plan: The patient was seen and examined at the wound center today and was upda bolivar on the plan of care. Debridement was performed as noted in the clinical panel. To continue donut offloading pillow. To improve offloading as previously discussed. The xray of the heel/foot was reviewed which showed calcaneal spur, no gas, no osseous destruction or acute fractures/discloations. Discussed importance of off loading mechanisms and interventions and risks. to change dressing with hydrogel with collagen. Planned debridements at follow up are scheduled and advanced product application is encouraged. He was approved for application of advanced wound care product, epi fix, however he is suspecting that the [id number] cost is still too high and he refuses today. Clinical progress has been noted and is slow going. Pre-albumin and ESR ordered previously and ESR elevated at 54 and prealbumin low at 14, discussed using 2-3 premier protein shakes per day. additional baseline labs were ordered; cbc, cmp. Vascular studies including noninvasive arterial were reviewed. This is elevated on the right lower extremity suggesting calcification of the arteries. There are biphasic and triphasic waveforms to bilateral lower extremities. There is no evidence of critical limb ischemia however these results are elevated and referral will be considered if lack of healing is noted. The right ankle-brachial index is 1.74 and left is 1.18. The right digital brachial index is 0.67 and left is 0.37. The venous Doppler with reflux evaluation was also reviewed with competent veins noted and it is also noted on the left lower extremity that the great saphenous vein has been harvested. There was no evidence of deep venous thrombosis. Surgical shoe was fitted and dispensed and offloading pads were applied to eliminate pressure to the posterior heel ulcer at a previous visit; to avoid wearing closed shoes that press on this site. Patient educated on the importance of diet on wound healing and instructed to increase protein and vitamin C intake. Patient verbalized u nderstanding. Patient will follow up at wound healing center in one week or sooner if needed. I answered all his questions.
[2018-06-22 14:24] VITALS: BP 123/74; PULSE 93; RESP 16; TEMP 36.6; BMI 31.9
--- NOTE | 2018-06-22 16:29 | PN.PCM_ITS ---
(1) Chronic ulcer of left foot with fat layer exposed Status: Resolved Current Visit: Yes Code(s): L97.522 - Non-pressure chronic ulcer of other part of left foot with fat layer exposed (2) Malnutrition Status: Chronic Current Visit: Yes Code(s): E46 - Unspecified protein- calorie malnutrition (3) Delayed wound healing Status: Chronic Current Visit: Yes Code(s): T14.8XXD - Other injury of unspecified body region, subsequent encounter Type of Wound Date of Service: 06/22/18 Chief Complaint: left heel ulcer History of Wound: 77 year old male presented to the wound center due to nonhealing ulcer to left heel. He reports his other ulcer has resolved. He denies fever, chills, nausea, vomiting. He offloads by hanging his foot over a pillow. He wears a modified surgical shoe. He had a venous Doppler with reflux as well as a noninvasive arterial vascular study completed . He has been offloading with the recommended surgical shoe and pillow while lying in bed. He denies drainage this past week. Progress of Wound: Healed today - Physical Exam Vital Signs Temp Pulse Resp BP 97.8 F 93 16 123/74 H 06/22/18 14:24 06/22/18 14:24 06/22/18 14:24 06/22/18 14:24 General: Alert, Oriented x3, Cooperative Extremities: No cyanosis, Capillary Refill Less than 3 Seconds, No Calf Tenderness - Negative Herminia and Mills sign, Diminished Peripheral Pulses, Edema - Mild Skin: Ulcer/ Wound - No purulence, erythema, streaking, odor, or infection. There is full epithelialization noted after skin peeling was cleared away. His skin is atrophic and hairless. Wound Measurements and Assessment WC - Nurse 1 - General Ulcer Measurement Start: 06/15/18 16:03 Freq: Status: Active Protocol: Activity Type Activity Date Activity User E-Sign Co-Sign Detail Recorded Client Recorded Date Recorded By Document 06/22/18 14:24 CS [id number] 06/22/18 14:25 CS 06/22/18 14:24 Wound Center Nurse 1 [Ulcer Assessment] #1 L Heel -Combined with other wound No -Current Size (cm) - Length 0.1 -Current Size (cm) - Width 0.1 -Current Size (cm) - Depth 0.1 -Total Square Cm 0.01 -Photo Taken No -Epithelialization None Present -Tunneling No -Undermining/Tunneling No -Circular Undermining No -Exudate Amt Small (1-33%) -Exudate Type Serosanguineous -Wound Margin Distinct, Outline Attached -Granulation Amt Medium (34-66%) -Granulation Quality Pale -Slough/Fibrin Yes -Necrosis Amt None Present (0 %) -Necrotic Tissue Type Adherent Slough -Texture (Terri-wound Skin Appearance) Assessed -Moisture (Terri-wound Skin Appearance Dry/Scaly ) -Color (Terri-wound Skin Appearance) Assessed -Temperature (Terri-wound Skin No Abnormality Appearance) (Pt Warm) -Tenderness on Palpation (Terri-wound No Skin Appearance) -Ulcer Cleansing Rinsed/ Irrigated with Saline -Foul Odor after Cleansing No -Anesthetic Used 4% Lidocaine Solution [Edema Assessment] -Lower Limb Edema Present NA - Nurse 2 - General Ulcer CM Notes Start: 06/15/18 16:03 Freq: Status: Active Protocol: Activity Type Activity Date Activity User E-Sign Co-Sign Detail Recorded Client Recorded Date Recorded By Document 06/22/18 14:37 [id number] 06/22/18 14:37 06/22/18 14:37 Wound Center Nurse 2 [Procedure/Treatment] #1 L Heel -Correct Patient No -Correct Side, Site, Position No -Correct Procedure No -Procedure Performed No -Post Debridement Size (cm) - Length 0 -Post Debridement Size (cm) - Width 0 -Post Debridement Size (cm) - Depth 0 -Total Square Cm 0 -Wound/Ulcer Outcome Healed- Epithelialized [See Physician Procedure note for Specifics] Pain Scale: 0-10 Numeric [Pain] -Is Patient Pain Free? Yes Musculoskeletal: No Tenderness to Palpation of Joints or Extremities, Muscle Wasting Neurological: Sensory exam intact to light touch and pain, - Psych/Mental Status: Normal Affect, Appropriate Debridement Note Post-Debridement Measurements/Treatment - Nurse 2 - General Ulcer Notes Start: 06/15/18 16:03 Freq: Status: Active Protocol: Activity Type Activity Date Activity User E-Sign Co-Sign Detail Recorded Client Recorded Date Recorded By Document 06/15/18 16:31 [id number] 06/15/18 16:32 Document 06/22/18 14:37 [id number] 06/22/18 14:37 06/15/18 06/22/18 16:31 14:37 Wound Center Nurse 2 #1 L Heel -Time 16:31 -Correct Patient Yes No -Correct Side, Site, Position Yes No -Correct Procedure Yes No -Procedure Performed Yes No -Type of Procedure Debridement -Clinical Debridement Subcutaneous -Post Debridement Size (cm) - Length 0.4 0 -Post Debridement Size (cm) - Width 0.5 0 -Post Debridement Size (cm) - Depth 0.1 0 -Total Square Cm 0.20 0 -Wound/Ulcer Outcome Not Healed Healed- Epithelialized -Ulcer Cleansing Rinsed/ Irrigated with Saline -Foul Odor after Cleansing No -Bioengineered Tissue No -Bleeding Controlled with Pressure -Offloading No -Treatment Response Procedure Tolerated Well Pain Scale: 0-10 Numeric Is Patient Pain Free? Yes Yes No debridement was completed today - The ulcer site is healed Assessment/Plan Active Problems (Last Updated 06/14/18 @ 10:59 by Leatha Sue) Malnutrition (Chronic) Delayed wound healing (Chronic) Assessment: ulcer heel, left foot-heel today. 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 delayed healing. malnutrition. other comorbidities Plan: The patient was seen and examined at the wound center today and was updated on the plan of care. Debridement was not performed today because the ulcer site has healed. He was advised to discontinue dressing care and to monitor closely for return of the ulcer and any developing infection. Neither of these things are noted today. To continue donut offloading pillow and surgical shoe with offloading pad to optimize skin remodeling. He understands the site is very friable at this time. To return to the wound healing center 2 weeks for reevaluation and to confirm that the site has remained closed. I recommend this because he is high risk for re-ulceration. I answered all his questions.
[2018-07-06 13:38] VITALS: BP 133/60; PULSE 90; RESP 18; TEMP 37.2; BMI 31.9
--- NOTE | 2018-07-06 14:11 | PCM.WC.PN ---
(1) Chronic ulcer of left foot with fat layer exposed Status: Resolved Current Visit: Yes Code(s): L97.522 - Non-pressure chronic ulcer of other part of left foot with fat layer exposed (2) Type 2 diabetes mellitus with diabetic polyneuropathy Status: Chronic Current Visit: Yes Code(s): E11.42 - Type 2 diabetes mellitus with diabetic polyneuropathy Type of Wound Date of Service: 07/06/18 Chief Complaint: left heel ulcer History of Wound: 77 year old male presented to the wound center due to nonhealing ulcer to left heel that recently healed. He denies drainage or redness. He is continued to perform offloading with surgical shoe. Progress of Wound: Remains healed - Physical Exam Vital Signs Temp Pulse Resp BP 98.9 F 90 18 133/60 H 07/06/18 13:38 07/06/18 13:38 07/06/18 13:38 07/06/18 13:38 General: Alert, Oriented x3, Cooperative Extremities: No cyanosis, Capillary Refill Less than 3 Seconds, No Calf Tenderness - Negative Herminia and Mills sign bilateral, Diminished Peripheral Pulses, Edema - Mild bilateral lower extremities Skin: Ulcer/ Wound - No purulence, erythema, streaking, odor, or infection. The posterior left heel ulcer site remains healed and there is full epithelialization. His skin is atrophic. Wound Measurements and Assessment WC - Nurse 1 - General Ulcer Measurement Start: 06/15/18 16:03 Freq: Status: Active Protocol: Activity Type Activity Date Activity User E-Sign Co-Sign Detail Recorded Client Recorded Date Recorded By Document 07/06/18 13:41 RB [id number] 07/06/18 13:41 RB 07/06/18 13:41 Wound Center Nurse 1 [Edema Assessment] -Lower Limb Edema Present Yes -Left Calf (cm) 35.5 -Left Ankle (cm) 22.5 WC - Nurse 2 - General Ulcer CM Notes Start: 06/15/18 16:03 Freq: Status: Active Protocol: Activity Type Activity Date Activity User E-Sign Co-Sign Detail Recorded Client Recorded Date Recorded By Document 07/06/18 13:55 MILENA [id number] 07/06/18 13:55 07/06/18 13:55 Pain Scale: 0-10 Numeric [Pain] -Is Patient Pain Free? Yes Musculoskeletal: No Tenderness to Palpation of Joints or Extremities, Muscle Wasting Neurological: - - Lack of normal epicritic sensation light touch left lower extremity consistent with neuropathy Psych/Mental Status: Normal Affect, Appropriate Debridement Note Post-Debridement Measurements/Treatment WC - Nurse 2 - General Ulcer CM Notes Start: 06/15/18 16:03 Freq: Status: Active Protocol: Activity Type Activity Date Activity User E-Sign Co-Sign Detail Recorded Client Recorded Date Recorded By Document 06/15/18 16:31 [id number] 06/15/18 16:32 Document 06/22/18 14:37 [id number] 06/22/18 14:37 Document 07/06/18 13:55 [id number] 07/06/18 13:55 06/15/18 06/22/18 07/06/18 16:31 14:37 13:55 Wound Center Nurse 2 #1 L Heel -Time 16:31 -Correct Patient Yes No -Correct Side, Site, Position Yes No -Correct Procedure Yes No -Procedure Performed Yes No -Type of Procedure Debridement -Clinical Debridement Subcutaneous -Post Debridement Size (cm) - Length 0.4 0 -Post Debridement Size (cm) - Width 0.5 0 -Post Debridement Size (cm) - Depth 0.1 0 -Total Square Cm 0.20 0 -Wound/Ulcer Outcome Not Healed Healed- Epithelialized -Ulcer Cleansing Rinsed/ Irrigated with Saline -Foul Odor after Cleansing No -Bioengineered Tissue No -Bleeding Controlled with Pressure -Offloading No -Treatment Response Procedure Tolerated Well Pain Scale: 0-10 Numeric Is Patient Pain Free? Yes Yes Yes No debridement was completed today - The ulcer site remains healed Assessment/Plan Active Problems (Last Updated 06/14/18 @ 10:59 by Leatha Sue) Type 2 diabetes mellitus with diabetic polyneuropathy (Chronic) Malnutrition (Chronic) Delayed wound healing (Chronic) Assessment: ulcer heel, left foot-remains healed today. Diabetes with neuropathy. 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 delayed healing. malnutrition. other comorbidities Plan: The patient was seen and examined at the wound center today and was updated on the plan of care. Debridement was not performed today because the ulcer site has healed. He was advised to discontinue dressing care and to monitor closely for return of the ulcer and any developing infection. Neither of these things are noted today. To continue donut offloading pillow. He was advised to slowly progress back into his diabetic shoes. He is ready for an updated annual extra-depth shoe with insoles. He will [facility], diabetic lower extremity assessment, and to get fitted for extra-depth diabetic shoes with 3 dual density Plastizote liners. This is medically necessary to prevent further ulcer formation. He is discharged from the wound healing center at this time. I answered all his questions.
--- NOTE | 2018-07-06 14:16 | PN.PCM_ITS ---
(1) Chronic ulcer of left foot with fat layer exposed Status: Resolved Current Visit: Yes Code(s): L97.522 - Non-pressure chronic ulcer of other part of left foot with fat layer exposed (2) Type 2 diabetes mellitus with diabetic polyneuropathy Status: Chronic Current Visit: Yes Code(s): E11.42 - Type 2 diabetes mellitus with diabetic polyneuropathy Type of Wound Date of Service: 07/06/18 Chief Complaint: left heel ulcer History of Wound: 77 year old male presented to the wound center due to nonhealing ulcer to left heel that recently healed. He denies drainage or redness. He is continued to perform offloading with surgical shoe. Progress of Wound: Remains healed - Physical Exam Vital Signs Temp Pulse Resp BP 98.9 F 90 18 133/60 H 07/06/18 13:38 07/06/18 13:38 07/06/18 13:38 07/06/18 13:38 General: Alert, Oriented x3, Cooperative Extremities: No cyanosis, Capillary Refill Less than 3 Seconds, No Calf Tenderness - Negative Herminia and Mills sign bilateral, Diminished Peripheral Pulses, Edema - Mild bilateral lower extremities Skin: Ulcer/ Wound - No purulence, erythema, streaking, odor, or infection. The posterior left heel ulcer site remains healed and there is full epithelialization. His skin is atrophic. Wound Measurements and Assessment WC - Nurse 1 - General Ulcer Measurement Start: 06/15/18 16:03 Freq: Status: Active Protocol: Activity Type Activity Date Activity User E-Sign Co-Sign Detail Recorded Client Recorded Date Recorded By Document 07/06/18 13:41 RB [id number] 07/06/18 13:41 RB 07/06/18 13:41 Wound Center Nurse 1 [Edema Assessment] -Lower Limb Edema Present Yes -Left Calf (cm) 35.5 -Left Ankle (cm) 22.5 WC - Nurse 2 - General Ulcer CM Notes Start: 06/15/18 16:03 Freq: Status: Active Protocol: Activity Type Activity Date Activity User E-Sign Co-Sign Detail Recorded Client Recorded Date Recorded By Document 07/06/18 13:55 MILENA [id number] 07/06/18 13:55 07/06/18 13:55 Pain Scale: 0-10 Numeric [Pain] -Is Patient Pain Free? Yes Musculoskeletal: No Tenderness to Palpation of Joints or Extremities, Muscle Wasting Neurological: - - Lack of normal epicritic sensation light touch left lower extremity consistent with neuropathy Psych/Mental Status: Normal Affect, Appropriate Debridement Note Post-Debridement Measurements/Treatment WC - Nurse 2 - General Ulcer CM Notes Start: 06/15/18 16:03 Freq: Status: Active Protocol: Activity Type Activity Date Activity User E-Sign Co-Sign Detail Recorded Client Recorded Date Recorded By Document 06/15/18 16:31 [id number] 06/15/18 16:32 Document 06/22/18 14:37 [id number] 06/22/18 14:37 Document 07/06/18 13:55 [id number] 07/06/18 13:55 06/15/18 06/22/18 07/06/18 16:31 14:37 13:55 Wound Center Nurse 2 #1 L Heel -Time 16:31 -Correct Patient Yes No -Correct Side, Site, Position Yes No -Correct Procedure Yes No -Procedure Performed Yes No -Type of Procedure Debridement -Clinical Debridement Subcutaneous -Post Debridement Size (cm) - Length 0.4 0 -Post Debridement Size (cm) - Width 0.5 0 -Post Debridement Size (cm) - Depth 0.1 0 -Total Square Cm 0.20 0 -Wound/Ulcer Outcome Not Healed Healed- Epithelialized -Ulcer Cleansing Rinsed/ Irrigated with Saline -Foul Odor after Cleansing No -Bioengineered Tissue No -Bleeding Controlled with Pressure -Offloading No -Treatment Response Procedure Tolerated Well Pain Scale: 0-10 Numeric Is Patient Pain Free? Yes Yes Yes No debridement was completed today - The ulcer site remains healed Assessment/Plan Active Problems (Last Updated 06/14/18 @ 10:59 by Leatha Sue) Type 2 diabetes mellitus with diabetic polyneuropathy (Chronic) Malnutrition (Chronic) Delayed wound healing (Chronic) Assessment: ulcer heel, left foot-remains healed today. Diabetes with neuropathy. 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 delayed healing. malnutrition. other comorbidities Plan: The patient was seen and examined at the wound center today and was updated on the plan of care. Debridement was not performed today because the ulcer site has healed. He was advised to discontinue dressing care and to monitor closely for return of the ulcer and any developing infection. Neither of these things are noted today. To continue donut offloading pillow. He was advised to slowly progress back into his diabetic shoes. He is ready for an updated annual extra-depth shoe with insoles. He will follow-up at the [facility], diabetic lower extremity assessment, and to get fitted for extra-depth diabetic shoes with 3 dual density Plastizote liners. This is medically necessary to prevent further ulcer formation. He is discharged from the wound healing center at this time. I answered all his questions.
== END 2018-07-11 23:59 ==
LOC: WC 13:30
PROVIDERS: Family Provider Student in an Organized Health Care Education/Training Program; PCP Student in an Organized Health Care Education/Training Program; Referring Provider Nurse Practitioner Family; Visit Provider Podiatrist
DX: I73.9 Peripheral vascular disease, unspecified (principal); L97.422 Non-pressure chronic ulcer of left heel and midfoot with fat layer exposed; R60.0 Localized edema
CPT/HCPCS: 11042; 99212; G0463

== ENCOUNTER → 2018-10-10 21:33 | Outpatient (CLI) | payer MEDICARE, SELFPAY ==
[2016-01-28 10:00] VITALS: BMI 30.7
[2018-09-20 12:44] VITALS: BMI 31.9
== END ==
PROVIDERS: Family Provider Student in an Organized Health Care Education/Training Program; PCP Student in an Organized Health Care Education/Training Program; Referring Provider Nurse Practitioner Acute Care; Visit Provider Nurse Practitioner Acute Care
DX: G47.30 Sleep apnea, unspecified (principal)
CPT/HCPCS: 95811

== ENCOUNTER → 2018-12-22 10:23 | Outpatient (CLI) | payer MEDICARE, SELFPAY ==
[2016-01-28 10:00] VITALS: BMI 30.7
[2018-09-20 12:44] VITALS: BMI 31.9
--- NOTE | 2018-12-23 10:59 | PFTCOMP_ITS ---
COMPLETE PULMONARY FUNCTION TEST INTERPRETATION Brief HPI: Patient is a 78 year old male, currently under the care of myself, who presents to [facility] for complete pulmonary function tests secondary to diagnosis of COPD. Respiratory therapist reports good effort and reproducible results. Interpretation: Forced expiration spirometry shows no large airways obstructive ventilatory defect with an FEV1 of 58% predicted. There is no significant bronchodilator response by strict ATS criteria. Spirograms are of good quality and plateau normally. The respiratory flow volume loop shows a normal pattern. Lung volumes by body plethysmography show a reduced total lung capacity at 3.63 L, 67% predicted. All other lung volumes are reduced symmetrically. Diffusion capacity by carbon monoxide is at the lower limit of normal at 58% predicted. The airway resistance is elevated. Compared to previous pulmonary function tests from 10/26/2017, there is been a significant reduction in FEV1 and total lung capacity by 13%. Impression: Moderate restrictive ventilatory defect with a symmetric reduction diffusion capacity. There has been some worsening compared to previous study.
== END ==
PROVIDERS: Family Provider Student in an Organized Health Care Education/Training Program; PCP Student in an Organized Health Care Education/Training Program; Referring Provider Nurse Practitioner Acute Care; Visit Provider Nurse Practitioner Acute Care
DX: J44.9 Chronic obstructive pulmonary disease, unspecified (principal)
CPT/HCPCS: 94060; 94726; 94729

== ENCOUNTER → 2018-12-23 11:16 | Outpatient (CLI) | payer MEDICARE, SELFPAY ==
[2016-01-28 10:00] VITALS: BMI 30.7
[2018-09-20 12:44] VITALS: BMI 31.9
--- NOTE | 2018-12-23 12:19 | CPS ---
PATIENT STATES HE HAS OXYGEN ALREADY AT HOME, ARRIVED ON ROOM AIR. BREATHING AT BASELINE STATUS. PT USED WALKER FOR TEST D/T UNSTEADY GATE. HE TOOK 2 REST BREAKS FOR KNEE PAIN, DENIED CHANGE IN RESPIRATORY STATUS. TEST BEGAN ON ROOM AIR WITH PT REQUIRING O2 1 MIN IN TO TEST. REMAINDER OF TEST ON 2LPM
[2018-12-23 12:59] VITALS: PULSE 56; PULSE 60; PULSE 62; PULSE 66; PULSE 70; PULSE 74; PULSE 80; O2SAT 84; O2SAT 92; O2SAT 93; O2SAT 94; O2SAT 95; O2SAT 96
--- NOTE | 2018-12-23 15:17 | WT_ITS ---
PSN 6 Minute Walk Test - 6 Minute Walk Test 6 Minute Walk Test: 6 Minute Walk Test PSN:6-Minute Walk Test Start: 12/23/18 12:01 Freq: Status: Active Protocol: RESP.6MINW Document 12/23/18 12:59 [facility] (Rec: 12/23/18 13:03 [facility] [id number]) 6 Minute Walk Test Date Performed 12/23/18 Time Performed 11:30 Height 5 ft 6 in Weight: 87.09 kg Weight in Pounds 192.[address]: Deepti Sharma Pre-test Oxygen Delivery Method Room Air Pulse Ox (%) 92 Pulse Rate (60-100 beats/min) 56 L Dyspnea Juan Scale (0-10) 2 1st minute Oxygen Delivery Method Room Air Pulse Ox (%) 84 Pulse Rate (60-100 beats/min) 60 Dyspnea Juan Scale (0-10) 2 2nd minute Oxygen Flow Rate (L/min) (L/min) 2 Oxygen Delivery Method Nasal Cannula Pulse Ox (%) 94 Pulse Rate (60-100 beats/min) 66 Dyspnea Juan Scale (0-10) 2 3rd minute Oxygen Flow Rate (L/min) (L/min) 2 Oxygen Delivery Method Nasal Cannula Pulse Ox (%) 96 Pulse Rate (60-100 beats/min) 70 Dyspnea Juan Scale (0-10) 2 4th minute Oxygen Flow Rate (L/min) (L/min) 2 Oxygen Delivery Method Nasal Cannula Pulse Ox (%) 95 Pulse Rate (60-100 beats/min) 74 Dyspnea Juan Scale (0-10) 2 Number of Rests Taken 1 5th minute Oxygen Flow Rate (L/min) (L/min) 2 Oxygen Delivery Method Nasal Cannula Pulse Ox (%) 93 Pulse Rate (60-100 beats/min) 80 Dyspnea Juan Scale (0-10) 2 Number of Rests Taken 1 6th minute Oxygen Flow Rate (L/min) (L/min) 2 Oxygen Delivery Method Nasal Cannula Pulse Ox (%) 94 Pulse Rate (60-100 beats/min) 80 Dyspnea Juan Scale (0-10) 2 Post-test Oxygen Delivery Method Room Air Pulse Ox (%) 93 Pulse Rate (60-100 beats/min) 62 Dyspnea Juan Scale (0-10) 2 Full Laps Walked 6 Partial Lap, Number of Tiles Walked 27 Total Distance Walked (ft) 381 - Interpretation Interpretation: The patient was noted to be 92% on room air. The patient did not desaturate in the first minute of ambulation to 84%. Saturations improved to 94% with addition of 2 L nasal cannula. The patient was then able to finish ambulation. In total, patient was able to travel 381 feet over the course of 6 minutes with the assistance of a walker and two breaks. These findings are consistent with a respiratory limitation exercise tolerance. - Recommendations Recommendations: Patient requires no supplemental oxygen at rest, but should be using 2 L nasal cannula with any exertion.
== END ==
PROVIDERS: Family Provider Student in an Organized Health Care Education/Training Program; PCP Student in an Organized Health Care Education/Training Program; Referring Provider Nurse Practitioner Acute Care; Visit Provider Nurse Practitioner Acute Care
DX: J44.9 Chronic obstructive pulmonary disease, unspecified (principal)
CPT/HCPCS: 94618

== ENCOUNTER → 2019-06-27 12:45 | Outpatient (CLI) | payer MEDICARE, SELFPAY ==
[2016-01-28 10:00] VITALS: BMI 30.7
[2019-04-04 14:44] VITALS: BMI 33.2
--- NOTE | 2019-06-27 12:50 | RAD_ITS ---
STUDY: X-RAY CHEST REASON FOR EXAM: Male, 78 years old. Shortness of breath. TECHNIQUE: PA and lateral views of the chest. COMPARISON: 02/23/2018. FINDINGS: There is a left-sided dual-lead pacemaker in place. There is elevation of the right hemidiaphragm. There is minimal right basilar atelectasis, remainder of the lungs are clear and slightly underexpanded. There is no demonstrated pleural abnormality. Heart is mildly enlarged with midline sternotomy wires and suggestion of CABG repair. Normal mediastinum and sadiq. Normal visualized pulmonary arteries. Normal visualized aortic arch and descending thoracic aorta. There is demineralization of the osseous structures. Normal visualized ribs, clavicles, and shoulders. There is no demonstrated abnormality of the visualized soft tissue structures of the upper abdomen. RAD/Chest PA and Lateral IMPRESSION: Minimal right basilar atelectasis, otherwise no acute cardiopulmonary process seen. Electronically Signed: Sharon Garcia MD at 1:43 EST , Service support ,
== END ==
PROVIDERS: Family Provider Student in an Organized Health Care Education/Training Program; PCP Student in an Organized Health Care Education/Training Program; Referring Provider Nurse Practitioner Acute Care; Visit Provider Nurse Practitioner Acute Care
DX: J44.9 Chronic obstructive pulmonary disease, unspecified (principal)
CPT/HCPCS: 71046

== ENCOUNTER → 2019-06-27 14:12 | Outpatient (CLI) | payer MEDICARE, SELFPAY ==
[2016-01-28 10:00] VITALS: BMI 30.7
[2019-06-27 13:31] VITALS: BMI 33.2
[2019-06-27 14:51] LABS: Anion Gap 2 (5-15); BUN 28 mg/dL (7-18); BUN/Creat Ratio 17.8 RATIO (10-20); Calcium,Total 8.4 mg/dL (8.5-10.1); Chloride 104 mmol/L (98-107); Creatinine, Serum 1.57 mg/dL (0.70-1.30); EST Glomerular Filtration Rate 45 mL/min (>60); Est Glom Filt Rate - Afr Amer 55 mL/min (>60); Glucose 270 mg/dL (74-106); Potassium 4.5 mmol/L (3.5-5.1); Sodium Level 139 mmol/L (136-145)
[2019-06-27 14:58] LABS: BNP,B-Type NATRIURETIC PEPTIDE 460.7 pg/mL (0-100)
== END ==
PROVIDERS: Family Provider Student in an Organized Health Care Education/Training Program; PCP Student in an Organized Health Care Education/Training Program; Referring Provider Nurse Practitioner Acute Care; Visit Provider Nurse Practitioner Acute Care
DX: J44.9 Chronic obstructive pulmonary disease, unspecified (principal)
CPT/HCPCS: 36415; 71046; 80048; 83880

== ENCOUNTER → 2019-07-04 11:00 | Outpatient (CLI) | payer MEDICARE, SELFPAY ==
[2016-01-28 10:00] VITALS: BMI 30.7
[2018-09-20 12:44] VITALS: BMI 31.9
== END ==
PROVIDERS: Family Provider Student in an Organized Health Care Education/Training Program; PCP Student in an Organized Health Care Education/Training Program; Referring Provider Nurse Practitioner Acute Care; Visit Provider Nurse Practitioner Acute Care
DX: Z46.89 Encounter for fitting and adjustment of other specified devices (principal)
CPT/HCPCS: 98960; G0463

== ENCOUNTER 2019-08-04 18:35 | Inpatient (IN) | payer MEDICARE, SELFPAY ==
[2016-01-28 10:00] VITALS: BMI 30.7
[2019-07-19 13:16] VITALS: BMI 34.7
[2019-08-04] VITALS (7 sets, daily range): BP systolic 147–160; BP diastolic 77–86; PULSE 63–71; RESP 16–20; TEMP 36.7–36.8; O2SAT 89–97; BMI 34.2; BMI 34.7
--- NOTE | 2019-08-04 19:33 | EKG12_ITS ---
Test Reason : SOB Blood Pressure : / mmHG Vent. Rate : 066 BPM Atrial Rate : 066 BPM P-R Int : 162 ms QRS Dur : 152 ms QT Int : 444 ms P-R-T Axes : 012 -50 -14 degrees QTc Int : 465 ms Normal sinus rhythm Left axis deviation Right bundle branch block Inferior infarct , age undetermined Abnormal ECG Confirmed by CHELA CHOU, MURIEL ([id number]), online editor RAIMUNDO RAMIREZ ([id number]) on 08/07/2019 12:17:26 PM Referred By: Noah Jean Confirmed By:MURIEL YORK MD
--- NOTE | 2019-08-04 19:33 | CT_ITS ---
HISTORY: FALLS, DIZZINESS, H/O CVA X 3. Pt has hx of pacer, diabetes, HTN, UT and sleep apnea Technique:CT Head or Brain W/O Contrast Injection Number of Images including paperwork:265 Comparison: None available. Findings: CT images of the head were obtained without contrast. Periventricular deep and subcortical white matter disease is present. Paranasal sinuses are clear. The brain is atrophic. Calcific ASCVD involves intracranial arteries. No acute intracranial edema or hemorrhage. No acute abnormality of orbits. Middle ear cavities and mastoid air cells are well aerated. Skull is normal. CT/Brain/Head without Contrast IMPRESSION: No acute intracranial abnormality. Chronic changes as above. ASPECT 10. Individualized dose optimization techniques were used for this CT. at 2031 Reported and signed by: Darryl Deluca MD Electronically Signed: Darryl Deluca MD at 20:30 EST Tel , Service support ,
--- NOTE | 2019-08-04 19:55 | RAD_ITS ---
HISTORY: shortness of breath and dizziness EXAM: XR Chest 2 Views: COMPARISON: June 27, 2019 FINDINGS: # of images incl. paperwork: 2 Dual lead left subclavian approach left chest wall cardiac pacer lead. Sternal wires. Mediastinal clips. Aortic arch calcifications. Elevation of the right hemidiaphragm. Likely basilar atelectasis. Heart is borderline enlarged. Mild dextroscoliosis and shoulder arthritis. Previous right shoulder rotator cuff repair Pulmonary vascularity is distinct. Possible right pleural effusions. RAD/Chest PA and Lateral IMPRESSION: No change. Cardiomegaly. 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 at 2036 Reported and signed by: Darryl Deluca MD Electronically Signed: Darryl Deluca MD at 20:35 EST Tel , Service support ,
[2019-08-04 19:57] LABS: Absolute Lymphocyte Count 1.71 X10^3/uL (0.83-4.51); Absolute Neutrophil Count 2.6 X10^3/uL (2.0-7.7); Basophil# 0.02 X10^3/uL; Basophil% 0.4 % (0-1); Eosinophil# 0.08 X10^3/uL; Eosinophils% 1.6 % (0-5); Hematocrit 37.3 % (40-54); Hemoglobin 11.3 g/dL (13.0-16.5); Lymphocyte # 1.71 X10^3/ul (4.0); Lymphocyte % 33.6 % (19-41); Mean Corp Hgb Conc 30.3 g/dL (32-36); Mean Corpuscular Hgb 30.8 pg (27.0-32.0); Mean Corpuscular Volume 101.6 fL (80-94); Mean Platelet Vol. 10.9 fl (6.2-12.0); Monocyte# 0.67 X10^3/uL; Monocyte% 13.2 % (0-10); NRBC Flagged by Analyzer 0 % (0-5); Neutrophil # 2.58 X10^3/uL (2.7-7.7); Neutrophil % 50.6 % (47-70); POSITIVE COUNT YES; Platelet Count 218 K/mm3 (150-450); RBC Distribution Width CV 15.1 % (11.6-14.6); RBC Distribution Width SD 56.2 fl (35.1-43.9); Red Blood Count 3.67 M/mm3 (4.6-6.2); White Blood Count 5.1 K/mm3 (4.4-11.0)
--- NOTE | 2019-08-04 20:29 | ED.DCSUM_ITS ---
History of Present Illness Chief Complaint: Shortness of Breath Informant: Patient Onset: Days Context: Gradual Onset Timing: Intermittent Narrative: Is a 78-year-old male with history of CHF and 2 L nasal cannula dependency presenting with worsening dizziness and multiple falls. Patient has had dizziness over the past few weeks. He has had falls almost weekly. He lost his head about a week ago. Patient uses a walker at baseline. He states his feet get stuck up and he is falling. He denies any syncopal episodes. Patient has been very sleepy today. was concerned because the phone ringing and the dog barking did not wake him up. This is new for him. Patient came to the ER on his 2 L concentrator and his oxygen was 84% when he arrived. Patient does have a history obstructive sleep apnea and states he is been compliant to his BiPAP. Patient notes his research hydraulic engineer, Dr. Morfin, has placed him on Lasix for the past month because of concern for CHF. Patient notes he had a cough for the past 2 months which is unchanged. He does not have any associated chest pain or fever. Patient denies any other complaints at this time. He is not noticed any increased swelling of his lower extremities. Past Medical History - Allergies and Home Meds Allergies/Adverse Reactions: Allergies adhesive Allergy (Verified 08/04/19 18:36) Rash Beef Containing Products Allergy (Verified 08/04/19 18:36) Other cortisone Allergy (Verified 08/04/19 18:36) Other NOVACAINE Allergy (Uncoded 08/04/19 18:36) Other Past Medical History: - - Respiratory failure, CKD 3, history of stroke, coronary artery disease, peripheral vascular disease, pulmonary hypertension, obstructive sleep apnea, stage II COPD, type 2 diabetes mellitus Surgical History: cataract - bilateral, coronary bypass surgery - 199 X 4 vessels, pacemaker implantation Smoking Status: Never smoker - Family History Maternal Family History: Family History (Last Reviewed 07/19/19 @ 14:44 by Jas Momin MD) Father Heart disease Mother Lung cancer Family History: Reports: Cancer - breast Paternal Family History: Family History (Last Reviewed 07/19/19 @ 14:44 by Jas Momin MD) Father Heart disease Mother Lung cancer Family History: Reports: Diabetes, Heart Disease, Hypertension Review of Systems General: Reports: Chills, Malaise, - - Dizziness. Denies: Fever, Sweats Eyes: Denies: Visual changes - bilaterally, Diplopia ENT: Denies: Rhinorrhea, Sore throat Cardiovascular: Denies: Chest pain, Palpitations Respiratory: Reports: Dyspnea, Cough, Dyspnea on exertion. Denies: Sputum Gastrointestinal: Denies: Abdominal pain, Nausea, Vomiting, Diarrhea, Melena, Hematochezia Genitourinary: Denies: Dysuria, Hematuria, Frequency Musculoskeletal: Denies: Back pain, Extremity Pain Skin: Denies: Rash, Wounds Neurological: Denies: Headache, Weakness, Numbness Physical Exam Vital Signs/Narrative: Vital Signs Temp Pulse Resp BP Pulse Ox 08/04/19 20:27 69 16 97 08/04/19 18:45 71 18 95 08/04/19 18:36 98.3 F 63 20 H 147/86 H 89 Inital Vital Signs reviewed: Yes General: Well nourished, Well developed, No Acute Distress Head: Normocephalic, Atraumatic Eyes: Perrl, EOMI ENT: Moist mucous membranes, No rhinorrhea, TM's clear Neck: Supple, Nontender, No JVD Cardiovascular: Regular rate, Regular rhythm, No murmurs. Negative for: Murmur Respiratory: No distress, CTA bilaterally, Chest nontender, Diminished - Basilar, - - Bibasilar crackles, more pronounced at the left base. Negative for: Wheezing Abdomen: Soft, Nontender, Nondistended, Normal bowel sounds Back: Nontender, Normal Inspection Extremities: Nontender, No edema Skin: Normal color, No rash Neurological: Alert, Oriented x3, Cranial nerves II-XII grossly intact, Normal Strength, Normal Sensation Psychological: Normal affect, Normal Mood Diagnostic/Tx/Re-eval Chest X-Ray - ED: 1 View, Read by ED Physician, Read by Radiologist, No Acute Disease Clinical Impression(s) from Imaging Studies Brain CT 08/04/19 19:33 IMPRESSION: No acute intracranial abnormality. Chronic changes as above. ASPECT 10. Individualized dose optimization techniques were used for this CT. at 2031 Reported and signed by: Darryl Deluca MD Electronically Signed: Darryl Deluca MD at 20:30 EST Tel , Service support , Chest X-Ray 08/04/19 19:55 IMPRESSION: No change. Cardiomegaly. 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 at 2036 Reported and signed by: Darryl Deluca MD Electronically Signed: Darryl Deluca MD at 20:35 EST Tel , Service support , Chest CT 08/04/19 22:52 IMPRESSION: Cardiomegaly with pulmonary edema and small pleural effusions likely suggestive of CHF Individualized dose optimization techniques were used for this CT. at 0041 Reported and signed by: Darryl Deluca MD Electronically Signed: Darryl Deluca MD at 0:39 EST Tel , Service support , Laboratory Data 08/04/19 08/04/19 08/04/19 19:45 19:45 19:45 WBC 5.1 RBC 3.67 L Hgb 11.3 L Hct 37.3 L MCV 101.6 H MCH 30.8 MCHC 30.3 L RDW Std Deviation 56.2 H RDW Coeff of Blake 15.1 H Plt Count 218 MPV 10.9 Immature Gran % (Auto) 0.600 Neut % (Auto) 50.6 Lymph % (Auto) 33.6 [place] % (Auto) 13.2 H Eos % (Auto) 1.6 Baso % (Auto) 0.4 Absolute Neuts (auto) 2.6 Absolute Lymphs (auto) 1.71 Nucleated RBC % 0 Platelet Estimate ADEQUATE Plt Morphology Comment LARGE RBC Morphology N CHROM Anisocytosis 1+ Macrocytosis 1+ Sodium 141 Potassium 4.9 Chloride 105 Carbon Dioxide 34.0 H Anion Gap 2 L BUN 41 H Creatinine 2.09 H Estim Creat Clear Calc 25.86 Est GFR (MDRD) Af Amer 40 L Est GFR (MDRD) Non-Af 33 L BUN/Creatinine Ratio 19.6 Glucose 179 H Calcium 8.8 Troponin I 0.034 B-Natriuretic Peptide 285.6 H - Rhythm Strip Rhythm Strip: Sinus Rhythm Rate: 65 Ectopy: None - EKG Initial EKG Interpretation: Sinus Rhythm, - - Sinus rhythm at a rate of 66 Normal intervals Left axis deviation Right bundle branch block - Medical Decision Making Patient is evaluated for increased shortness of breath and dizziness. He is had multiple falls over the past few weeks. As he has had falls and hit his head, CT of the brain is obtained which is negative.Patient has been symptomatic with increased dyspnea on exertion. When he arrives he is 89% on his 2 L nasal cannula which is his baseline. Family states he is got as low as 83%. Patient is increased to 4 L nasal cannula. Patient does have an elevated proBNP and a c hest x-ray does not show any acute process. Clinically patient does not appear significantly fluid overloaded however he does have been crackles at the base of his lungs. He is quite symptomatic however. He is ambulated on 3 L of oxygen and drops down to 82% and is symptomatic during this. I do think patient will require admission for acute on chronic toxic respiratory failure. I suspect this is from a CHF exacerbation. Patient is admitted however CT of the chest is ordered and still pending at time of admission. My concern is that there might be a pneumonia or other process that is not seen on chest x-ray. CT of the chest shows findings consistent with CHF. This is relayed to admitting physician. Patient is agreeable to this plan. Patient lab work is remarkable for an elevated proBNP. Troponin is normal at 0.034. His creatinine is slightly bumped at 2.09. This will be monitored on the floor. ED Disposition - Plan for ED Patient: Disposition: Acute Care Hospital [facility] Diagnosis: Acute exacerbation of CHF (congestive heart failure), Acute and chronic respiratory failure with hypoxia
[2019-08-04 20:48] LABS: Differential Indicated SCAN CRITERIA MET
[2019-08-04 20:49] LABS: Anisocytosis 1+; Macrocytosis 1+; Platelet Estimate ADEQUATE (ADEQ); Platelet Morphology LARGE; Red Cell Morphology N CHROM NORMAL (NORM C&C)
[2019-08-04 21:04] LABS: BNP,B-Type NATRIURETIC PEPTIDE 285.6 pg/mL (0-100)
[2019-08-04 21:11] LABS: Anion Gap 2 (5-15); BUN 41 mg/dL (7-18); BUN/Creat Ratio 19.6 RATIO (10-20); Calcium,Total 8.8 mg/dL (8.5-10.1); Chloride 105 mmol/L (98-107); Creatinine, Serum 2.09 mg/dL (0.70-1.30); EST Glomerular Filtration Rate 33 mL/min (>60); Est Glom Filt Rate - Afr Amer 40 mL/min (>60); Estimated Creatinine Clearance 25.86 ml/min; Glucose 179 mg/dL (74-106); Potassium 4.9 mmol/L (3.5-5.1); Sodium Level 141 mmol/L (136-145)
--- NOTE | 2019-08-04 22:31 | HP.PCM_ITS ---
Problem List (1) Acute exacerbation of CHF (congestive heart failure) Status: Chronic (2) Sleep apnea Status: Chronic Qualifiers: Sleep apnea type: obstructive Qualified Code(s): G47.33 - Obstructive sleep apnea (adult) (pediatric) Comment: BiPAP 25/19 cm of water with a 2 L/min oxygen bleed (3) Type 2 diabetes mellitus with diabetic polyneuropathy Status: Chronic History of Present Illness Date of Admission: 08/04/19 Chief Complaint: lethargy The patient is a 78 year old M with a significant history of CKD stage III; hypertension; fibromyalgia who was brought to the emergency department because of lethargy. Per Family patient has been sleeping all day on the day of presentation and he was wobbly on his feet. Further, reportedly patient has not been eating. Also he has gained some weight. In the last week reportedly his weight at home 212 pounds but emergency department his weight was 215.2 pounds. His oxygen saturation on his normal 2 L of oxygen on presentation was 84%. Patient required an increase in his oxygen supplementation. BNP was 285.6. Echocardiogram 02/06/2019 showed mild concentric left ventricular hypertrophy. Left ventricular systolic function was normal with EF of 55 ?5%. Grade 1 left ventricular diastolic dysfunction. Past Medical History Past Medical History (Chronic Problems): Chronic Problems (Last Reviewed 08/05/19 @ 01:27 by Leonides Ward MD) Acute exacerbation of CHF (congestive heart failure) (Chronic) Acute and chronic respiratory failure with hypoxia (Chronic) CKD (chronic kidney disease) stage 4, GFR 15-29 ml/min (Chronic) Sleep apnea (Chronic) BiPAP 25/19 cm of water with a 2 L/min oxygen bleed Atherosclerosis of coronary artery of [place] heart without angina pectoris (Chronic) CABG X 4 vessels in 1998 Obesity (BMI 30-39.9) (Chronic) Type 2 diabetes mellitus with diabetic polyneuropathy (Chronic) Peripheral vascular disease (Chronic) Malnutrition (Chronic) Delayed wound healing (Chronic) Chronic respiratory failure with hypoxia (Chronic) Stage 2 moderate COPD by GOLD classification (Chronic) Benign essential hypertension (Chronic) Hyperlipidemia (Chronic) History of coronary artery bypass graft (Chronic) CHAIREZ to LAD, SVG to PDA, free radial artery to OM1, SVG to OM2 12/12/98 Pacemaker (Chronic) Initial insertion 1998 at [facility], battery change 2007 Anemia in chronic kidney disease (Chronic) Obesity (BMI 30-39.9) (Chronic) 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) Carotid stenosis (Chronic) Pulmonary HTN (Chronic) RVSP 63 mmHg Medical History: Medical History (Last Reviewed 08/05/19 @ 02:36 by Leonides Ward MD) CKD (chronic kidney disease) stage 4, GFR 15-29 ml/min (Chronic) N18.4 Sleep apnea (Chronic) G47.30 BiPAP 25/19 cm of water with a 2 L/min oxygen bleed Atherosclerosis of coronary artery of [place] heart without angina pectoris (Chronic) I25.10 CABG X 4 vessels in 1998 Obesity (BMI 30-39.9) (Chronic) E66.9 Type 2 diabetes mellitus with diabetic polyneuropathy (Chronic) E11.42 Peripheral vascular disease (Chronic) I73.9 Malnutrition (Chronic) E46 Delayed wound healing (Chronic) T14.8XXD Chronic respiratory failure with hypoxia (Chronic) J96.11 Stage 2 moderate COPD by GOLD classification (Chronic) J44.9 Benign essential hypertension (Chronic) I10 Hyperlipidemia (Chronic) E78.5 Shortness of breath (Acute) R06.02 Acute respiratory failure with hypoxia (Acute) J96.01 combined respiratory failure with hypoxemia and hypercarbia Acute on chronic respiratory failure with hypercapnia (Acute) J96.22 Anemia in chronic kidney disease (Chronic) N18.9, D63.1 Acute respiratory failure with hypoxemia (Acute) J96.01 Obesity (BMI 30-39.9) (Chronic) E66.9 CVA (cerebral vascular accident) (Resolved) I63.9 ischemic, Right cerebellum and suspected brainstem Cerebellar stroke, acute (Resolved) I63.9 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) I63.9, R47.1 Acute kidney injury superimposed on chronic kidney disease (Acute) N17.9, N18.9 elevated right hemidiaphragm (Chronic) Carotid stenosis (Chronic) I65.29 Pulmonary HTN (Chronic) I27.2 RVSP 63 mmHg Fibromyalgia M79.7 Gout M10.9 Memory impairment R41.3 Borderline elevated troponin (Resolved) Chronic heel ulcer with fat layer exposed (Resolved) L97.402 Chronic ulcer of left foot with fat layer exposed (Resolved) L97.522 Elevated troponin (Resolved) R79.89 History of DVT (deep vein thrombosis) Z86.718 Hypokalemia (Resolved) E87.6 Hypomagnesemia (Resolved) E83.42 Hypophosphatemia (Resolved) E83.39 Pneumonia J18.9 01/2018, also had thoracentesis done while he was in, [facility] Pressure injury of deep tissue of left heel (Resolved) L89.629 Pressure injury of right buttock, stage 2 (Resolved) L89.312 Ulcer of left heel L97.429 Chronic renal failure, stage 3 (moderate) (Inactive) N18.3 Allergies adhesive Allergy (Verified 08/04/19 18:36) Rash Beef Containing Products Allergy (Verified 08/04/19 18:36) Other cortisone Allergy (Verified 08/04/19 18:36) Other NOVACAINE Allergy (Uncoded 08/04/19 18:36) Other Home Medications: Ambulatory Orders Medication Instructions Recorded Carvedilol [Coreg (Beta Sarwat)] 50 mg PO BID 07/13/14 Cholecalciferol (VIT D3) [Vitamin 1,000 unit PO DAILY 07/13/14 D3] Nitroglycerin (INPATIENT USE) 0.4 mg SUBLINGUAL Q5M PRN 07/13/14 [Nitrostat] Atorvastatin Calcium [Lipitor] 40 mg PO QHS tab 06/04/15 Clopidogrel Bisulfate [Plavix] 75 mg PO DAILY #30 tab 06/14/15 Multivitamin [Daily Multiple 1 ea PO DAILY 03/14/17 Vitamin] Insulin NPH Human Isophane 6 unit SQ QHS 03/17/18 [Novolin N] amlodipine 2.5 mg tablet 2.5 mg PO DAILY 07/06/19 cyanocobalamin (vitamin B-12) 1,000 mcg PO DAILY 07/06/19 1,000 mcg capsule furosemide 40 mg tablet 40 mg PO DAILY 07/06/19 gabapentin 300 mg capsule 600 mg PO BID cap 07/06/19 insulin NPH isoph U-100 human 100 18 unit SC QAM ml 07/06/19 unit/mL subcutaneous suspension insulin regular human 100 unit/mL 8 unit SC .COMPLEX 07/06/19 injection solution omega-3 fatty acids 1,000 mg 1,000 mg PO DAILY 07/06/19 capsule pyridoxine (vitamin B6) 100 mg 100 mg PO DAILY 07/06/19 tablet Famotidine [Pepcid] 20 mg PO BID 08/04/19 Surgical History: Surgical History (Last Reviewed 08/05/19 @ 01:27 by Leonides Ward MD) History of coronary artery bypass graft (Chronic) CHAIREZ to LAD, SVG to PDA, free radial artery to OM1, SVG to OM2 12/12/98 Pacemaker (Chronic) Z95.0 Initial insertion 1998 at [facility], battery change 2007 History of bilateral cataract extraction Z98.41, Z98.42 with IOL History of hernia repair Z98.890, Z87.19 History of rotator cuff surgery Z98.890 History of thoracentesis Z98.890 Hx of cholecystectomy Z90.49 01/2018 Stent in gallbladder 11/2017 Stent removed liver 03/2018 stent in liver Surgical History: cataract - bilateral, coronary bypass surgery - 199 X 4 vessels, pacemaker implantation Psychiatric History: No pertinent psych hx Lives: Spouse/ Significant Other Smoking Status: Never smoker - *Family History Maternal Family History: Family History (Last Reviewed 08/05/19 @ 01:25 by Leonides Ward MD) Father Heart disease Mother Lung cancer History Items: Cancer - breast Paternal Family History: Family History (Last Reviewed 08/05/19 @ 01:25 by Leonides Ward MD) Father Heart disease Mother Lung cancer History Items: Diabetes, Heart Disease, Hypertension Review of Systems Constitutional: Reports: Weight Change - Weight gain of about 3.2 pounds in within the week., Fatigue. Denies: Chills, Fever HEENT: Denies: Head Aches, Sinus Congestion, Sinus Drainage Cardiovascular: Reports: Light Headedness, Orthopnea - Chronic. Denies: Chest Pain, Palpitations Respiratory: Reports: Shortness of Breath. Denies: Cough, Shortness of breath at rest, Sputum production Gastrointestinal: Denies: Abdominal Pain, Nausea, Vomiting Genitourinary: Denies: Dysuria Musculoskeletal: Denies: Joint Pain, Joint Tenderness Skin: Denies: Rash, Wounds Neurological: Denies: Numbness, Tingling, Focal weakness Psychiatric: Denies: Anxiety, Depression, Homicidal Ideations, Suicidal Ideations Hematologic/ Lymphatic: Denies: Easy Bruising, Easy Bleeding VTE Information - Inpt Only VTE Present on Admission: No VTE Mechan Device Prophylaxis: None VTE Pharm Prophylaxis ordered?: Yes - Physical Exam Vitals/I&O's: Vital Signs Temp Pulse Resp BP Pulse Ox 98.3 F 71 17 151/77 H 93 08/04/19 18:36 08/04/19 22:26 08/04/19 22:26 08/04/19 22:26 08/04/19 22:26 Oxygen Flow Rate (L/min) 3 Oxygen Delivery Method Nasal Cannula Weight: 96.162 kg Body Mass Index (BMI) 34.2 Finger Stick Blood Glucose 108 General: Alert, Oriented x3, Cooperative HEENT: Atraumatic, PERRLA, EOMI, Normocephalic Neck: Supple, Trachea Midline Lungs: No rhonchi, No wheeze, Rales - Right more than left, Tachypneic Cardiovascular: Regular rate, Normal S1, Normal S2, No murmurs Abdomen: Bowel Sounds Present, Soft, Non Tender Extremities: No edema, Capillary Refill Less than 3 Seconds Skin: No rashes, No breakdown Musculoskeletal: No Tenderness to Palpation of Joints or Extremities Neurological: Cranial nerves II-XII grossly intact Psych/Mental Status: Normal Affect, Appropriate Laboratory Results 08/04/19 19:45: WBC 5.1, RBC 3.67 L, Hgb 11.3 L, Hct 37.3 L, MCV 101.6 H, MCH 30.8, MCHC 30.3 L, RDW Std Deviation 56.2 H, RDW Coeff of Blake 15.1 H, Plt Count 218, MPV 10.9, Immature Gran % (Auto) 0.600, Neut % (Auto) 50.6, Lymph % (Auto) 33.6, [place] % (Auto) 13.2 H, Eos % (Auto) 1.6, Baso % (Auto) 0.4, Absolute Neuts (auto) 2.6, Absolute Lymphs (auto) 1.71, Nucleated RBC % 0, Platelet Estimate ADEQUATE, Plt Morphology Comment LARGE, RBC Morphology N CHROM, Anisocytosis 1+, Macrocytosis 1+ 08/04/19 19:45: Sodium 141, Potassium 4.9, Chloride 105, Carbon Dioxide 34.0 H, Anion Gap 2 L, BUN 41 H, Creatinine 2.09 H, Estim Creat Clear Calc 25.86, Est GFR (MDRD) Af Amer 40 L, Est GFR (MDRD) Non-Af 33 L, BUN/Creatinine Ratio 19.6, Glucose 179 H, Calcium 8.8, Troponin I 0.034 08/04/19 19:45: B-Natriuretic Peptide 285.6 H Assessment/Plan All Active Problems (Last Reviewed 08/05/19 @ 01:27 by Leonides Ward MD) Shortness of breath (Acute) Acute respiratory failure with hypoxia (Acute) Acute on chronic respiratory failure with hypercapnia (Acute) Acute respiratory failure with hypoxemia (Acute) CVA (cerebral vascular accident) (Resolved) Cerebellar stroke, acute (Resolved) Acute kidney injury superimposed on chronic kidney disease (Acute) Borderline elevated troponin (Resolved) Chronic heel ulcer with fat layer exposed (Resolved) Chronic ulcer of left foot with fat layer exposed (Resolved) Elevated troponin (Resolved) Hypokalemia (Resolved) Hypomagnesemia (Resolved) Hypophosphatemia (Resolved) Non-ST elevation [place] (NSTEMI) (Resolved) Pressure injury of deep tissue of left heel (Resolved) Pressure injury of right buttock, stage 2 (Resolved) The patient is a 78 year old M with a significant history of CKD stage III; hypertension; fibromyalgia who was brought to the emergency department because of lethargy; wobbliness and found to have radiographic evidence of cardiomegaly with pulmonary edema and small pleural effusion likely suggestive of CHF. Acute hypoxemic respiratory failure secondary to likely exacerbation of acute on chronic heart failure with preserved ejection fraction. Discussed emergency department doctor who ordered a CT of the chest. Chest CT showed cardiomegaly with pulmonary edema and small pleural effusion likely sug gestive of CHF. Resume home Lasix 40 mg daily which he reports being compliant with. Will escalate diuretic therapy to Lasix 40 mg IV twice daily. Trend BMP. Daily weights. Fluid restriction. 2 g cardiac diet. We will check TSH because of his lethargy. Also check vitamin B12 because reportedly patient was wobbly on his feet. Brain CT unremarkable. Sleep apnea BiPAP continued [place] on chronic kidney disease stage III CKD Likely from Diabetic nephropathy Presentation his creatinine was 2.09.his creatinine on 06/27/2019 was 1.57. And his creatinine on 01/31/2018 was 1.39. Baseline creatinine likely between 1.39-1.57. Likely due to cardiorenal syndrome. Lasix as above. Trend BMP. Diabetes mellitus type II With complications including diabetic nephropathy. Patient with hyperglycemia Home intermediate acting insulin; de-escalate to lower dose in the hospital setting. Accu-Chek QA CHS with correction scale insulin ordered. DVT Prophylaxis SCD ordered Code Visit Inpatient E&M: 15798 Init Hosp L3
--- NOTE | 2019-08-04 22:52 | CT_ITS ---
HISTORY: HYPOXIA, H/O SLEEP APNEA. INCREASED SOB. DIZZINESS. FALLS. TECHNIQUE: Helically acquired images were obtained of the chest. A radiation dose optimization technique was used for this scan. IV Contrast dosage and agent: None. COMPARISON: Chest x-ray is available from 3 hours earlier. Abdomen and pelvis CT, which began at the level of the ascending thoracic aorta is from January 08, 2018. A CT scan of the chest is available from May 26, 2015. FINDINGS: # of images incl. paperwork: 824 Sternal wires. The sternum is healed. Left chest wall dual lead cardiac pacer is in place. Changes from CABG. LUNGS AND LARGE AIRWAYS: Interstitial pulmonary edema. Some alveolar edema. PLEURA: Pleural effusions are small. BONES: Mild kyphosis. Multilevel degenerative disc disease. Many enthesophytes. HEART AND PERICARDIUM: The heart is enlarged. Coronary artery atherosclerotic disease. Aortic valvular disease. VESSELS: Elongation of the thoracic aorta with severe linear calcific plaque at the origin of the left subclavian artery. MEDIASTINUM AND MATTI: Some mediastinal lymph nodes but are not pathologic by size or number. No axillary adenopathy. Some right hilar benign calcified lymph nodes SOFT TISSUES: The thyroid gland is not enlarged. No significant body wall edema UPPER ABDOMEN: The adrenal glands are not enlarged. The gallbladder is been resected. The liver, spleen, and visualized portions of the pancreas is normal. The stomach is decompressed. CT/Chest without Contrast IMPRESSION: Cardiomegaly with pulmonary edema and small pleural effusions likely suggestive of CHF Individualized dose optimization techniques were used for this CT. at 0041 Reported and signed by: Darryl Deluca MD Electronically Signed: Darryl Deluca MD at 0:39 EST Tel , Service support ,
[2019-08-05] VITALS (14 sets, daily range): BP systolic 136–162; BP diastolic 57–75; PULSE 61–90; RESP 12–20; TEMP 36.8–37.4; O2SAT 90–97
[2019-08-05] MEDS: Furosemide 40 MG/4 ML Vial IV ×2 (00:37→10:15)
[2019-08-05] MEDS: Famotidine 20 MG Tablet PO ×3 (00:38→22:46)
[2019-08-05] MEDS: Gabapentin 100 MG Capsule PO ×3 (00:38→22:46)
[2019-08-05] MEDS: Carvedilol 25 MG Tablet 50 MG PO ×3 (00:38→22:46)
[2019-08-05 00:45] LABS: Bedside Glucose 162 mg/dL (70-110)
[2019-08-05 04:49] LABS: Absolute Lymphocyte Count 1.75 X10^3/uL (0.83-4.51); Absolute Neutrophil Count 3.6 X10^3/uL (2.0-7.7); Basophil# 0.02 X10^3/uL; Basophil% 0.3 % (0-1); Eosinophil# 0.11 X10^3/uL; Eosinophils% 1.8 % (0-5); Hematocrit 35.3 % (40-54); Hemoglobin 10.7 g/dL (13.0-16.5); Lymphocyte # 1.75 X10^3/ul (4.0); Lymphocyte % 28.8 % (19-41); Mean Corp Hgb Conc 30.3 g/dL (32-36); Mean Corpuscular Hgb 30.7 pg (27.0-32.0); Mean Corpuscular Volume 101.4 fL (80-94); Mean Platelet Vol. 9.9 fl (6.2-12.0); Monocyte# 0.63 X10^3/uL; Monocyte% 10.4 % (0-10); NRBC Flagged by Analyzer 0 % (0-5); Neutrophil # 3.55 X10^3/uL (2.7-7.7); Neutrophil % 58.4 % (47-70); Platelet Count 203 K/mm3 (150-450); RBC Distribution Width SD 55.7 fl (35.1-43.9); Red Blood Count 3.48 M/mm3 (4.6-6.2); White Blood Count 6.1 K/mm3 (4.4-11.0)
[2019-08-05 05:14] LABS: Anion Gap 3 (5-15); BUN 39 mg/dL (7-18); BUN/Creat Ratio 21.1 RATIO (10-20); Calcium,Total 8.5 mg/dL (8.5-10.1); Chloride 101 mmol/L (98-107); Creatinine, Serum 1.85 mg/dL (0.70-1.30); EST Glomerular Filtration Rate 38 mL/min (>60); Est Glom Filt Rate - Afr Amer 46 mL/min (>60); Estimated Creatinine Clearance 29.22 ml/min; Glucose 222 mg/dL (74-106); Potassium 3.8 mmol/L (3.5-5.1); Sodium Level 143 mmol/L (136-145); Thyroid Stim Hormone (TSH) 2.82 uIU/mL (0.358-3.74)
[2019-08-05 06:40] LABS: Bedside Glucose 202 mg/dL (70-110)
[2019-08-05] MEDS: Insulin Lispro 100 UNIT/ML INSULN.PEN SC ×4 (06:43→22:46)
[2019-08-05] MEDS: 0.9% Saline Lock 10 ML Syringe IV (08:05)
[2019-08-05] MEDS: Cyanocobalamin 500 MCG Tablet 1000 MCG PO (10:15)
[2019-08-05] MEDS: Insulin NPH Human 100 UNITS/ML PEN 14 UNITS SC (10:15)
[2019-08-05] MEDS: Omega-3 Acid Ethyl Esters 1 GM Capsule PO (10:15)
[2019-08-05] MEDS: Enoxaparin 30 MG/0.3 ML Syringe SC (10:15)
[2019-08-05] MEDS: Clopidogrel Bisulfate 75 MG Tablet PO (10:15)
[2019-08-05] MEDS: Pyridoxine HCl 100 MG Tablet PO (10:15)
[2019-08-05] MEDS: amLODIPine 2.5 MG Tablet PO (10:15)
[2019-08-05] MEDS: Multivitamins,Therapeutic Tablet 1 TABLET PO (10:15)
[2019-08-05 11:20] LABS: Bedside Glucose 254 mg/dL (70-110)
--- NOTE | 2019-08-05 13:52 | PN_ITS ---
<Ja Hernandez - Last Filed: 08/05/19 13:52> Reason for Visit: SOB Subjective: Patient notes, since admission his breathing is significantly improved. He has not been up and ambulating at however. He has noted that the Lasix seems to be working he has he has been urinating very frequently. He does not have significant lower extremity edema. He is a nonproductive cough. He has no fevers or chills. He has no chest pain, pressure, tightness, heaviness, no lightheadedness or dizziness, no palpitations. Vitals/I&O's: Vital Signs Temp Pulse Resp BP Pulse Ox 98.3 F 78 20 H 136/75 H 97 08/05/19 11:50 08/05/19 11:50 08/05/19 11:50 08/05/19 11:50 08/05/19 11:50 Oxygen Flow Rate (L/min) 3 Oxygen Delivery Method Nasal Cannula Weight: 212 lb 8.41 oz Body Mass Index (BMI) 34.7 Finger Stick Blood Glucose 108 Intake and Output for Last 24 Hours 08/03/19 08/04/19 08/05/19 23:59 23:59 23:59 Intake Total 780 / 780 Output Total 150 / 150 Balance 630 / 630 General: Alert, Oriented x3, Cooperative HEENT: Atraumatic, PERRLA, EOMI, Normocephalic Neck: Supple, No JVD, Negative Carotid Bruits Lungs: Diminished, Rales Cardiovascular: Regular rate, No murmurs Abdomen: Bowel Sounds Present, Soft, Non Tender, Obese Extremities: No edema, Capillary Refill Less than 3 Seconds Skin: No rashes, No breakdown Musculoskeletal: No Tenderness to Palpation of Joints or Extremities Neurological: Cranial nerves II-XII grossly intact Psych/Mental Status: Normal Affect, Appropriate Laboratory Results 08/04/19 19:45: WBC 5.1, RBC 3.67 L, Hgb 11.3 L, Hct 37.3 L, MCV 101.6 H, MCH 30.8, MCHC 30.3 L, RDW Std Deviation 56.2 H, RDW Coeff of Blake 15.1 H, Plt Count 218, MPV 10.9, Immature Gran % (Auto) 0.600, Neut % (Auto) 50.6, Lymph % (Auto) 33.6, [place] % (Auto) 13.2 H, Eos % (Auto) 1.6, Baso % (Auto) 0.4, Absolute Neuts (auto) 2.6, Absolute Lymphs (auto) 1.71, Nucleated RBC % 0, Platelet Estimate ADEQUATE, Plt Morphology Comment LARGE, RBC Morphology N CHROM, Anisocytosis 1+, Macrocytosis 1+ 08/04/19 19:45: Sodium 141, Potassium 4.9, Chloride 105, Carbon Dioxide 34.0 H, Anion Gap 2 L, BUN 41 H, Creatinine 2.09 H, Estim Creat Clear Calc 25.86, Est GFR (MDRD) Af Amer 40 L, Est GFR (MDRD) Non-Af 33 L, BUN/Creatinine Ratio 19.6, Glucose 179 H, Calcium 8.8, Troponin I 0.034 08/04/19 19:45: B-Natriuretic Peptide 285.6 H 08/05/19 00:34: POC Glucose 162 H 08/05/19 01:05: Troponin I 0.044 08/05/19 04:23: Vitamin B12 Pending 08/05/19 04:23: Sodium 143, Potassium 3.8, Chloride 101, Carbon Dioxide 39.0 H, Anion Gap 3 L, BUN 39 H, Creatinine 1.85 H, Estim Creat Clear Calc 29.22, Est GFR (MDRD) Af Amer 46 L, Est GFR (MDRD) Non-Af 38 L, BUN/Creatinine Ratio 21.1 H , Glucose 222 H, Calcium 8.5, TSH 2.82 08/05/19 04:23: WBC 6.1, RBC 3.48 L, Hgb 10.7 L, Hct 35.3 L, MCV 101.4 H, MCH 30.7, MCHC 30.3 L, RDW Std Deviation 55.7 H, RDW Coeff of Blake 15.0 H, Plt Count 203, MPV 9.9, Immature Gran % (Auto) 0.300, Neut % (Auto) 58.4, Lymph % (Auto) 28.8, [place] % (Auto) 10.4 H, Eos % (Auto) 1.8, Baso % (Auto) 0.3, Absolute Neuts (auto) 3.6, Absolute Lymphs (auto) 1.75, Nucleated RBC % 0 08/05/19 04:23: Troponin I 0.023 08/05/19 06:37: POC Glucose 202 H 08/05/19 07:30: Troponin I 0.030 08/05/19 11:13: POC Glucose 254 H Current Medications Acetaminophen (Tylenol) 650 mg PO Q6H PRN PRN PRN Reason: Pain Score 1-10/Temp > 100.7 F Amlodipine Besylate (Norvasc) 2.5 mg PO DAILY [facility] Last Admin: 08/05/19 10:15 Dose: 2.5 mg Documented by: Atorvastatin Calcium (Lipitor) 40 mg PO QHS [facility] Carvedilol (Coreg) 50 mg PO BID [facility] Last Admin: 08/05/19 10:15 Dose: 50 mg Documented by: Cholecalciferol (Vitamin D) 1,000 unit PO DAILY [facility] Last Admin: 08/05/19 10:15 Dose: 1,000 unit Documented by: Clopidogrel Bisulfate (Plavix) 75 mg PO DAILY [facility] Last Admin: 08/05/19 10:15 Dose: 75 mg Documented by: Cyanocobalamin (Vitamin B12) 1,000 mcg PO DAILY [facility] Last Admin: 08/05/19 10:15 Dose: 1,000 mcg Documented by: Enoxaparin Sodium (Lovenox) 30 mg SC DAILY [facility] Last Admin: 08/05/19 10:15 Dose: 30 mg Documented by: Famotidine (Pepcid) 20 mg PO BID [facility] Last Admin: 08/05/19 10:15 Dose: 20 mg Documented by: Furosemide (Lasix) 40 mg IV BIDLX [facility] Last Admin: 08/05/19 10:15 Dose: 40 mg Documented by: Gabapentin (Neurontin) 100 mg PO BID [facility] Last Admin: 08/05/19 10:15 Dose: 100 mg Documented by: Glucagon () 1 mg IM .X1 PRN PRN Reason: Hypoglycemia Sodium Chloride () 250 mls @ 15 mls/hr IV .[id number] PRN PRN Reason: Saline Flush Sodium Chloride () 250 mls @ 15 mls/hr IV .[id number] PRN PRN Reason: Additional IVPB Infusion Dextrose (Dextrose 10%-Water) 250 mls @ 999 mls/hr IV .Q16M PRN; Protocol PRN Reason: HYPOGLYCEMIA Insulin Human Lispro (Humalog Kwwarrenpen (Bkc)) 0 unit SC ACHS [facility]; Protocol Last Admin: 08/05/19 12:45 Dose: 2 unit Documented by: Insulin Human NPH (Humulin N (Bkc)) 14 units SC QAM [facility] Last Admin: 08/05/19 10:15 Dose: 14 units Documented by: Insulin Human NPH (Humulin N (Bkc)) 4 units SC QHS JENNIFER Melatonin (Melatonin) 3 mg PO QHS PRN PRN PRN Reason: INSOMNIA [facility]ivitamins ([facility]amin) [facility] Last Admin: 08/05/19 10:15 Dose: 1 tablet Documented by: [id number] Ethyl Esters (Lovaza) 1 gm PO DAILY [facility] Last Admin: 08/05/19 10:15 Dose: 1 gm Documented by: Ondansetron HCl (Zofran) 4 mg IV Q8H PRN PRN PRN Reason: NAUSEA/VOMITING Pyridoxine HCl (Vitamin B-6) 100 mg PO DAILY [facility] Last Admin: 08/05/19 10:15 Dose: 100 mg Documented by: Sodium Chloride () 10 - 40 ml IV UD PRN PRN Reason: SALINE FLUSH Last Admin: 08/05/19 08:05 Dose: 10 ml Documented by: STROKE Vital Signs/Narrative: Vital Signs Temp Pulse Resp BP Pulse Ox 08/05/19 11:50 98.3 F 78 20 H 136/75 H 97 Medical Necessity - Tobacco Use Smoking Status: Never smoker Assessment/Plan All Active Problems (Last Reviewed 08/05/19 @ 02:36 by Leonides Ward MD) Shortness of breath (Acute) Acute respiratory failure with hypoxia (Acute) Acute on chronic respiratory failure with hypercapnia (Acute) Acute respiratory failure with hypoxemia (Acute) CVA (cerebral vascular accident) (Resolved) Cerebellar stroke, acute (Resolved) Acute kidney injury superimposed on chronic kidney disease (Acute) Borderline elevated troponin (Resolved) Chronic heel ulcer with fat layer exposed (Resolved) Chronic ulcer of left foot with fat layer exposed (Resolved) Elevated troponin (Resolved) Hypokalemia (Resolved) Hypomagnesemia (Resolved) Hypophosphatemia (Resolved) Non-ST elevation ID (NSTEMI) (Resolved) Pressure injury of deep tissue of left heel (Resolved) Pressure injury of right buttock, stage 2 (Resolved) 1. Acute on chronic diastolic congestive heart failure-echocardiogram January 2019 demonstrates EF of 55%, grade 1 diastolic dysfunction, hypokinetic apical septum. He was diuresed well with IV Lasix, however his CO2 is increasing so will transition to oral Lasix tomorrow morning. Diamox if necessary. Patient feels significantly improved and is expecting discharge by tomorrow. His baseline oxygen uses 2 L, he is pretty comfortable on [address] of his chest demonstrates cardiomegaly, pulmonary edema, small pleural effusions suggestive of CHF. He has no fever or leukocytosis. Renal function is improving on Lasix. TSH is normal. Troponin is negative x3. BNP was somewhat elevated to 285.6. This is also complicated by history of pulmonary hypert ension. 2. GERMAIN on CKD 3-improving. Likely cardiorenal syndrome. Recheck in a.m. 3. Type 2 diabetes-Home insulin plus sliding scale. 4. Obstructive sleep apnea-continue BiPAP at night. 5. History of pacemaker 6. CAD with prior CABG-continue statin, Coreg, Plavix DVT prophylaxis: Lovenox Discharge planning: likely home tomorrow This patient was seen by Ja Hernandez PA-C under the supervision of Dr. Bernabe <Callie Bernabe - Last Filed: 08/05/19 14:15> Vitals/I&O's: Vital Signs Temp Pulse Resp BP Pulse Ox 98.3 F 78 20 H 136/75 H 97 08/05/19 11:50 08/05/19 11:50 08/05/19 11:50 08/05/19 11:50 08/05/19 11:50 Oxygen Flow Rate (L/min) 3 Oxygen Delivery Method Nasal Cannula Weight: 96.4 kg Body Mass Index (BMI) 34.7 Finger Stick Blood Glucose 108 Intake and Output for Last 24 Hours 08/03/19 08/04/19 08/05/19 23:59 23:59 23:59 Intake Total 780 / 780 Output Total 150 / 150 Balance 630 / 630 Laboratory Results 08/04/19 19:45: WBC 5.1, RBC 3.67 L, Hgb 11.3 L, Hct 37.3 L, MCV 101.6 H, MCH 30.8, MCHC 30.3 L, RDW Std Deviation 56.2 H, RDW Coeff of Blake 15.1 H, Plt Count 218, MPV 10.9, Immature Gran % (Auto) 0.600, Neut % (Auto) 50.6, Lymph % (Auto) 33.6, [place] % (Auto) 13.2 H, Eos % (Auto) 1.6, Baso % (Auto) 0.4, Absolute Neuts (auto) 2.6, Absolute Lymphs (auto) 1.71, Nucleated RBC % 0, Platelet Estimate ADEQUATE, Plt Morphology Comment LARGE, RBC Morphology N CHROM, Anisocytosis 1+, Macrocytosis 1+ 08/04/19 19:45: Sodium 141, Potassium 4.9, Chloride 105, Carbon Dioxide 34.0 H, Anion Gap 2 L, BUN 41 H, Creatinine 2.09 H, Estim Creat Clear Calc 25.86, Est GFR (MDRD) Af Amer 40 L, Est GFR (MDRD) Non-Af 33 L, BUN/Creatinine Ratio 19.6, Glucose 179 H, Calcium 8.8, Troponin I 0.034 08/04/19 19:45: B-Natriuretic Peptide 285.6 H 08/05/19 00:34: POC Glucose 162 H 08/05/19 01:05: Troponin I 0.044 08/05/19 04:23: Vitamin B12 Pending 08/05/19 04:23: Sodium 143, Potassium 3.8, Chloride 101, Carbon Dioxide 39.0 H, Anion Gap 3 L, BUN 39 H, Creatinine 1.85 H, Estim Creat Clear Calc 29.22, Est GFR (MDRD) Af Amer 46 L, Est GFR (MDRD) Non-Af 38 L, BUN/Creatinine Ratio 21.1 H , Glucose 222 H, Calcium 8.5, TSH 2.82 08/05/19 04:23: WBC 6.1, RBC 3.48 L, Hgb 10.7 L, Hct 35.3 L, MCV 101.4 H, MCH 30.7, MCHC 30.3 L, RDW Std Deviation 55.7 H, RDW Coeff of Blake 15.0 H, Plt Count 203, MPV 9.9, Immature Gran % (Auto) 0.300, Neut % (Auto) 58.4, Lymph % (Auto) 28.8, [place] % (Auto) 10.4 H, Eos % (Auto) 1.8, Baso % (Auto) 0.3, Absolute Neuts (auto) 3.6, Absolute Lymphs (auto) 1.75, Nucleated RBC % 0 08/05/19 04:23: Troponin I 0.023 08/05/19 06:37: POC Glucose 202 H 08/05/19 07:30: Troponin I 0.030 08/05/19 11:13: POC Glucose 254 H Current Medications Acetaminophen (Tylenol) 650 mg PO Q6H PRN PRN PRN Reason: Pain Score 1-10/Temp > 100.7 F Amlodipine Besylate (Norvasc) 2.5 mg PO DAILY [facility] Last Admin: 08/05/19 10:15 Dose: 2.5 mg Documented by: Atorvastatin Calcium (Lipitor) 40 mg PO QHS [facility] Carvedilol (Coreg) 50 mg PO BID [facility] Last Admin: 08/05/19 10:15 Dose: 50 mg Documented by: Cholecalciferol (Vitamin D) 1,000 unit PO DAILY [facility] Last Admin: 08/05/19 10:15 Dose: 1,000 unit Documented by: Clopidogrel Bisulfate (Plavix) 75 mg PO DAILY [facility] Last Admin: 08/05/19 10:15 Dose: 75 mg Documented by: Cyanocobalamin (Vitamin B12) 1,000 mcg PO DAILY [facility] Last Admin: 08/05/19 10:15 Dose: 1,000 mcg Documented by: Enoxaparin Sodium (Lovenox) 30 mg SC DAILY [facility] Last Admin: 08/05/19 10:15 Dose: 30 mg Documented by: Famotidine (Pepcid) 20 mg PO BID [facility] Last Admin: 08/05/19 10:15 Dose: 20 mg Documented by: Furosemide (Lasix) 40 mg PO DAILY [facility] Gabapentin (Neurontin) 100 mg PO BID [facility] Last Admin: 08/05/19 10:15 Dose: 100 mg Documented by: Glucagon () 1 mg IM .X1 PRN PRN Reason: Hypoglycemia Sodium Chloride () 250 mls @ 15 mls/hr IV .[id number] PRN PRN Reason: Saline Flush Sodium Chloride () 250 mls @ 15 mls/hr IV .[id number] PRN PRN Reason: Additional IVPB Infusion Dextrose (Dextrose 10%-Water) 250 mls @ 999 mls/hr IV .Q16M PRN; Protocol PRN Reason: HYPOGLYCEMIA Insulin Human Lispro (Humalog Kwikpen (Bkc)) 0 unit SC ACHS [facility]; Protocol Last Admin: 08/05/19 12:45 Dose: 2 unit Documented by: Insulin Human NPH (Humulin N (Bk)) 14 units SC QAM [facility] Last Admin: 08/05/19 10:15 Dose: 14 units Documented by: Insulin Human NPH (Humulin N (Bk)) 4 units SC QHS [facility] Melatonin (Melatonin) 3 mg PO QHS PRN PRN PRN Reason: INSOMNIA Multivitamins (Multivitamin) 1 tablet PO DAILYCM [facility] Last Admin: 08/05/19 10:15 Dose: 1 tablet Documented by: [id number] Ethyl Esters (Lovaza) 1 gm PO DAILY [facility] Last Admin: 08/05/19 10:15 Dose: 1 gm Documented by: Ondansetron HCl (Zofran) 4 mg IV Q8H PRN PRN PRN Reason: NAUSEA/VOMITING Pyridoxine HCl (Vitamin B-6) 100 mg PO DAILY [facility] Last Admin: 08/05/19 10:15 Dose: 100 mg Documented by: Sodium Chloride () 10 - 40 ml IV UD PRN PRN Reason: SALINE FLUSH Last Admin: 08/05/19 08:05 Dose: 10 ml Documented by: STROKE Vital Signs/Narrative: Vital Signs Temp Pulse Resp BP Pulse Ox 08/05/19 11:50 98.3 F 78 20 H 136/75 H 97 Assessment/Plan This patient was seen in conjunction with ALEXA Swartz. I have independently interviewed and examined the patient and reviewed pertinent historical, laboratory, and other data. Please refer to ALEXA Swartz note for his patient's presentation, findings, and recommendations. I have reviewed and his note and concur with his documentation Patient was seen and examined. He feels improved. He is usually on 2 L of oxygen. Currently on 3 L of oxygen. He is diuresing well. Physical Exam: Gen: Morbidly obese, on 3 L oxygen,, not pale, not jaundiced CVS:HS I +II, regular, no murmurs RESP: Diminished all over lungs GI: BS present and normal, soft, nontender, no palpable organs EXT:Bilateral pedal edema +1-2 ASSESSMENT: 1. Acute on chronic diastolic CHF, 55% 2. GERMAIN on CKD stage III, likely secondary to cardiorenal syndrome, improving 3. Hypertension 4. Type II DM 5. THEODORE 6. CAD status post CABG, status post pacemaker Plan: Decrease Lasix to 40 mg p.o. daily as he takes at home Continue on breathing treatments Repeat blood work in a.m. Code Visit Inpatient E&M: [id number] Subs Hosp L2
--- NOTE | 2019-08-05 13:57 | CM.UR ---
RN CM Assessment Introduced role of RN CM to patient. Patient is alert and able to participate in RN CM Assessment. Care providers, pharmacy, and demographics verified. No family at bedside. Presentation: worsening dizziness and multiple falls Admit Dx: resp failure Re-Admit: no Barriers/Issues: Hearing PCP: Ted. Specialists: Dr. 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 Preferred Pharmacy: [facility] Insurance: [employer] Rx Benefit: Yes LNOK: Mariza LW/HPOA: yes, both on file. Mariza is HPOA Living Arrangements: 1 story home with one small step to enter. ADL?s: states independent Transportation: States mostly drives but he can/still does. DME: cane, walker, w/c, bipap and oxygen. [facility] Goal: return home. DC PLAN: Home. Possible increase in O2. Armand Ware RN, CCM.
[2019-08-05 16:26] LABS: Bedside Glucose 210 mg/dL (70-110)
--- NOTE | 2019-08-05 18:16 | NURSING ---
Reviewed and agreed on all charting with Armand Moreno RN
[2019-08-05] MEDS: Atorvastatin Calcium 40 MG Tablet PO (22:46)
[2019-08-05] MEDS: Insulin NPH Human 100 UNITS/ML PEN SC (22:47)
[2019-08-06] VITALS (8 sets, daily range): BP systolic 132–148; BP diastolic 42–70; PULSE 60–71; RESP 12–18; TEMP 36.8–36.9; O2SAT 94–98
[2019-08-06 02:26] LABS: Bedside Glucose 170 mg/dL (70-110)
--- NOTE | 2019-08-06 04:49 | CPS ---
pt said mask was hurting, bipap on stand-by mode
[2019-08-06 06:57] LABS: Anion Gap 2 (5-15); BUN 39 mg/dL (7-18); BUN/Creat Ratio 22.7 RATIO (10-20); Calcium,Total 8.7 mg/dL (8.5-10.1); Chloride 100 mmol/L (98-107); Creatinine, Serum 1.72 mg/dL (0.70-1.30); EST Glomerular Filtration Rate 41 mL/min (>60); Est Glom Filt Rate - Afr Amer 50 mL/min (>60); Estimated Creatinine Clearance 31.43 ml/min; Glucose 129 mg/dL (74-106); Potassium 3.9 mmol/L (3.5-5.1); Sodium Level 142 mmol/L (136-145)
[2019-08-06] MEDS: 0.9% Saline Lock 10 ML Syringe IV (07:39)
[2019-08-06 07:45] LABS: Bedside Glucose 122 mg/dL (70-110)
[2019-08-06] MEDS: Multivitamins,Therapeutic Tablet 1 TABLET PO (10:20)
[2019-08-06] MEDS: Cyanocobalamin 500 MCG Tablet 1000 MCG PO (10:20)
[2019-08-06] MEDS: Gabapentin 100 MG Capsule PO (10:20)
[2019-08-06] MEDS: Clopidogrel Bisulfate 75 MG Tablet PO (10:20)
[2019-08-06] MEDS: amLODIPine 2.5 MG Tablet PO (10:20)
[2019-08-06] MEDS: Carvedilol 25 MG Tablet 50 MG PO (10:20)
[2019-08-06] MEDS: Pyridoxine HCl 100 MG Tablet PO (10:20)
[2019-08-06] MEDS: Omega-3 Acid Ethyl Esters 1 GM Capsule PO (10:21)
[2019-08-06] MEDS: Enoxaparin 30 MG/0.3 ML Syringe SC (10:21)
[2019-08-06] MEDS: Famotidine 20 MG Tablet PO (10:21)
--- NOTE | 2019-08-06 11:08 | DCINST_ITS ---
- Discharge Diagnoses Current Active Problems: Current Active and Chronic Problems (Last Reviewed 08/05/19 @ 02:36 by Leonides Ward MD) Acute exacerbation of CHF (congestive heart failure) (Chronic) Acute and chronic respiratory failure with hypoxia (Chronic) You will use the following diet at home:: Calorie/Carbohydrate Controlled (specify 1200, 1400, etc) - 1800 paul / day, Cardiac Your food should be the consistency of: Regular Your liquids should be the consistency of: Regular/Thin Discharge Activity: Return to Normal Activity Instructions: Heart Failure, Heart Failure: Evaluating Your Heart, Heart Failur e: Making Changes to Your Diet, Heart Failure: Medications to Help Your Heart, Heart Failure: Procedures That May Help, Heart Failure: Tracking Your Weight, Taking Medication to Control Heart Failure Additional Instructions: Check daily weights, if you notice a 5 pound weight gain in 1 weeks time, call your doctor for instructions regarding your lasix. Allergies/Adverse Reactions: Allergies adhesive Allergy (Verified 08/04/19 18:36) Rash Beef Containing Products Allergy (Verified 08/04/19 18:36) Other cortisone Allergy (Verified 08/04/19 18:36) Other NOVACAINE Allergy (Uncoded 08/04/19 18:36) Other Medications to take at Discharge Carvedilol [Coreg (Beta Sarwat)] 50 mg PO BID 07/13/14 Cholecalciferol (VIT D3) [Vitamin D3] 1,000 unit PO DAILY 07/13/14 Nitroglycerin (INPATIENT USE) [Nitrostat] 0.4 mg SUBLINGUAL Q5M PRN 07/13/14 Atorvastatin Calcium [Lipitor] 40 mg PO QHS tab 06/04/15 Clopidogrel Bisulfate [Plavix] 75 mg PO DAILY #30 tab 06/14/15 Multivitamin [Daily Multiple Vitamin] 1 ea PO DAILY 03/14/17 Insulin NPH Human Isophane [Novolin N] 6 unit SQ QHS 03/17/18 amlodipine 2.5 mg tablet 2.5 mg PO DAILY 07/06/19 cyanocobalamin (vitamin B-12) 1,000 mcg capsule 1,000 mcg PO DAILY 07/06/19 furosemide 40 mg tablet 40 mg PO DAILY 07/06/19 gabapentin 300 mg capsule 600 mg PO BID cap 07/06/19 insulin NPH isoph U-100 human 100 unit/mL subcutaneous suspension 18 unit SC QAM ml 07/06/19 insulin regular human 100 unit/mL injection solution 8 unit SC .COMPLEX 07/06/19 omega-3 fatty acids 1,000 mg capsule 1,000 mg PO DAILY 07/06/19 pyridoxine (vitamin B6) 100 mg tablet 100 mg PO DAILY 07/06/19 Famotidine [Pepcid] 20 mg PO BID 08/04/19 Primary Care Physician: Noah Jean DO [Primary Care Provider] - Please follow up with your Primary Care Physician in: 1-2 weeks Test Results: Test results from this visit will be discussed in further detail at your follow- up appointment, if applicable. Please Follow Up With: Davis Morfin MD When: Keep current appointment Please Follow Up With: Jas Momin MD When: 3-4 weeks Proposed Discharge Date: 08/06/19
[2019-08-06] MEDS: Furosemide 40 MG Tablet PO (11:20)
[2019-08-06] MEDS: Insulin NPH Human 100 UNITS/ML PEN 14 UNITS SC (11:20)
[2019-08-06] MEDS: Insulin Lispro 100 UNIT/ML INSULN.PEN SC (11:20)
[2019-08-06 11:26] LABS: Bedside Glucose 229 mg/dL (70-110)
[2019-08-06 12:28] LABS: Magnesium 2.2 mg/dL (1.6-2.6)
--- NOTE | 2019-08-06 15:04 | DS.PCM_ITS ---
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 Obstructive sleep apnea History of pacemaker History of CAD with prior CABG - Secondary Discharge Diagnosis Chronic Problems (Last Reviewed 08/05/19 @ 02:36 by Leonides Ward MD) Acute exacerbation of CHF (congestive heart failure) (Chronic) Acute and chronic respiratory failure with hypoxia (Chronic) CKD (chronic kidney disease) stage 4, GFR 15-29 ml/min (Chronic) Sleep apnea (Chronic) BiPAP 25/19 cm of water with a 2 L/min oxygen bleed Atherosclerosis of coronary artery of [place] heart without angina pectoris (Chronic) CABG X 4 vessels in 1998 Obesity (BMI 30-39.9) (Chronic) Type 2 diabetes mellitus with diabetic polyneuropathy (Chronic) Peripheral vascular disease (Chronic) Malnutrition (Chronic) Delayed wound healing (Chronic) Chronic respiratory failure with hypoxia (Chronic) Stage 2 moderate COPD by GOLD classification (Chronic) Benign essential hypertension (Chronic) Hyperlipidemia (Chronic) History of coronary artery bypass graft (Chronic) CHAIREZ to LAD, SVG to PDA, free radial artery to OM1, SVG to OM2 12/12/98 Pacemaker (Chronic) Initial insertion 1998 at [facility], battery change 2007 Anemia in chronic kidney disease (Chronic) Obesity (BMI 30-39.9) (Chronic) 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 Chronic changes as above. ASPECT 10. Individualized dose optimization techniques were used for this CT. RAD/Chest PA and Lateral IMPRESSION: No change. Cardiomegaly. 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 CT/Chest without Contrast IMPRESSION: Cardiomegaly with pulmonary edema and small pleural effusions likely suggestive of CHF Individualized dose optimization techniques were used for this CT. Operations: None Procedures: None Summary of Care Provided: Hospital Course: The patient is a 78 year old M with past medical history of CAD with prior CABG, CKD stage III diastolic congestive heart failure, type 2 diabetes with obesity, obstructive sleep apnea, who presented to the emergency room with complaints of lethargy, increased shortness of breath, weight gain. He was found to have elevated BNP hypoxia at 84% on his normal oxygen of 2 L/min nasal cannula, chest x-ray with cardiomegaly. He was felt to have acute on chronic diastolic congestive heart failure, and GERMAIN on CKD stage III. He had recently had an echocardiogram in January which demonstrated preserved ejection fraction so repeat was deferred. A CT of his chest demonstrated underlying congestive heart failure. He was given IV Lasix with good improvement. He had good urinary output and a decrease in his weight. He was able to maintain adequate saturations at his baseline oxygen at rest and with exertion. His renal function improved with Lasix. Troponin remained negative. TSH was normal. His CO2 was trending up so he was transitioned back to his home Lasix dose and remained stable. He was discharged home in stable condition and will need follow-up with his PCP in 1 to 2 weeks, cardiology in 3 to 4 weeks, and with his chiller operator for which he already has an appointment. He will need a BMP assessed at follow up. This patient was seen by Ja Hernandez PA-C under the supervision of Dr. Bernabe. [] - Physical Exam Vitals/I&O's: Vital Signs Temp Pulse Resp BP Pulse Ox 98.3 F 65 16 148/70 H 94 08/06/19 10:20 08/06/19 10:20 08/06/19 10:20 08/06/19 10:20 08/06/19 10:20 Oxygen Flow Rate (L/min) 3 Oxygen Delivery Method Nasal Cannula Weight: 209 lb 10.554 oz Body Mass Index (BMI) 34.7 Finger Stick Blood Glucose 108 Intake and Output for Last 24 Hours 08/04/19 08/05/19 08/06/19 23:59 23:59 23:59 Intake Total 1374 / 1374 320 / 320 Output Total 975 / 975 375 / 375 Balance 399 / 399 -55 / -55 General: Alert, Oriented x3, Cooperative HEENT: Atraumatic, PERRLA, EOMI, Normocephalic Neck: Supple, No JVD, Negative Carotid Bruits Lungs: Normal air movement, Rales - faint rales right base Cardiovascular: Regular rate, No murmurs Abdomen: Bowel Sounds Present, Soft, Non Tender Extremities: No edema, Capillary Refill Less than 3 Seconds Skin: No rashes, No breakdown Musculoskeletal: No Tenderness to Palpation of Joints or Extremities Neurological: Cranial nerves II-XII grossly intact Psych/Mental Status: Normal Affect, Appropriate, Alert and oriented to time, place, person, mood and affect Laboratory Results 08/05/19 15:58: POC Glucose 210 H 08/05/19 22:39: POC Glucose 170 H 08/06/19 05:40: Sodium 142, Potassium 3.9, Chloride 100, Carbon Dioxide 40.0 H, Anion Gap 2 L, BUN 39 H, Creatinine 1.72 H, Estim Creat Clear Calc 31.43, Est GFR (MDRD) Af Amer 50 L, Est GFR (MDRD) Non-Af 41 L, BUN/Creatinine Ratio 22.7 H , Glucose 129 H, Calcium 8.7 08/06/19 07:38: POC Glucose 122 H 08/06/19 11:18: POC Glucose 229 H 08/06/19 11:54: Magnesium 2.2 Current Medications Acetaminophen (Tylenol) 650 mg PO Q6H PRN PRN PRN Reason: Pain Score 1-10/Temp > 100.7 F Amlodipine Besylate (Norvasc) 2.5 mg PO DAILY [facility] Last Admin: 08/06/19 10:20 Dose: 2.5 mg Documented by: Atorvastatin Calcium (Lipitor) 40 mg PO QHS [facility] Last Admin: 08/05/19 22:46 Dose: 40 mg Documented by: Carvedilol (Coreg) 50 mg PO BID [facility] Last Admin: 08/06/19 10:20 Dose: 50 mg Documented by: Cholecalciferol (Vitamin D) 1,000 unit PO DAILY [facility] Last Admin: 08/06/19 10:21 Dose: 1,000 unit Documented by: Clopidogrel Bisulfate (Plavix) 75 mg PO DAILY [facility] Last Admin: 08/06/19 10:20 Dose: 75 mg Documented by: Cyanocobalamin (Vitamin B12) 1,000 mcg PO DAILY [facility] Last Admin: 08/06/19 10:20 Dose: 1,000 mcg Documented by: Enoxaparin Sodium (Lovenox) 30 mg SC DAILY [facility] Last Admin: 08/06/19 10:21 Dose: 30 mg Documented by: Famotidine (Pepcid) 20 mg PO BID [facility] Last Admin: 08/06/19 10:21 Dose: 20 mg Documented by: Furosemide (Lasix) 40 mg PO DAILY [facility] Last Admin: 08/06/19 11:20 Dose: 40 mg Documented by: Gabapentin (Neurontin) 100 mg PO BID [facility] Last Admin: 08/06/19 10:20 Dose: 100 mg Documented by: Glucagon () 1 mg IM .X1 PRN PRN Reason: Hypoglycemia Sodium Chloride () 250 mls @ 15 mls/hr IV .[id number] PRN PRN Reason: Saline Flush Sodium Chloride () 250 mls @ 15 mls/hr IV .[id number] PRN PRN Reason: Additional IVPB Infusion Dextrose (Dextrose 10%-Water) 250 mls @ 999 mls/hr IV .Q16M PRN; Protocol PRN Reason: HYPOGLYCEMIA Insulin Human Lispro (Humalog Kwikpen (Bkc)) 0 unit SC ACHS [facility]; Protocol Last Admin: 08/06/19 11:20 Dose: 4 unit Documented by: Insulin Human NPH (Humulin N (Bkc)) 14 units SC QAM [facility] Last Admin: 08/06/19 11:20 Dose: 14 units Documented by: Insulin Human NPH (Humulin N (Bkc)) 4 units SC QHS [facility] Last Admin: 08/05/19 22:47 Dose: 4 u Documented by: Melatonin (Melatonin) 3 mg PO QHS PRN PRN PRN Reason: INSOMNIA [facility] Last Admin: 08/06/19 10:20 Dose: 1 tablet Documented by: [id number] Ethyl Esters (Lovaza) 1 gm PO DAILY [facility] Last Admin: 08/06/19 10:21 Dose: 1 gm Documented by: Ondansetron HCl (Zofran) 4 mg IV Q8H PRN PRN PRN Reason: NAUSEA/VOMITING Pyridoxine HCl (Vitamin B-6) 100 mg PO DAILY [facility] Last Admin: 08/06/19 10:20 Dose: 100 mg Documented by: Sodium Chloride () 10 - 40 ml IV UD PRN PRN Reason: SALINE FLUSH Last Admin: 08/06/19 07:39 Dose: 10 ml Documented by: Discharge Diet: Low fat/ Low Cholesterol, 1800 Calorie Control Diet, 2000 mg Sodium Diet Discharge Activity: Return to Normal Activity Home Medications: Medications to take at Discharge Carvedilol [Coreg (Beta Sarwat)] 50 mg PO BID 07/13/14 Cholecalciferol (VIT D3) [Vitamin D3] 1,000 unit PO DAILY 07/13/14 Nitroglycerin (INPATIENT USE) [Nitrostat] 0.4 mg SUBLINGUAL Q5M PRN 07/13/14 Atorvastatin Calcium [Lipitor] 40 mg PO QHS tab 06/04/15 Clopidogrel Bisulfate [Plavix] 75 mg PO DAILY #30 tab 06/14/15 Multivitamin [Daily Multiple Vitamin] 1 ea PO DAILY 03/14/17 Insulin NPH Human Isophane [Novolin N] 6 unit SQ QHS 03/17/18 amlodipine 2.5 mg tablet 2.5 mg PO DAILY 07/06/19 cyanocobalamin (vitamin B-12) 1,000 mcg capsule 1,000 mcg PO DAILY 07/06/19 furosemide 40 mg tablet 40 mg PO DAILY 07/06/19 gabapentin 300 mg capsule 600 mg PO BID cap 07/06/19 insulin NPH isoph U-100 human 100 unit/mL subcutaneous suspension 18 unit SC QAM ml 07/06/19 insulin regular human 100 unit/mL injection solution 8 unit SC .COMPLEX 07/06/19 omega-3 fatty acids 1,000 mg capsule 1,000 mg PO DAILY 07/06/19 pyridoxine (vitamin B6) 100 mg tablet 100 mg PO DAILY 07/06/19 Famotidine [Pepcid] 20 mg PO BID 08/04/19 Primary Care Physician: Noah Jean DO [Primary Care Provider] - Please follow up with your Primary Care Physician in: 1-2 weeks Please Follow Up With: Davis Morfin MD When: Keep current appointment Please Follow Up With: Jas Momin MD When: 3-4 weeks Please Follow Up With: Noah Jean DO Patient Instructions: Taking Medication to Control Heart Failure, Heart Failure: Tracking Your Weight, Heart Failure: Procedures That May Help, Heart Failure: Making Changes to Your Diet, Heart Failure: Evaluating Your Heart, Heart Failure: Medications to Help Your Heart, Heart Failure Disposition: Home Minutes spent on discharge:: 40 Patient Condition:: Stable Medical Necessity - Tobacco Use Smoking Status: Never smoker Meaningful Use Info Meaningful Use Diagnoses (Choose all that apply): CHF - CHF PATTY/ARB ordered at discharge?: No Reason PATTY/ARB not ordered?: Worsening renal disease Documented LVEF (%): 55 <SandiciscojonyMia - Last Filed: 08/06/19 15:39> Discharge Date and Diagnosis - Secondary Discharge Diagnosis Chronic Problems (Last Reviewed 08/05/19 @ 02:36 by Leonides Ward MD) Acute exacerbation of CHF (congestive heart failure) (Chronic) Acute and chronic respiratory failure with hypoxia (Chronic) CKD (chronic kidney disease) stage 4, GFR 15-29 ml/min (Chronic) Sleep apnea (Chronic) BiPAP 25/19 cm of water with a 2 L/min oxygen bleed Atherosclerosis of coronary artery of [place] heart without angina pectoris (Chronic) CABG X 4 vessels in 1998 Obesity (BMI 30-39.9) (Chronic) Type 2 diabetes mellitus with diabetic polyneuropathy (Chronic) Peripheral vascular disease (Chronic) Malnutrition (Chronic) Delayed wound healing (Chronic) Chronic respiratory failure with hypoxia (Chronic) Stage 2 moderate COPD by GOLD classification (Chronic) Benign essential hypertension (Chronic) Hyperlipidemia (Chronic) History of coronary artery bypass graft (Chronic) CHAIREZ to LAD, SVG to PDA, free radial artery to OM1, SVG to OM2 12/12/98 Pacemaker (Chronic) Initial insertion 1998 at [facility], battery change 2007 Anemia in chronic kidney disease (Chronic) Obesity (BMI 30-39.9) (Chronic) 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 I have independently interviewed and examined the patient and reviewed pertinent historical, laboratory, and other data. Please refer to ALEXA Swartz note for his patient's presentation, findings, and recommendations. I have reviewed and his note and concur with his documentation 78-year-old with past medical history of CAD status post CABG, heart failure with preserved EF, stage III CKD, type II DM who comes in with hypoxia. He is usually on 2 L of oxygen. He had gained about [address] scan of the chest that showed CHF. Was managed as acute on chronic diastolic CHF and acute kidney injury on CKD stage III secondary to cardiorenal syndrome. He underwent treatment with IV Lasix with good improvement. He improved to his home baseline oxygen at rest. He was transitioned to his home Lasix dose. He knows to follow-up with his primary care doctor in 1 to 2 weeks. He would restrict his fluid, weigh himself daily and take all his medications. Day of discharge, patient was seen and examined. Denied any new complaint. [place] improved. Physical Exam: Gen: Morbidly obese, on 2 L oxygen,, not pale, not jaundiced CVS:HS I +II, regular, no murmurs RESP: Diminished all over lungs GI: BS present and normal, soft, nontender, no palpable organs EXT:Bilateral pedal edema +1-2 - Physical Exam Vitals/I&O's: Vital Signs Temp Pulse Resp BP Pulse Ox 98.3 F 65 16 148/70 H 94 08/06/19 10:20 08/06/19 10:20 08/06/19 10:20 08/06/19 10:20 08/06/19 10:20 Oxygen Flow Rate (L/min) 3 Oxygen Delivery Method Nasal Cannula Weight: 95.1 kg Body Mass Index (BMI) 34.7 Finger Stick Blood Glucose 108 Intake and Output for Last 24 Hours 08/04/19 08/05/19 08/06/19 23:59 23:59 23:59 Intake Total 1374 / 1374 320 / 320 Output Total 975 / 975 375 / 375 Balance 399 / 399 -55 / -55 Laboratory Results 08/05/19 15:58: POC Glucose 210 H 08/05/19 22:39: POC Glucose 170 H 08/06/19 05:40: Sodium 142, Potassium 3.9, Chloride 100, Carbon Dioxide 40.0 H, Anion Gap 2 L, BUN 39 H, Creatinine 1.72 H, Estim Creat Clear Calc 31.43, Est GFR (MDRD) Af Amer 50 L, Est GFR (MDRD) Non-Af 41 L, BUN/Creatinine Ratio 22.7 H , Glucose 129 H, Calcium 8.7 08/06/19 07:38: POC Glucose 122 H 08/06/19 11:18: POC Glucose 229 H 08/06/19 11:54: Magnesium 2.2 Current Medications Acetaminophen (Tylenol) 650 mg PO Q6H PRN PRN PRN Reason: Pain Score 1-10/Temp > 100.7 F Amlodipine Besylate (Norvasc) 2.5 mg PO DAILY [facility] Last Admin: 08/06/19 10:20 Dose: 2.5 mg Documented by: Atorvastatin Calcium (Lipitor) 40 mg PO QHS [facility] Last Admin: 08/05/19 22:46 Dose: 40 mg Documented by: Carvedilol (Coreg) 50 mg PO BID [facility] Last Admin: 08/06/19 10:20 Dose: 50 mg Documented by: Cholecalciferol (Vitamin D) 1,000 unit PO DAILY [facility] Last Admin: 08/06/19 10:21 Dose: 1,000 unit Documented by: Clopidogrel Bisulfate (Plavix) 75 mg PO DAILY [facility] Last Admin: 08/06/19 10:20 Dose: 75 mg Documented by: Cyanocobalamin (Vitamin B12) 1,000 mcg PO DAILY [facility] Last Admin: 08/06/19 10:20 Dose: 1,000 mcg Documented by: Enoxaparin Sodium (Lovenox) 30 mg SC DAILY [facility] Last Admin: 08/06/19 10:21 Dose: 30 mg Documented by: Famotidine (Pepcid) 20 mg PO BID [facility] Last Admin: 08/06/19 10:21 Dose: 20 mg Documented by: Furosemide (Lasix) 40 mg PO DAILY [facility] Last Admin: 08/06/19 11:20 Dose: 40 mg Documented by: Gabapentin (Neurontin) 100 mg PO BID [facility] Last Admin: 08/06/19 10:20 Dose: 100 mg Documented by: Glucagon () 1 mg IM .X1 PRN PRN Reason: Hypoglycemia Sodium Chloride () 250 mls @ 15 mls/hr IV .[id number] PRN PRN Reason: Saline Flush Sodium Chloride () 250 mls @ 15 mls/hr IV .[id number] PRN PRN Reason: Additional IVPB Infusion Dextrose (Dextrose 10%-Water) 250 mls @ 999 mls/hr IV .Q16M PRN; Protocol PRN Reason: HYPOGLYCEMIA Insulin Human Lispro (Humalog Kwikpen (Bkc)) 0 [facility] SC [facility]; Protocol Last Admin: 08/06/19 11:20 Dose: 4 unit Documented by: Insulin Human NPH (Humulin N (Bkc)) 14 units SC QAM [facility] Last Admin: 08/06/19 11:20 Dose: 14 units Documented by: Insulin Human NPH (Humulin N (Bkc)) 4 units SC QHS [facility] Last Admin: 08/05/19 22:47 Dose: 4 u Documented by: Melatonin (Melatonin) 3 mg PO QHS PRN PRN PRN Reason: INSOMNIA [facility]) [facility] Last Admin: 08/06/19 10:20 Dose: 1 tablet Documented by: [id number] Ethyl Esters (Lovaza) 1 gm PO DAILY [facility] Last Admin: 08/06/19 10:21 Dose: 1 gm Documented by: Ondansetron HCl (Zofran) 4 mg IV Q8H PRN PRN PRN Reason: NAUSEA/VOMITING Pyridoxine HCl (Vitamin B-6) 100 mg PO DAILY [facility] Last Admin: 08/06/19 10:20 Dose: 100 mg Documented by: Sodium Chloride () 10 - 40 ml IV UD PRN PRN Reason: SALINE FLUSH Last Admin: 08/06/19 07:39 Dose: 10 ml Documented by: Code Visit Inpatient E&M: [id number] Disch Hosp
[2019-08-07 11:13] LABS: Vitamin B12 956 pg/mL (211-911)
--- NOTE | 2019-08-07 14:24 | CASEMGMT ---
Case Management DC F/u Call: DC Date: 08/06/2019 DC Diagnosis: Acute on chronic diastolic congestive heart failure, GERMAIN on CKD stage III, Type 2 diabetes with obesity, Obstructive sleep apnea, History of pacemaker, History of CAD with prior CABG DC Disposition: Home Lace/Strata: 04/13 Called patient cell phone listed on demographics, Mariza answered whom is patient's designated HPOA. Patient currently sleeping. Per patient is a little frustrated with not being able to drink much but is doing okay. [facility] had his f/u appointment already scheduled with PCP and that is tomorrow. [facility] she was able to sort and figure all his medications out. Denies any issues, concerns or questions with [facility], medications or f/u appointments. Thanked them for choosing care at [facility] and ended conversation. Humaira Mckay RNCM
== END 2019-08-06 15:55 | disposition home or self-care (01) | DRG 291 ==
LOC: ED 22:45 → PCU 08-05
PROVIDERS: Physician Assistant; Admitting Provider Hospitalist; Emergency Provider Emergency Medicine; PCP Student in an Organized Health Care Education/Training Program; Referring Provider Student in an Organized Health Care Education/Training Program; Visit Provider Internal Medicine
DX: I13.0 Hypertensive heart and chronic kidney disease with heart failure and stage 1 through stage 4 chronic kidney disease, or unspecified chronic kidney disease (principal); I50.33 Acute on chronic diastolic (congestive) heart failure; J96.21 Acute and chronic respiratory failure with hypoxia; J96.22 Acute and chronic respiratory failure with hypercapnia; N17.9 Acute kidney failure, unspecified; N18.4 Chronic kidney disease, stage 4 (severe); G47.33 Obstructive sleep apnea (adult) (pediatric); I25.10 Atherosclerotic heart disease of native coronary artery without angina pectoris; J44.9 Chronic obstructive pulmonary disease, unspecified; E11.22 Type 2 diabetes mellitus with diabetic chronic kidney disease; D63.1 Anemia in chronic kidney disease; E11.51 Type 2 diabetes mellitus with diabetic peripheral angiopathy without gangrene; E11.42 Type 2 diabetes mellitus with diabetic polyneuropathy; I69.322 Dysarthria following cerebral infarction; E78.5 Hyperlipidemia, unspecified; E11.65 Type 2 diabetes mellitus with hyperglycemia; M79.7 Fibromyalgia; E66.9 Obesity, unspecified; Z99.81 Dependence on supplemental oxygen; Z71.3 Dietary counseling and surveillance; Z86.718 Personal history of other venous thrombosis and embolism; Z68.34 Body mass index [BMI] 34.0-34.9, adult; Z95.0 Presence of cardiac pacemaker
CPT/HCPCS: 36415; 70450; 71046; 71250; 80048; 82607; 82962; 83735; 83880; 84443; 84484; 85025; 93005; 94002; 94003; 97110; 97116; 97162; 97165; 97530; 97535; 99285; A4216; J1940

== ENCOUNTER 2019-09-11 14:57 | Emergency (ER) | payer MEDICARE, SELFPAY ==
[2016-01-28 10:00] VITALS: BMI 30.7
[2019-08-21 13:20] VITALS: BMI 34.7
[2019-09-11 14:58] VITALS: BP 144/73; PULSE 72; RESP 15; TEMP 36.8; O2SAT 89; BMI 35.4
--- NOTE | 2019-09-11 15:11 | CT_ITS ---
STUDY: CT BRAIN WITHOUT CONTRAST REASON FOR EXAM: Male, 78 years old. Headache after fall, patient on Plavix RADIATION DOSAGE (If Supplied By Facility): CTDIvol = ( 60.81 ) mGy, DLP = ( 3178.44 ) mGycm TECHNIQUE: Transaxial CT imaging of the brain was performed without administration of intravenous contrast material. Individualized dose optimization techniques were used for this CT. COMPARISON: 08/04/2019 FINDINGS: Normal soft tissue structures. Normal calvarium. Normal size ventricles and extra-axial spaces for the patient''s age. Normal white matter tracts of the cerebral hemispheres. Normal basal ganglia and thalami. Normal brainstem. Normal cerebellum. There is no intracranial hemorrhage. There are no findings of an acute ischemic infarction. Normal visualized paranasal sinuses. CT/Brain/Head without Contrast IMPRESSION: Chronic involutional changes of the brain. Electronically Signed: Booker Reyes MD at 15:43 EST , Service support ,
--- NOTE | 2019-09-11 15:12 | ED.DCSUM_ITS ---
History of Present Illness Chief Complaint: Fall Informant: Patient Onset: Yesterday Current Severity: Moderate Maximum Severity: Moderate Narrative: Patient presents with continued headache and right shoulder pain after a fall yesterday. Patient states he was using the restroom at a local business. There was an 18 inch drop from outside the door into the bathroom. He stepped down to the bathroom and lost his balance and fell onto his right side striking the right side of his head against the commode. He does not think he lost consciousness but is not sure. He is currently on Plavix. He complains of continued headache and right shoulder pain. He denies vision change, nausea, or vomiting. He took an arthritis pain pill around noon today. - Past Medical History (1) CHF (congestive heart failure) Status: Chronic (2) Atherosclerosis of coronary artery of [place] heart without angina pectoris Status: Chronic Comment: CABG X 4 vessels in 1998 (3) Benign essential hypertension Status: Chronic (4) CKD (chronic kidney disease) stage 4, GFR 15-29 ml/min Status: Chronic (5) Carotid stenosis Status: Chronic (6) Chronic respiratory failure with hypoxia Status: Chronic (7) Dysarthria due to cerebellar stroke Status: Chronic (8) Hyperlipidemia Status: Chronic (9) Pacemaker Status: Chronic Comment: Initial insertion 1998 at [facility], battery change 2007 (10) Peripheral vascular disease Status: Chronic (11) Pulmonary HTN Status: Chronic Comment: RVSP 63 mmHg (12) Sleep apnea Status: Chronic Comment: BiPAP 25/19 cm of water with a 2 L/min oxygen bleed (13) Stage 2 moderate COPD by GOLD classification Status: Chronic (14) Type 2 diabetes mellitus with diabetic polyneuropathy Status: Chronic (15) CVA (cerebral vascular accident) Status: Resolved Comment: ischemic, Right cerebellum and suspected brainstem Past Medical History - Allergies and Home Meds Allergies/Adverse Reactions: Allergies adhesive Allergy (Verified 09/11/19 15:02) Rash Beef Containing Products Allergy (Verified 09/11/19 15:02) Other cortisone Allergy (Verified 09/11/19 15:02) Other NOVACAINE Allergy (Uncoded 09/11/19 15:02) Other Primary Care Physician: Noah Jean [Primary Care Provider] - Prior records reviewed: Yes Surgical History: cataract - bilateral, coronary bypass surgery - 199 X 4 vessels, pacemaker implantation Lives: Spouse/ Significant Other Smoking Status: Never smoker - Family History Maternal Family History: Family History (Last Reviewed 08/21/19 @ 15:[address] Jas Momin MD) Father Heart disease Mother Lung cancer Family History: Reports: Cancer - breast Paternal Family History: Family History (Last Reviewed 08/21/19 @ 15:[address] Jas Momin MD) Father Heart disease Mother Lung cancer Family History: Reports: Diabetes, Heart Disease, Hypertension Review of Systems General: Denies: Chills, Fever Eyes: Denies: Visual changes - bilaterally ENT: Denies: Bilateral ear pain Cardiovascular: Denies: Chest pain, Palpitations Respiratory: Denies: Dyspnea, Cough Gastrointestinal: Denies: Abdominal pain, Nausea, Vomiting, Diarrhea Musculoskeletal: Reports: Extremity Pain. Denies: Neck pain, Back pain Skin: Reports: Wounds Neurological: Reports: Headache. Denies: Weakness, Parasthesia Hematologic: Denies: Easy bruising, Easy bleeding Allergy: Denies: Uticaria Physical Exam Vital Signs/Narrative: Vital Signs Temp Pulse Resp BP Pulse Ox 09/11/19 14:58 98.3 F 72 15 144/73 H 89 Inital Vital Signs reviewed: Yes General: Well nourished, Well developed Head: Normocephalic Eyes: Perrl, EOMI ENT: TM's clear, - - Small abrasion over the mastoid air cells on the right. Area is tender to palpation. Cardiovascular: Regular rate, Regular rhythm Respiratory: No distress, - - Diminished breath sounds bilaterally. Abdomen: Soft, Nontender Extremities: Nontender Skin: Normal color - Except abrasion to mastoid air cells as noted above. Neurological: Alert, Oriented x3, Normal Strength, Normal Sensation Psychological: Normal affect Diagnostic/Tx/Re-eval Impressions Brain CT 09/11/19 15:11 IMPRESSION: Chronic involutional changes of the brain. Electronically Signed: Booker Reyes MD at 15:43 EST , Service support , Shoulder X-Ray 09/11/19 15:31 IMPRESSION: Degenerative arthrosis Electronically Signed: Booker Reyes MD at 15:47 EST , Service support , 09/11/19 15:11 CT Head [Brain/Head without Contrast] [CT] Stat 09/11/19 15:31 Shoulder min 2 Views [RAD] Stat - Medical Decision Making Patient declined anything for pain while here. He states that he will take his next dose of pain medicine when he gets home. Test results are discussed with the patient and at bedside. They are reassured with these findings. ED Disposition - Plan for ED Patient: Disposition: Home or Assisted Living Diagnosis: Fall, Closed head injury, Shoulder sprain Instructions: FALL, Mechanical, Shoulder Sprain, HEAD INJURY, No Wake-Up (Adult) Referrals: Noah Jean [Primary Care Provider] - 1 Week if not improving
--- NOTE | 2019-09-11 15:31 | RAD_ITS ---
STUDY: X-RAY - RIGHT SHOULDER REASON FOR EXAM: Male, 78 years old. Pain, decreased range of motion TECHNIQUE: 4 view(s) of the shoulder. COMPARISON: None. FINDINGS: There is moderate degenerative arthrosis of the glenohumeral articulation. There is degenerative arthrosis of the acromioclavicular joint without inferior osseous spur formation. Normal acromion. Evidence of previous right rotator cuff repair There is demineralization of the humerus and visualized osseous structures. The soft tissue structures are unremarkable. Normal visualized pulmonary apex. RAD/Shoulder min 2 Views IMPRESSION: Degenerative arthrosis Electronically Signed: Booker Reyes MD at 15:47 EST , Service support ,
== END 2019-09-11 16:08 | disposition home or self-care (01) ==
PROVIDERS: Emergency Provider Emergency Medicine; PCP Student in an Organized Health Care Education/Training Program
DX: S09.90XA Unspecified injury of head, initial encounter (principal); S43.401A Unspecified sprain of right shoulder joint, initial encounter; I13.0 Hypertensive heart and chronic kidney disease with heart failure and stage 1 through stage 4 chronic kidney disease, or unspecified chronic kidney disease; I50.9 Heart failure, unspecified; N18.4 Chronic kidney disease, stage 4 (severe); E11.42 Type 2 diabetes mellitus with diabetic polyneuropathy; E11.22 Type 2 diabetes mellitus with diabetic chronic kidney disease; I25.10 Atherosclerotic heart disease of native coronary artery without angina pectoris; I27.20 Pulmonary hypertension, unspecified; J96.11 Chronic respiratory failure with hypoxia; J44.9 Chronic obstructive pulmonary disease, unspecified; W01.10XA Fall on same level from slipping, tripping and stumbling with subsequent striking against unspecified object, initial encounter
CPT/HCPCS: 70450; 73030; 99282